=== PATIENT | female | born 1960 | race African-American/Black ===

== ENCOUNTER → 2016-12-03 | Outpatient (CLI) | payer MEDICAID ==
--- NOTE | 2016-12-03 17:27 | WOMENS IMAGING REPORT ---
EXAM DESCRIPTION: BILAT SCREENING MAMMO W/CAD COMPLETED DATE/TIME: 12/03/2016 9:13 am REASON FOR STUDY: BILAT SCREENING MAMMO (Z12.31) Z12.31 ENCNTR SCREEN MAMMOGRAM FOR MALIGNANT NEOPL ASM OF [place] COMPARISON: 2013, 2014 TECHNIQUE: Standard craniocaudal and mediolateral oblique views of each breast recorded using digita l acquisition. LIMITATIONS: None. FINDINGS: No masses, calcifications or architectural distortion. No areas of suspicion. Read with the assistance of CAD. .[facility] - R2 Cenova Version 1.3 .[facility] - R2 Cenova Version 1.3 .[facility] - R2 Cenova Version 2.4 .[facility] [place] - R2 Cenova Version 2.4 .[facility] - R2 Parasitology Teacher Version 9.2 BREAST DENSITY: a. The breasts are almost entirely fatty. BIRAD: 1 NEGATIVE RECOMMENDATION: ROUTINE SCREENING COMMENT: PATIENT NOTIFIED BY LETTER. The [employer] recommends an annual screening mammogram for women aged 40 years or over. Each patient will receive a reminder prior to the anniversary date of her mammogram. The [employer] (ACR) has developed recommendations for screening MRI of the breast s in certain patient populations, to be used in conjunction with mammography. Breast MRI surveillanc e may be appropriate for women with more than 20% lifetime risk of developing breast cancer as deter mined by genetic testing, significant family history of the disease, or history of mantle radiation f or Hodgkins Disease. ACR Practice Guidelines 2008. TECHNICAL DOCUMENTATION: FINDING NUMBER: (1) ASSESSMENT: (1) JOB ID: [id number] [employer]- All Rights Reserved
== END ==
LOC: WI 08:45
PROVIDERS: ATTEND Internal Medicine
DX: Z12.31 Encounter for screening mammogram for malignant neoplasm of breast (principal)
CPT/HCPCS: 77067; G0202

== ENCOUNTER 2016-12-26 19:59 | Emergency (ER) | payer MEDICAID ==
[2016-12-26] MEDS ORDERED: ASPIRIN 81 MG TABLET, CHEWABLE PO ONE (20:34)
--- NOTE | 2016-12-26 20:34 | ER Document Report ---
ED Medical Screen (RME) - General Stated Complaint: BLOOD PRESSURE PROBLEMS Mode of Arrival: Ambulatory Information source: Patient Notes: 56 y/o F presents to ED c/o BLE swelling, elevated blood pressure, and intermittent chest pain with sob over the last 4 days. Reports hx of HTN and CHF. I have greeted and performed a rapid initial assessment of this patient. A comprehensive ED assessment and evaluation of the patient, analysis of test results and completion of the medical decision making process will be conducted by additional ED providers. TRAVEL OUTSIDE OF THE [place] IN LAST 30 DAYS: No - Related Data Allergies/Adverse Reactions: No Known Drug Allergies Allergy (Verified 01/24/16 14:20) tomato [Tomato] Allergy (Verified 01/24/16 14:20) Past Medical History - Past Medical History Cardiac Medical History: Reports: Hx Congestive Heart Failure, Hx Hypercholesterolemia, Hx Hypertension Pulmonary Medical History: Denies: Hx Tuberculosis GI Medical History: Reports: Hx Gastroesophageal Reflux Disease Psychiatric Medical History: Reports: Hx Anxiety, Hx Depression Past Surgical History: Reports: Hx Cholecystectomy, Hx Orthopedic Surgery - Left anterior cruciate ligament repair - Immunizations Immunizations up to date: Yes Hx Diphtheria, Pertussis, Tetanus Vaccination: Yes - unk Physical Exam - General General appearance: Alert In distress: None - Respiratory Respiratory status: No respiratory distress Breath sounds: Normal - Cardiovascular Rhythm: Regular Pulses: Normal: Radial Normal capillary refill: Yes
[2016-12-26 21:29] LABS: ABSOLUTE LYMPHOCYTES (AUTO) 2.9 10^3/uL (0.5-4.7); ABSOLUTE MONOCYTES (AUTO) 0.5 10^3/uL (0.1-1.4); ABSOLUTE NEUT (AUTO) 3.1 10^3/uL (1.7-8.2); BASOPHILS % (AUTO) 0.5 % (0-2); HEMATOCRIT 35.6 % (36.0-47.0); HEMOGLOBIN 11.7 g/dL (12.0-15.5); HGB HCT DIFFERENCE -0.5; LYMPHOCYTES % (AUTO) 44.5 % (13-45); MEAN CORPUSCULAR HEMOGLOBIN 30.2 pg (27.0-33.4); MEAN CORPUSCULAR HGB CONC 32.9 g/dL (32.0-36.0); MEAN CORPUSCULAR VOLUME 92 fl (80-97); MONOCYTES % (AUTO) 7.2 % (3-13); RED BLOOD COUNT 3.87 10^6/uL (3.72-5.28); RED CELL DISTRIBUTION WIDTH 16.4 % (11.5-14.0); SEGMENTED NEUTROPHILS % (AUTO) 47.8 % (42-78); WHITE BLOOD COUNT 6.5 10^3/uL (4.0-10.5)
[2016-12-26 21:31] LABS: APPEARANCE,URINE CLEAR; BILIRUBIN,URINE NEGATIVE (NEGATIVE); GLUCOSE, URINE NEGATIVE (NEGATIVE); KETONES,URINE NEGATIVE (NEGATIVE); LEUKOCYTE ESTERASE,URINE NEGATIVE (NEGATIVE); NITRITE,URINE NEGATIVE (NEGATIVE); PROTEIN,URINE NEGATIVE (NEGATIVE); URINE SPECIFIC GRAVITY 1.003; UROBILINOGEN,URINE NEGATIVE mg/dL (<2.0)
[2016-12-26 21:46] LABS: ALANINE AMINOTRANSFERASE 46 U/L (9-52); ALBUMIN 4.5 g/dL (3.5-5.0); ALKALINE PHOSPHATASE 92 U/L (38-126); ANION GAP 16 (5-19); ASPARTATE AMINO TRANSFERASE 39 U/L (14-36); BILIRUBIN,TOTAL 0.3 mg/dL (0.2-1.3); BLOOD UREA NITROGEN 9 mg/dL (7-20); CARBON DIOXIDE 28 mmol/L (22-30); CHLORIDE 99 mmol/L (98-107); CREATINE KINASE 500 U/L (30-135); CREATININE RESULT 0.93 mg/dL (0.52-1.25); GLUCOSE 146 mg/dL (75-110); POTASSIUM 3.5 mmol/L (3.6-5.0); SODIUM 142.7 mmol/L (137-145); TOTAL PROTEIN 7.5 g/dL (6.3-8.2)
[2016-12-26 21:59] LABS: TROPONIN I < 0.012 ng/mL
--- NOTE | 2016-12-26 22:12 | EKG REPORT ---
SEVERITY:- BORDERLINE ECG - SINUS TACHYCARDIA BORDERLINE R WAVE PROGRESSION, ANTERIOR LEADS BORDERLINE T WAVE ABNORMALITIES : Confirmed by: Rodolfo Batista 26-Dec-2016 22:12:16
[2016-12-26 22:50] VITALS: BP 168/91
== END 2016-12-27 00:30 | disposition left against medical advice (07) ==
LOC: ER 19:59
DX: I10 Essential (primary) hypertension (principal); M79.89 Other specified soft tissue disorders; R07.9 Chest pain, unspecified; R06.02 Shortness of breath; Z91.018 Allergy to other foods; Z53.20 Procedure and treatment not carried out because of patient's decision for unspecified reasons
CPT/HCPCS: 36415; 71020; 80053; 81001; 82550; 82553; 83880; 84484; 85025; 93005; 93010; 99281

== ENCOUNTER 2017-01-14 11:05 | Emergency (ER) | payer MEDICAID ==
[2017-01-14] MEDS ORDERED: ASPIRIN 81 MG TABLET, CHEWABLE PO ONE (11:32)
--- NOTE | 2017-01-14 11:59 | EKG REPORT ---
SEVERITY:- OTHERWISE NORMAL ECG - SINUS TACHYCARDIA : Confirmed by: Krystal Farrell MD 14-Jan-2017 11:57:40
[2017-01-14 12:51] LABS: ABSOLUTE LYMPHOCYTES (AUTO) 1.8 10^3/uL (0.5-4.7); ABSOLUTE MONOCYTES (AUTO) 0.5 10^3/uL (0.1-1.4); ABSOLUTE NEUT (AUTO) 6.6 10^3/uL (1.7-8.2); BASOPHILS % (AUTO) 0.5 % (0-2); HEMATOCRIT 32.9 % (36.0-47.0); HEMOGLOBIN 10.9 g/dL (12.0-15.5); HGB HCT DIFFERENCE -0.2; LYMPHOCYTES % (AUTO) 20.3 % (13-45); MEAN CORPUSCULAR HGB CONC 33.2 g/dL (32.0-36.0); MEAN CORPUSCULAR VOLUME 91 fl (80-97); MONOCYTES % (AUTO) 5.2 % (3-13); RED BLOOD COUNT 3.64 10^6/uL (3.72-5.28); RED CELL DISTRIBUTION WIDTH 16.1 % (11.5-14.0); WHITE BLOOD COUNT 8.9 10^3/uL (4.0-10.5)
[2017-01-14 13:14] LABS: ALANINE AMINOTRANSFERASE 31 U/L (9-52); ALBUMIN 3.8 g/dL (3.5-5.0); ALKALINE PHOSPHATASE 88 U/L (38-126); ANION GAP 11 (5-19); ASPARTATE AMINO TRANSFERASE 36 U/L (14-36); BILIRUBIN,TOTAL 0.4 mg/dL (0.2-1.3); BLOOD UREA NITROGEN 9 mg/dL (7-20); CALCIUM 9.1 mg/dL (8.4-10.2); CARBON DIOXIDE 33 mmol/L (22-30); CHLORIDE 98 mmol/L (98-107); CREATINE KINASE 233 U/L (30-135); CREATININE RESULT 0.74 mg/dL (0.52-1.25); GLUCOSE 100 mg/dL (75-110); POTASSIUM 3.3 mmol/L (3.6-5.0); SODIUM 142.4 mmol/L (137-145); TOTAL PROTEIN 7.3 g/dL (6.3-8.2)
[2017-01-14 13:25] LABS: CREATINE KINASE MB 2.38 ng/mL (<4.55)
[2017-01-14 13:27] LABS: TROPONIN I < 0.012 ng/mL
--- NOTE | 2017-01-14 14:07 | ER Document Report ---
ED General - General Time seen by provider: 13:55 Mode of Arrival: Ambulatory Information source: Patient TRAVEL OUTSIDE OF THE [place] IN LAST 30 DAYS: No - HPI Onset: Other - see HPI note <DELPHINE ESPINOZA - Last Filed: 01/14/17 14:14> <ALMAMIKEL - Last Filed: 01/14/17 14:32> - General Chief Complaint: Chest Pain > 30 Stated Complaint: CHEST PAIN Notes: Patient is a 56-year-old female presented emergency department with complaints of chest pain and headache. Patient states that her chest pain episodes occur about 2 times every hour and a last for 1-2 minutes each time. Patient states that located in the middle of her chest and around her left breast. Patient states that during these episodes she becomes short of breath, nauseous, diaphoretic, and cough. Patient states she gets a headache after her chest pain while he was in these headaches last for approximately 30 minutes. Patient states that these chest pain episodes occur 6-7 times each day. Patient states these episodes have been going on all week long. Patient has had increased level of stress over the past year. Patient lost her sister in December, her mother approximately 8-9 months ago and just last week she lost her son. Patient also states that she gets some dizzy spells where she has to sit down and these dizzy spells have increased with the chest pain episodes. Patient did not receive flu shot this year but did receive a pneumonia vaccination; patient requests a flu shot today in the emergency department. Patient had a cardiac catheterization in the past 2 years that showed no significant finding. Patient's PCP is Dr. Beaslye. (DELPHINE ESPINOZA ) - Related Data Allergies/Adverse Reactions: No Known Drug Allergies Allergy (Verified 01/24/16 14:20) tomato [Tomato] Allergy (Verified 01/24/16 14:20) Past Medical History - General Information source: Patient - Social History Smoking Status: Unknown if Ever Smoked Family History: Other - Father in an MVC at a young age, mother is 72 and bedridden with arthritis, there is no history of early age onset coronary artery disease. - Past Medical History Cardiac Medical History: Reports: Hx Congestive Heart Failure, Hx Hypercholesterolemia, Hx Hypertension GI Medical History: Reports: Hx Gastroesophageal Reflux Disease Psychiatric Medical History: Reports: Hx Anxiety, Hx Depression Past Surgical History: Reports: Hx Cholecystectomy, Hx Orthopedic Surgery - Left anterior cruciate ligament repair - Immunizations Immunizations up to date: Yes Hx Diphtheria, Pertussis, Tetanus Vaccination: Yes - unk Hx Pneumococcal Vaccination: 04/13/14 <DELPHINE ESPINOZA - Last Filed: 01/14/17 14:14> Review of Systems - Review of Systems Constitutional: No symptoms reported EENT: No symptoms reported Cardiovascular: See HPI, Chest pain Respiratory: See HPI, Cough, Short of breath Gastrointestinal: See HPI, Nausea Genitourinary: No symptoms reported Female Genitourinary: No symptoms reported Musculoskeletal: No symptoms reported Skin: No symptoms reported Hematologic/Lymphatic: No symptoms reported Neurological/Psychological: See HPI, Headaches -: Yes All other systems reviewed and negative <DELPHINE ESPINOZA - Last Filed: 01/14/17 14:14> Physical Exam - Vital signs Interpretation: Normal - General General appearance: Appears well, Alert In distress: Mild - HEENT Head: Normocephalic, Atraumatic Eyes: Normal Pupils: PERRL Mucous membranes: Moist - Respiratory Respiratory status: No respiratory distress Chest status: Nontender Breath sounds: Normal Chest palpation: Normal - Cardiovascular Rhythm: Regular Heart sounds: Normal auscultation Murmur: No - Abdominal Inspection: Morbidly Obese Distension: No distension Bowel sounds: Normal Tenderness: Nontender Organomegaly: No organomegaly - Back Back: Normal, Nontender - Extremities General upper extremity: Normal inspection, Normal ROM, Normal strength General lower extremity: Normal inspection, Normal ROM, Normal strength - Neurological Neuro grossly intact: Yes Cognition: Normal Orientation: AAOx4 Emmanuel Coma Scale Eye Opening: Spontaneous [place] Coma Scale Verbal: Oriented Emmanuel Coma Scale Motor: Obeys Commands Emmanuel Coma Scale Total: 15 Speech: Normal - Psychological Associated symptoms: Normal affect, Normal mood - Skin Skin Temperature: Warm Skin Moisture: Dry <DELPHINE ESPINOZA - Last Filed: 01/14/17 14:14> Course - Laboratory Result Diagrams: 01/14/17 12:17 01/14/17 12:17 <DELPHINE ESPINOZA - Last Filed: 01/14/17 14:14> - Laboratory Result Diagrams: 01/14/17 12:17 01/14/17 12:17 - Diagnostic Test Radiology reviewed: Image reviewed, Reports reviewed - Chest x-ray does not show any acute process - EKG Interpretation by Ok EKG shows normal: Sinus rhythm, [place], Intervals, ST-T Waves. abnormal: QRS Complexes - Borderline R-wave progression in anterior leads Rate: Tachycardia - 107 When compared to previous EKG there are: No significant change <MIKEL MARQUEZ - Last Filed: 01/14/17 14:32> - Vital Signs Vital signs: Temp Pulse Resp BP Pulse Ox 99.3 F 107 H 33 H 159/97 H 95 01/14/17 11:19 01/14/17 11:19 01/14/17 13:01 01/14/17 13:01 01/14/17 13:01 (DELPHINE ESPINOZA) (MIKEL MARQUEZ) - Laboratory Laboratory results interpreted by ct: 01/14/17 01/14/17 12:17 12:17 RBC 3.64 L Hgb 10.9 L Hct 32.9 L RDW 16.1 H Potassium 3.3 L Carbon Dioxide 33 H Creatine Kinase 233 H (DELPHINE ESPINOZA) (MIKEL MARQUEZ) Discharge <DELPHINE ESPINOZA - Last Filed: 01/14/17 14:14> <MIKEL MARQUEZ - Last Filed: 01/14/17 14:32> - Discharge Clinical Impression: Acute reaction to situational stress Chest pain Qualifiers: Chest pain type: unspecified Qualified Code(s): R07.9 - Chest pain, unspecified Condition: Stable Disposition: HOME, SELF-CARE Additional Instructions: Chest Pain of Unclear Cause: The exact cause of your chest pain isn't clear. Fortunately, there is no evidence of a dangerous medical condition. Further testing may be required to find the source of the pain. Most often, we find that this pain is coming from the chest wall -- the muscles or rib joints in the chest. But chest pain can come from the lung and lung lining, the esophagus, the heart valves or heart lining, and even the stomach or gallbladder. Rest. Eat lightly until the pain is gone. We may prescribe medicine for pain and inflammation. You should call the physician immediately if the pain radiates to the shoulder, jaw or arms; if you start to run a fever or develop a cough; or if you develop shortness of breath, or other new or alarming symptoms. Anxiety/STRESS The physician feels that some of your health problems are being caused by anxiety and stress. Anxiety affects your health in many ways. Anxiety alone can cause palpitations, sweats, chest pains, abdominal pains, shortness of breath, and headaches. It contributes to ulcer disease, high blood pressure, irritable bowel syndrome, and has been shown to cause flare-ups of many other diseases. Anxiety is not a simple disorder to treat. If the anxiety is due to recent life stresses, you may simply need time to "work through" the changes. If the anxiety is due to an underlying unhappiness with yourself or due to psychiatric disturbance, professional help will be needed. Your physician can refer you for further help if needed. Anti-anxiety medication is occasionally given if the stress is acute or if you are having trouble sleeping. Chronic or frequent use of these medications is not a good idea because the body becomes reliant on it, preventing you from dealing with life's normal stresses. //////////////////////////////////////////////////////////////////////////////// ///////////////////////////////////////////////////////////////////////////// Your chest x-ray, EKG, and lab work are all unremarkable. Your symptoms seem to be related to the increased stress that you've been under recently. You should continue your regular medications. Try to get plenty of rest. Follow-up with your doctor tomorrow as scheduled. RETURN TO THE EMERGENCY ROOM IF ANY NEW OR WORSENING SYMPTOMS. Referrals: ED BEASLEY MD [Primary Care Provider] - Follow up tomorrow Scribe Attestation: 01/14/17 14:32 I personally performed the services described in the documentation, reviewed and edited the documentation which was dictated to the scribe in my presence, and it accurately records my words and actions. (MIKEL MARQUEZ) Scribe Documentation - Scribe Written by Scribe:: Delphine Espinoza 01/14/17 acting as scribe for :: Alma <DELPHINE ESPINOZA - Last Filed: 01/14/17 14:14>
[2017-01-14] MEDS ORDERED: INFLUENZA ADLT QUAD (36MOS+) 2016-17 VAC 0.5 ML SYR IM ONE (14:52)
[2017-01-14 15:29] VITALS: BP 133/90
== END 2017-01-14 15:30 | disposition home or self-care (01) ==
LOC: ER 11:05
DX: R07.9 Chest pain, unspecified (principal); F43.0 Acute stress reaction; R51 Headache; R06.02 Shortness of breath; R11.0 Nausea; R61 Generalized hyperhidrosis; R05 Cough; R00.0 Tachycardia, unspecified; R42 Dizziness and giddiness; I10 Essential (primary) hypertension; Z23 Encounter for immunization
CPT/HCPCS: 93005; 99285; 36415; 82553; 82550; 85025; 80053; 84484; 71010; 90686; 93010; G0008; 90471

== ENCOUNTER 2017-01-29 13:34 | Emergency (ER) | payer MEDICAID ==
--- NOTE | 2017-01-29 13:45 | ER Document Report ---
ED Medical Screen (RME) - General Stated Complaint: POSSIBLE BUG BITE Notes: 56 yo female c/o swelling and color change to left lower leg and foot x several months. pt is concerned she may have been bitten by insect several months ago. left foot is warm, nontender. few hyperpigmented areas to dorsal foot TRAVEL OUTSIDE OF THE [place] IN LAST 30 DAYS: No - Related Data Allergies/Adverse Reactions: No Known Drug Allergies Allergy (Verified 01/24/16 14:20) tomato [Tomato] Allergy (Verified 01/24/16 14:20) Past Medical History - Past Medical History Cardiac Medical History: Reports: Hx Congestive Heart Failure, Hx Hypercholesterolemia, Hx Hypertension Pulmonary Medical History: Denies: Hx Tuberculosis Renal/ Medical History: Denies: Hx Peritoneal Dialysis GI Medical History: Reports: Hx Gastroesophageal Reflux Disease Psychiatric Medical History: Reports: Hx Anxiety, Hx Depression Past Surgical History: Reports: Hx Cholecystectomy, Hx Orthopedic Surgery - Left anterior cruciate ligament repair - Immunizations Immunizations up to date: Yes Hx Diphtheria, Pertussis, Tetanus Vaccination: Yes - unk
--- NOTE | 2017-01-29 15:59 | ER Document Report ---
ED General - General Chief Complaint: Insect Bite Stated Complaint: POSSIBLE BUG BITE Mode of Arrival: Ambulatory Information source: Patient Notes: Patient is a 56 yo female with PMhx of HTN, HLD who presents with 2 month history of leg pain and discoloration. She states pain in legs are worse with ambulation and relieved rest. She believes she was bit by a bug or spider approximately 2 months ago to lateral upper thigh but denies any bleeding , drainage, erythema, warmth to site. She endorses swelling and dark coloration to her lower extremities, left worse than right. She also reports bilateral knee pain that is worse in the morning before getting out of bed. She takes tramadol for pain which does provide relief. She does take cholesterol medication, lisinopril and daily 81 mg ASA. She is a non-smoker. TRAVEL OUTSIDE OF THE [place] IN LAST 30 DAYS: No - Related Data Allergies/Adverse Reactions: No Known Drug Allergies Allergy (Verified 01/29/17 13:39) tomato [Tomato] Allergy (Verified 01/29/17 13:39) Past Medical History - Social History Smoking Status: Never Smoker Chew tobacco use (# tins/day): No Frequency of alcohol use: None Drug Abuse: None Family History: Other - Father in an MVC at a young age, mother is 72 and bedridden with arthritis, there is no history of early age onset coronary artery disease. Patient has suicidal ideation: No Patient has homicidal ideation: No - Past Medical History Cardiac Medical History: Reports: Hx Congestive Heart Failure, Hx Hypercholesterolemia, Hx Hypertension Pulmonary Medical History: Denies: Hx Tuberculosis Renal/ Medical History: Denies: Hx Peritoneal Dialysis GI Medical History: Reports: Hx Gastroesophageal Reflux Disease Psychiatric Medical History: Reports: Hx Anxiety, Hx Depression Past Surgical History: Reports: Hx Cholecystectomy, Hx Orthopedic Surgery - Left anterior cruciate ligament repair - Immunizations Immunizations up to date: Yes Hx Diphtheria, Pertussis, Tetanus Vaccination: Yes - unk Hx Pneumococcal Vaccination: 04/13/14 Review of Systems - Review of Systems Constitutional: No symptoms reported EENT: No symptoms reported Cardiovascular: See HPI Respiratory: No symptoms reported Gastrointestinal: No symptoms reported Genitourinary: No symptoms reported Female Genitourinary: No symptoms reported Musculoskeletal: No symptoms reported Skin: See HPI Hematologic/Lymphatic: No symptoms reported Neurological/Psychological: No symptoms reported Physical Exam - Vital signs Vitals: Temp Pulse Resp BP Pulse Ox 97.6 F 90 18 152/71 H 96 01/29/17 13:39 01/29/17 13:39 01/29/17 13:39 01/29/17 13:39 01/29/17 13:39 Interpretation: Hypertensive - Notes Notes: PHYSICAL EXAM: CONSTITUTIONAL: Alert and oriented, well-appearing and in no acute distress. HENT: Normocephalic, atraumatic. Moist mucous membranes. EYES: Pupils equal round and reactive to light, EOM intact. Sclera anicteric, conjunctiva are normal. No entrapment. HEART: Regular rate and rhythm without murmurs. LUNGS: CTAB and equal. No wheezes, rales or rhonchi. BACK: nontender, no paraspinous spasm, 5+/5 strengths, DTRs 2+, SLR -. EXTREMITIES: Bilateral knees -tender to palpation in infrapatellar region without swelling, erythema, effusion, edema. Normal range of motion, no pitting edema. No cyanosis. Cap Refill <3 seconds. 2+ equal distal pulses bilaterally. No calf tenderness. NEURO: Cranial nerves grossly intact. Normal sensory/motor exams. PSYCH: Normal mood, normal affect. SKIN: Warm and dry. Normal turgor. No rashes or lesions noted. No puncture wound to upper left thigh or palpable collection of fluid. Brawny dark discoloration to distal extremities in the pre-tibial region bilaterally, L worse than R. No erythema, area of cellulitis or abscess. Course - Re-evaluation Re-evalutation: 01/29/17 16:02 Patient seen and examined. No evidence of cellulitis, abscess or spider bite to left upper thigh. No calf tenderness or evidence of compartment syndrome. Exams of knees consistent with osteoarthritis, skin discoloration consistent with PVD and history consistent with concern for claudication. Discussed with patient appropriate outpatient follow-up, current management including compliance with HTN, HLD medications and ASA therapy. Discharged home in stable condition, follow-up with PMD/Cardio. Patient verbally agreed with management and plan. All questions answered. - Vital Signs Vital signs: Temp Pulse Resp BP Pulse Ox 97.6 F 90 18 152/71 H 96 01/29/17 13:39 01/29/17 13:39 01/29/17 13:39 01/29/17 13:39 01/29/17 13:39 Discharge - Discharge Clinical Impression: Claudication of both lower extremities, Hyperpigmentation Osteoarthritis Qualifiers: Osteoarthritis location: knee Osteoarthritis type: primary Laterality: bilateral Qualified Code(s): M17.0 - Bilateral primary osteoarthritis of knee Condition: Stable Disposition: HOME, SELF-CARE Additional Instructions: Peripheral Vascular Disease You have narrowing of the arteries in your arms and legs. This is called peripheral vascular disease. It's caused by "hardening of the arteries" and cholesterol deposits. This problem develops gradually due to high blood pressure , cigarette smoking, diabetes, or high cholesterol. Symptoms can include pain leg and foot cramps, leg pain while walking, and numbness and discoloration in the feet or toes. Vascular disease makes the feet and legs prone to infection, skin ulcers, and slow healing of injuries. A narrowed artery can suddenly block, resulting in complete loss of circulation to a foot or toe. An ultrasound or angiogram can show if the blockage can be treated with surgery. Non-surgical treatment includes regular exercise with brief periods of rest during the exercise. This improves the circulation. If you smoke, stop. Elevated cholesterol, high blood pressure, or high blood sugar should be treated. Medication can sometimes help blood get through the narrowed arteries. Take good care of your feet. Wear shoes that fit properly. Be very careful not to injure your feet. Even minor cuts need immediate care to prevent infection and skin ulcers. Call the doctor or return if you develop severe foot or leg pain, fever, signs of infection (redness, pain, swelling), or a foot or toe becomes weak, cold, pale, or dusky. Continue to take your daily aspirin, high blood pressure and high cholesterol medication. Return immediately for any new or worsening symptoms. Follow-up with primary care provider, call tomorrow to make followup appointment. Forms: Elevated Blood Pressure
[2017-01-29 16:39] VITALS: BP 167/93
== END 2017-01-29 16:43 | disposition home or self-care (01) ==
LOC: ER 13:34
DX: I73.9 Peripheral vascular disease, unspecified (principal); L81.9 Disorder of pigmentation, unspecified; M17.0 Bilateral primary osteoarthritis of knee; I50.9 Heart failure, unspecified; E78.00 Pure hypercholesterolemia, unspecified; I11.0 Hypertensive heart disease with heart failure; Z90.49 Acquired absence of other specified parts of digestive tract; Z79.82 Long term (current) use of aspirin
CPT/HCPCS: 99281

== ENCOUNTER 2017-04-09 12:30 | Emergency (ER) | payer MEDICAID ==
--- NOTE | 2017-04-09 20:25 | ER Document Report ---
ED Respiratory Problem - General Time Seen by Provider: 04/09/17 20:12 TRAVEL OUTSIDE OF THE [place] IN LAST 30 DAYS: No - Related Data Allergies/Adverse Reactions: No Known Drug Allergies Allergy (Verified 01/29/17 13:39) tomato [Tomato] Allergy (Verified 01/29/17 13:39) Past Medical History - Social History Family History: Other - Father in an MVC at a young age, mother is 72 and bedridden with arthritis, there is no history of early age onset coronary artery disease. - Past Medical History Cardiac Medical History: Reports: Hx Congestive Heart Failure, Hx Hypercholesterolemia, Hx Hypertension Pulmonary Medical History: Denies: Hx Tuberculosis Renal/ Medical History: Denies: Hx Peritoneal Dialysis GI Medical History: Reports: Hx Gastroesophageal Reflux Disease Psychiatric Medical History: Reports: Hx Anxiety, Hx Depression Past Surgical History: Reports: Hx Cholecystectomy, Hx Orthopedic Surgery - Left anterior cruciate ligament repair - Immunizations Immunizations up to date: Yes Hx Diphtheria, Pertussis, Tetanus Vaccination: Yes - unk Hx Pneumococcal Vaccination: 04/13/14
[2017-04-09] MEDS ORDERED: ASPIRIN 81 MG TABLET, CHEWABLE PO ONE (20:26)
[2017-04-09] MEDS ORDERED: ONDANSETRON 4 MG TAB.RAPDIS PO ONE (20:51)
[2017-04-09] MEDS ORDERED: CARVEDILOL 12.5 MG TABLET PO ONE (20:51)
[2017-04-09] MEDS ORDERED: LISINOPRIL 10 MG TABLET PO ONE (20:52)
--- NOTE | 2017-04-09 20:53 | ER Document Report ---
ED General - General Chief Complaint: Weakness Time Seen by Provider: 04/09/17 20:12 Notes: Patient is a 56-year-old female comes emergency department for chief complaint of feeling weak for about 3 days with intermittent episodes of nausea, a few episodes of vomiting, occasional cough with some yellowish greenish sputum production, feeling short of breath, and eating less. She was evaluated by her primary care provider today and was sent to the emergency department for evaluation. TRAVEL OUTSIDE OF THE [place] IN LAST 30 DAYS: No - Related Data Allergies/Adverse Reactions: No Known Drug Allergies Allergy (Verified 01/29/17 13:39) tomato [Tomato] Allergy (Verified 01/29/17 13:39) Past Medical History - General Information source: Patient - Social History Smoking Status: Former Smoker Drug Abuse: None Lives with: Family Family History: Reviewed & Not Pertinent, Other - Father in an MVC at a young age, mother is 72 and bedridden with arthritis, there is no history of early age onset coronary artery disease. - Past Medical History Cardiac Medical History: Reports: Hx Congestive Heart Failure, Hx Hypercholesterolemia, Hx Hypertension Pulmonary Medical History: Denies: Hx Tuberculosis Renal/ Medical History: Denies: Hx Peritoneal Dialysis GI Medical History: Reports: Hx Gastroesophageal Reflux Disease Psychiatric Medical History: Reports: Hx Anxiety, Hx Depression Past Surgical History: Reports: Hx Cholecystectomy, Hx Orthopedic Surgery - Left anterior cruciate ligament repair - Immunizations Immunizations up to date: Yes Hx Diphtheria, Pertussis, Tetanus Vaccination: Yes - unk Hx Pneumococcal Vaccination: 04/13/14 Review of Systems - Review of Systems Constitutional: See HPI EENT: No symptoms reported Cardiovascular: See HPI Respiratory: See HPI Gastrointestinal: See HPI Genitourinary: See HPI Female Genitourinary: No symptoms reported Musculoskeletal: No symptoms reported Skin: No symptoms reported Hematologic/Lymphatic: No symptoms reported Neurological/Psychological: See HPI Physical Exam - Vital signs Vitals: Temp Pulse Resp BP Pulse Ox 97.9 F 92 18 186/112 H 96 04/09/17 23:00 04/09/17 23:00 04/09/17 23:00 04/09/17 23:00 04/09/17 23:00 Interpretation: Normal - General General appearance: Appears well, Alert In distress: None - Is alert and well-appearing - HEENT Head: Normocephalic, Atraumatic Eyes: Normal Conjunctiva: Normal Extraocular movements intact: Yes Eyelashes: Normal Pupils: PERRL Mucous membranes: Normal Pharynx: Normal Neck: Normal - Respiratory Respiratory status: No respiratory distress. No: Respiratory distress, Labored , Tachypnea Chest status: Nontender Breath sounds: Normal. No: Decreased air movement, Wheezing Chest palpation: Normal - Cardiovascular Rhythm: Regular. No: Tachycardia Heart sounds: Normal auscultation, S1 appreciated, S2 appreciated Murmur: No - Abdominal Inspection: Normal Distension: No distension Bowel sounds: Normal Tenderness: Nontender Organomegaly: No organomegaly - Back Back: Normal, Nontender - Extremities General upper extremity: Normal inspection, Nontender, Normal color, Normal ROM , Normal temperature General lower extremity: Normal inspection, Nontender, Normal color, Normal ROM , Normal temperature, Normal weight bearing. No: Darius's sign - Neurological Neuro grossly intact: Yes Cognition: Normal Orientation: AAOx4 [place] Coma Scale Eye Opening: Spontaneous Emmanuel Coma Scale Verbal: Oriented [place] Coma Scale Motor: Obeys Commands [place] Coma Scale Total: 15 Speech: Normal Motor strength normal: LUE, RUE, LLE, RLE Sensory: Normal - Psychological Associated symptoms: Normal affect, Normal mood - Skin Skin Temperature: Warm Skin Moisture: Dry Skin Color: Normal Course - Re-evaluation Re-evalutation: Patient is nervous appearing, states she feels short of breath on my evaluation , slightly jittery in appearance, however her lungs are clear, she has no tachypnea, no hypoxia, chest x-ray unremarkable, BNP unremarkable, cardiac enzymes unremarkable. No leukocytosis or fever. Patient states she has had a cough but has normal respiratory exam abdomen is soft, chemistry unremarkable, vital signs unremarkable, no acute abnormalities noted. Patient states that she is nauseated and that is the reason she did not take her medicine, although she did take certain medications and not others. Provided with her blood pressure medication, given nausea medication. On reevaluation patient relaxed and well-appearing. Blood pressure improving shortly after patient was given her medications. Urinalysis shows some leukocytes and bacteria, stating she is having urinary symptoms. Also when she is having coughing and sputum production. Tachycardia , hypoxia, tachypnea, or suggestion of acute etiology such as pulmonary embolism or ACS. Patient will be treated with doxycycline for potential pneumonia and coverage of urinary symptoms, provided with Zofran for nausea along with prescription, follow-up closely with her primary provider, discussed return precautions in detail. Patient and significant other states satisfaction with this, patient remains smiling and well-appearing on reexamination discharge 04/10/17 Requesting Diflucan after taking the antibiotics because of history of yeast infections. - Vital Signs Vital signs: Temp Pulse Resp BP Pulse Ox 98.1 F 84 18 170/107 H 96 04/10/17 00:50 04/10/17 00:50 04/10/17 00:50 04/10/17 00:50 04/10/17 00:50 - Laboratory Result Diagrams: 04/09/17 14:40 04/09/17 14:40 Laboratory results interpreted by me: 04/09/17 23:16 Urine Protein 30 H Discharge - Discharge Clinical Impression: Generalized weakness, Productive cough Condition: Stable Disposition: HOME, SELF-CARE Additional Instructions: The chest x-ray and workup did not show any concerning abnormalities. Take doxycycline antibiotic as directed for productive cough and borderline urinalysis. Take the Zofran or Phenergan for nausea. Please do not skip your daily medications and take them as prescribed. Return to emergency department for any concerning worsening symptoms including abdominal pain, chest pain, difficulty breathing, or any other concerning worsening symptoms. Prescriptions: Doxycycline Hyclate 100 mg PO BID #14 capsule Fluconazole [Diflucan] 150 mg PO ONCE PRN #1 tablet PRN Reason: Promethazine HCl [Phenergan 25 mg Tablet] 1 - 2 tab PO Q6H PRN #15 tablet PRN Reason: Forms: Elevated Blood Pressure Referrals: ED BEASLEY MD [Primary Care Provider] - Follow up as needed
[2017-04-10 00:01] LABS: APPEARANCE,URINE SLIGHTLY-CLOUDY; BILIRUBIN,URINE NEGATIVE (NEGATIVE); GLUCOSE, URINE NEGATIVE (NEGATIVE); KETONES,URINE NEGATIVE (NEGATIVE); LEUKOCYTE ESTERASE,URINE NEGATIVE (NEGATIVE); NITRITE,URINE NEGATIVE (NEGATIVE); PROTEIN,URINE 30 mg/dL (NEGATIVE); URINE SPECIFIC GRAVITY 1.018; UROBILINOGEN,URINE NEGATIVE mg/dL (<2.0)
[2017-04-10] MEDS ORDERED: ONDANSETRON 4 MG TAB.RAPDIS PO ONE (00:22)
[2017-04-10] MEDS ORDERED: DOXYCYCLINE HYCLATE 100 MG TABLET PO ONE (00:22)
[2017-04-10 00:51] VITALS: BP 170/107
[2017-04-10 09:13] LABS: ABSOLUTE BASOPHILS # (AUTO) 0.1 10^3/uL (0.0-0.2); ABSOLUTE LYMPHOCYTES (AUTO) 2.9 10^3/uL (0.5-4.7); ABSOLUTE MONOCYTES (AUTO) 0.6 10^3/uL (0.1-1.4); ABSOLUTE NEUT (AUTO) 3.5 10^3/uL (1.7-8.2); BASOPHILS % (AUTO) 0.8 % (0-2); EOSINOPHILS % (AUTO) 0.1 % (0-6); HEMATOCRIT 40.8 % (36.0-47.0); HEMOGLOBIN 13.1 g/dL (12.0-15.5); HGB HCT DIFFERENCE -1.5; LYMPHOCYTES % (AUTO) 40.6 % (13-45); MEAN CORPUSCULAR HEMOGLOBIN 30.1 pg (27.0-33.4); MEAN CORPUSCULAR HGB CONC 32.2 g/dL (32.0-36.0); MEAN CORPUSCULAR VOLUME 94 fl (80-97); MONOCYTES % (AUTO) 8.8 % (3-13); RED BLOOD COUNT 4.36 10^6/uL (3.72-5.28); RED CELL DISTRIBUTION WIDTH 16.5 % (11.5-14.0); SEGMENTED NEUTROPHILS % (AUTO) 49.7 % (42-78); WHITE BLOOD COUNT 7.1 10^3/uL (4.0-10.5)
--- NOTE | 2017-04-10 10:31 | EKG REPORT ---
SEVERITY:- ABNORMAL ECG - SINUS RHYTHM FIRST DEGREE AV BLOCK CONSIDER ANTERIOR INFARCT : Confirmed by: Krystal Farrell MD 10-Apr-2017 10:30:48
[2017-04-10 12:02] LABS: CREATINE KINASE MB 1.18 ng/mL (<4.55); TROPONIN I < 0.012 ng/mL
[2017-04-10 12:03] LABS: ALBUMIN 4.8 g/dL (3.5-5.0); ANION GAP 14 (5-19); BLOOD UREA NITROGEN 14 mg/dL (7-20); CALCIUM 10.3 mg/dL (8.4-10.2); CARBON DIOXIDE 28 mmol/L (22-30); CHLORIDE 101 mmol/L (98-107); CREATININE RESULT 0.74 mg/dL (0.52-1.25); GLUCOSE 105 mg/dL (75-110); POTASSIUM 3.9 mmol/L (3.6-5.0); SODIUM 142.7 mmol/L (137-145)
[2017-04-10 12:04] LABS: ALANINE AMINOTRANSFERASE 45 U/L (9-52); ALKALINE PHOSPHATASE 89 U/L (38-126); ASPARTATE AMINO TRANSFERASE 43 U/L (14-36); BILIRUBIN,DIRECT 0.5 mg/dL (0.0-0.4); BILIRUBIN,TOTAL 0.7 mg/dL (0.2-1.3); TOTAL PROTEIN 8.6 g/dL (6.3-8.2)
[2017-04-10 12:13] LABS: CREATINE KINASE 238 U/L (30-135)
== END 2017-04-10 00:52 | disposition home or self-care (01) ==
LOC: ER 12:30
DX: R53.1 Weakness (principal); R05 Cough; R11.0 Nausea; I50.9 Heart failure, unspecified; E78.00 Pure hypercholesterolemia, unspecified; Z87.891 Personal history of nicotine dependence; Z90.49 Acquired absence of other specified parts of digestive tract
CPT/HCPCS: 93005; 99285; 36415; 82553; 82550; 85025; 80053; 81001; 84484; 83880; 71020; 93010; J3490 ×2; S0119 ×2; 85610

== ENCOUNTER 2017-06-10 17:13 | Emergency (ER) | payer SELFPAY ==
[2017-06-10] MEDS ORDERED: ASPIRIN 325 MG TABLET PO ONE (18:01)
--- NOTE | 2017-06-10 18:03 | ER Document Report ---
ED Medical Screen (RME) - General Chief Complaint: Chest Pain Stated Complaint: FALL/KNEE,SHOULDER AND BACK PAIN Time Seen by Provider: 06/10/17 17:58 Information source: Patient Notes: 56-year-old female who walks with a walker secondary to a work-related injury when she accidentally fell today onto her left knee. She states getting up she started to feel some substernal nonradiating chest pain. She denies any shortness of breath, nausea, vomiting, calf pain or leg swelling. Patient also states a mild headache. She denies hitting her head. She does not take blood thinning medications. TRAVEL OUTSIDE OF THE [place] IN LAST 30 DAYS: No - Related Data Allergies/Adverse Reactions: No Known Drug Allergies Allergy (Verified 06/10/17 17:16) tomato [Tomato] Allergy (Verified 06/10/17 17:16) Past Medical History - Social History Frequency of alcohol use: None Drug Abuse: None - Past Medical History Cardiac Medical History: Reports: Hx Congestive Heart Failure, Hx Hypercholesterolemia, Hx Hypertension Pulmonary Medical History: Denies: Hx Tuberculosis Renal/ Medical History: Denies: Hx Peritoneal Dialysis GI Medical History: Reports: Hx Gastroesophageal Reflux Disease Psychiatric Medical History: Reports: Hx Anxiety, Hx Depression Past Surgical History: Reports: Hx Cholecystectomy, Hx Orthopedic Surgery - Left anterior cruciate ligament repair - Immunizations Immunizations up to date: Yes Hx Diphtheria, Pertussis, Tetanus Vaccination: Yes - unk Physical Exam - Vital signs Vitals: Temp Pulse Resp BP Pulse Ox 98.2 F 106 H 16 153/87 H 98 06/10/17 17:17 06/10/17 17:17 06/10/17 17:17 06/10/17 17:17 06/10/17 17:17 Course - Vital Signs Vital signs: Temp Pulse Resp BP Pulse Ox 98.2 F 106 H 16 153/87 H 98 06/10/17 17:17 06/10/17 17:17 06/10/17 17:17 06/10/17 17:17 06/10/17 17:17
--- NOTE | 2017-06-10 18:27 | RADIOLOGY REPORT (SQ) ---
EXAM DESCRIPTION: CHEST PA/LAT COMPLETED DATE/TIME: 06/10/2017 6:19 pm REASON FOR STUDY: Pit; cp COMPARISON: 04/09/2017 EXAM PARAMETERS: NUMBER OF VIEWS: two views TECHNIQUE: Digital Frontal and Lateral radiographic views of the chest acquired. RADIATION DOSE: NA LIMITATIONS: none FINDINGS: LUNGS AND PLEURA: No opacities, masses or pneumothorax. No pleural effusion. MEDIASTINUM AND HILAR STRUCTURES: No masses or contour abnormalities. HEART AND VASCULAR STRUCTURES: Heart normal size. No evidence for failure. BONES: No acute findings. HARDWARE: None in the chest. OTHER: No other significant finding. IMPRESSION: NO SIGNIFICANT RADIOGRAPHIC FINDING IN THE CHEST. TECHNICAL DOCUMENTATION: JOB ID: [id number] [employer]- All Rights Reserved
--- NOTE | 2017-06-10 18:31 | RADIOLOGY REPORT (SQ) ---
EXAM DESCRIPTION: KNEE LEFT 4 VIEW COMPLETED DATE/TIME: 06/10/2017 6:19 pm REASON FOR STUDY: Fall COMPARISON: None. NUMBER OF VIEWS: Four views. TECHNIQUE: AP, lateral, and both oblique radiographic images acquired of the left knee. LIMITATIONS: None. FINDINGS: MINERALIZATION: Normal. BONES: No acute fracture or dislocation. No worrisome bone lesions. There appears to have been an A CL repair. JOINT: There is narrowing of the medial joint compartment with marginal osteophytes. There are promi nent posterior patellar and trochlear osteophytes. A calcified lesion is present posterior to the kn ee suggesting a calcified synovial chondroma. SOFT TISSUES: No soft tissue swelling. No radio-opaque foreign body. OTHER: No other significant finding. IMPRESSION: Extensive degenerative joint changes as described. No acute abnormality is seen. TECHNICAL DOCUMENTATION: JOB ID: [id number] [employer]- All Rights Reserved
[2017-06-10 19:13] LABS: ABSOLUTE LYMPHOCYTES (AUTO) 3.7 10^3/uL (0.5-4.7); ABSOLUTE MONOCYTES (AUTO) 0.6 10^3/uL (0.1-1.4); ABSOLUTE NEUT (AUTO) 3.2 10^3/uL (1.7-8.2); BASOPHILS % (AUTO) 0.5 % (0-2); EOSINOPHILS % (AUTO) 0.3 % (0-6); HEMATOCRIT 37.5 % (36.0-47.0); HEMOGLOBIN 12.3 g/dL (12.0-15.5); HGB HCT DIFFERENCE -0.6; MEAN CORPUSCULAR HGB CONC 32.7 g/dL (32.0-36.0); MEAN CORPUSCULAR VOLUME 92 fl (80-97); MONOCYTES % (AUTO) 7.6 % (3-13); RED BLOOD COUNT 4.09 10^6/uL (3.72-5.28); RED CELL DISTRIBUTION WIDTH 16.2 % (11.5-14.0); SEGMENTED NEUTROPHILS % (AUTO) 42.6 % (42-78); WHITE BLOOD COUNT 7.5 10^3/uL (4.0-10.5)
--- NOTE | 2017-06-10 19:34 | ER Document Report ---
ED General - General Chief Complaint: Chest Pain Stated Complaint: FALL/KNEE,SHOULDER AND BACK PAIN Time Seen by Provider: 06/10/17 17:58 Mode of Arrival: Ambulatory Information source: Patient Notes: 36-year-old female presents to ED knee pain left knee pain right shoulder and back pain and states she was having chest pain earlier but not when I went in to see her. She states she lost her balance when stepping on her right knee fell landed on her left knee bounced over to her right shoulder and back injuring those. She states she has multiple Worker's Comp. injuries on her knees and shoulders that have become painful due to his fall. States she also had some palpitations and dizziness but no chest pain at this time. TRAVEL OUTSIDE OF THE [place] IN LAST 30 DAYS: No - HPI Onset: This afternoon Onset/Duration: Sudden Quality of pain: Achy, Sharp Severity: Moderate Pain Level: 4 Associated symptoms: Body/muscle aches, Other - Back pain bilateral knee pain bilateral shoulder pain and a mild headache. She denies hitting her head. She denies any nausea vomiting shortness of breath leg or calf pain. She does not take any blood thinners. 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 Patient has suicidal ideation: No Patient has homicidal ideation: No - Past Medical History Cardiac Medical History: Reports: Hx Congestive Heart Failure, Hx Hypercholesterolemia, Hx Hypertension Pulmonary Medical History: Reports: Hx COPD EENT Medical History: Reports: None Neurological Medical History: Reports: None Endocrine Medical History: Reports: None Renal/ Medical History: Reports: None Malignancy Medical History: Reports: None GI Medical History: Reports: Hx Gastroesophageal Reflux Disease Musculoskeltal Medical History: Reports Hx Arthritis, Reports Hx Musculoskeletal Deformity, Reports Hx Musculoskeletal Trauma Skin Medical History: Reports None Psychiatric Medical History: Reports: Hx Anxiety, Hx Depression, Other - panic Traumatic Medical History: Reports: Hx Fractures Infectious Medical History: Reports: None Past Surgical History: Reports: Hx Cholecystectomy, Hx Orthopedic Surgery - Left anterior cruciate ligament repair - Immunizations Immunizations up to date: Yes Hx Diphtheria, Pertussis, Tetanus Vaccination: Yes - unk Hx Pneumococcal Vaccination: 04/13/14 Review of Systems - Review of Systems Constitutional: No symptoms reported EENT: No symptoms reported Cardiovascular: No symptoms reported Respiratory: No symptoms reported Gastrointestinal: No symptoms reported Genitourinary: No symptoms reported Female Genitourinary: No symptoms reported Musculoskeletal: Back pain, Joint pain - bilateral knee and shoulder pain, Muscle pain, Muscle stiffness Skin: No symptoms reported Hematologic/Lymphatic: No symptoms reported Neurological/Psychological: No symptoms reported -: Yes All other systems reviewed and negative Physical Exam - Vital signs Vitals: Temp Pulse Resp BP Pulse Ox 98.2 F 106 H 16 153/87 H 98 06/10/17 17:17 06/10/17 17:17 06/10/17 17:17 06/10/17 17:17 06/10/17 17:17 Interpretation: Normal - General General appearance: Appears well, Alert - HEENT Head: Normocephalic, Atraumatic Eyes: Normal Pupils: PERRL - Respiratory Respiratory status: No respiratory distress Chest status: Nontender Breath sounds: Normal Chest palpation: Normal - Cardiovascular Rhythm: Regular Heart sounds: Normal auscultation Murmur: No - Abdominal Inspection: Normal Distension: No distension Bowel sounds: Normal Tenderness: Nontender Organomegaly: No organomegaly - Back Back: Normal, Nontender - Extremities General upper extremity: Normal inspection, Normal color, Normal ROM, Normal temperature General lower extremity: Normal inspection, Normal color, Normal ROM, Normal temperature. No: Darius's sign Shoulder: Tender. No: Abrasion, Deformity, Dislocation, Ecchymosis, Instability , Laceration, Limited ROM Knee: Tender, Pain with ROM, Patellar tendon intact, Tender joint line. No: Abrasion, Deformity, Dislocation, Drawer's test instability, Ecchymosis, Instability, Joint effusion, Laceration, Laxity with valgus stress, Laxity with varus stress, Popliteal fossa tender, Unable to bear weight - Neurological Neuro grossly intact: Yes Cognition: Normal Orientation: AAOx4 [place] Coma Scale Eye Opening: Spontaneous [place] Coma Scale Verbal: Oriented [place] Coma Scale Motor: Obeys Commands [place] Coma Scale Total: 15 Speech: Normal Motor strength normal: LUE, RUE, LLE, RLE Sensory: Normal - Psychological Associated symptoms: Normal affect, Normal mood - Skin Skin Temperature: Warm Skin Moisture: Dry Skin Color: Normal Course - Re-evaluation Re-evalutation: 06/10/17 22:33 Discussed x-rays with patient and written report given to patient to follow-up with her primary doctor a CD of the x-rays was also sent the doctor does not have access to records. She was discharged home to follow-up with the primary doctor by telephone tomorrow to schedule a follow-up appointment. Will continue on her home medications for her pain in her shoulders and knees. Patient is denied chest pain throughout her stay here. She states that she is on Ultram and sometimes that does make her dizzy. Encouraged her to take that only when needed to decrease her falling. - Vital Signs Vital signs: Temp Pulse Resp BP Pulse Ox 98.2 F 106 H 28 H 161/105 H 100 06/10/17 17:17 06/10/17 17:17 06/10/17 22:00 06/10/17 20:01 06/10/17 22:00 - Laboratory Result Diagrams: 06/10/17 18:55 06/10/17 18:55 Laboratory results interpreted by me: 06/10/17 06/10/17 18:55 18:55 RDW 16.2 H Lymphocytes % 49.0 H Potassium 3.5 L Glucose 114 H - Diagnostic Test Radiology reviewed: Image reviewed, Reports reviewed Discharge - Discharge Clinical Impression: Bilateral shoulder pain Qualifiers: Chronicity: chronic Qualified Code(s): M25.512 - Pain in left shoulder Bilateral knee pain Qualifiers: Chronicity: chronic Qualified Code(s): M25.561 - Pain in right knee Contusion of knee Qualifiers: Encounter type: initial encounter Laterality: left Qualified Code(s): S80.02XA - Contusion of left knee, initial encounter Low back pain Qualifiers: Chronicity: chronic Back pain laterality: bilateral Sciatica presence: without sciatica Qualified Code(s): M54.5 - Low back pain Condition: Stable Disposition: HOME, SELF-CARE Additional Instructions: You fell tonight and you had pain in both knees both shoulders and low back. You stated that the acute did not have any chest pain at any time while I was caring for you. CONTUSION: Your injury has resulted in a contusion -- a crushing of the deep tissues. No injury to important structures was detected during the physician's exam. Contusions vary in the amount of pain they cause, and in the length of time required for healing. Typically, the area will become bruised, and will remain painful to touch for two or three weeks. However, most patients are back to working and playing within a few days. After the initial period of rest and cold-packs, your symptoms (together with the doctor's recommendations) will determine how rapidly you can get back to full activity. Usually this means "do what feels okay, but don't do things that hurt." If re-examination was recommended, it's important to follow up as instructed. Call the doctor or return any time if pain increases, if swelling becomes severe, if you develop numbness or weakness in an injured extremity, or if any other alarming symptoms occur. LOW BACK PAIN: Three out of every four people will have an episode of disabling back pain during their lifetime. Most commonly the pain is due to straining of the muscles and ligaments in the low back. Usual treatment includes: (1) Rest on a firm surface. Avoid lying on your stomach. (2) Ice pack the painful area. After a few days, gentle heat may be used intermittently to relax the area, or ice packs can be continued. (3) Medication may be needed -- muscle relaxers and antiinflammatory medicines are commonly used. (4) As the back improves, exercises are prescribed to strengthen the back and abdominal muscles. Your doctor will advise you on the proper care for your back at each stage in your recovery. You may be better in a few days -- or healing may take several weeks. If new symptoms of a "herniated disc" (radiation of pain, numbness, or tingling down the back of the leg or weakness in the leg) occur, you should be re-examined. Further testing may be necessary. USE OF TYLENOL (ACETAMINOPHEN): Acetaminophen may be taken for pain relief or fever control. It's much safer than aspirin, offering a wider range of "safe" dosages. It is safe during . Some brand names are Tylenol, Panadol, Datril, Anacin 3, Tempra, and Liquiprin. Acetaminophen can be repeated every four hours. The following are maximum recommended dosages: WEIGHT Dose Drops Elixir Chewable( 80mg) (LBS.) drprs=droppers tsp=teaspoon 6 40 mg 0.4 ml (1/2) 6-11 80 mg 0.8 ml (full) tsp 1 tab 12-16 120 mg 1 1/2 drprs 3/4 tsp 1 1/2 tabs 17-23 160 mg 2 drprs 1 tsp 2 tabs 24-30 240 mg 3 drprs 1 1/2 tsp 3 tabs 30-35 320 mg 2 tsp 4 tabs 36-41 360 mg 2 1/4 tsp 4 1/2 tabs 42-47 400 mg 2 1/2 tsp 5 tabs 48-53 480 mg 3 tsp 6 tabs 54-59 520 mg 3 1/4 tsp 6 1/2 tabs 60-64 560 mg 3 1/2 tsp 7 tabs 65-70 600 mg 3 3/4 tsp 7 1/2 tabs 71-76 640 mg 4 tsp 8 tabs 77-82 720 mg 4 1/2 tsp 9 tabs 83-88 800 mg 5 tsp 10 tabs >89 pounds or adults 650 mg to 900 mg Acetaminophen can be repeated every four hours. Maximum dose not to exceed 4000 mg a day. These maximum recommended dosages are slightly higher than the dosages written on the product container, but these dosages are very safe and below the toxic dosage for acetaminophen. ICE PACKS: Apply ice packs frequently against the painful area. Many different schedules are recommended, such as "20 minutes on, 20 minutes off" or "one hour ice, two hours rest." If you need to work, you may need to go longer between ice treatments. You should plan to have the area ice packed AT LEAST one fourth of the time. The ice should be applied over the wrap, tape, or splint, or over a layer of cloth -- not directly against the skin. Some ice bags have a built-in cloth and can be put directly on the skin. WARM PACKS: After approximately two days, apply gentle heat (such as a heating pad or hot water bottle) for about 20 to 30 minutes about every two hours -- at least four times daily. Warmth and elevation will help you make a more rapid recovery , and will ease the pain considerably. Do not use HOT heat, and never apply heat for longer than 30 minutes. The continuous heat can invisibly damage skin and muscles -- even when no burn is seen on the surface. Damaged muscles can make you MORE sore. Your current medications. You are currently taking tramadol for your pain please be aware that that can increase your risk for fall and take it only when necessary. Your primary doctor in the morning to schedule a follow-up appointment and take a copy of your labs and x-rays results with you to this appointment. You have been given a CD of your x-rays to take with you to your primary doctors appointment. FOLLOW-UP CARE: If you have been referred to a physician for follow-up care, call the physician s office for an appointment as you were instructed or within the next two days. If you experience worsening or a significant change in your symptoms, notify the physician immediately or return to the Emergency Department at any time for re-evaluation. Forms: Elevated Blood Pressure Referrals: ED BEASLEY MD [Primary Care Provider] - Follow up tomorrow
[2017-06-10 19:37] LABS: ANION GAP 14 (5-19); BLOOD UREA NITROGEN 10 mg/dL (7-20); CALCIUM 9.8 mg/dL (8.4-10.2); CARBON DIOXIDE 26 mmol/L (22-30); CHLORIDE 102 mmol/L (98-107); CREATININE RESULT 0.84 mg/dL (0.52-1.25); GLUCOSE 114 mg/dL (75-110); POTASSIUM 3.5 mmol/L (3.6-5.0); SODIUM 142.4 mmol/L (137-145)
--- NOTE | 2017-06-10 19:50 | EKG REPORT ---
SEVERITY:- ABNORMAL ECG - SINUS TACHYCARDIA CONSIDER ANTERIOR INFARCT NONSPECIFIC T ABNORMALITIES, LATERAL LEADS : Confirmed by: Rodolfo Batista 10-Jun-2017 19:50:15
--- NOTE | 2017-06-10 20:33 | RADIOLOGY REPORT (SQ) ---
EXAM DESCRIPTION: KNEE RIGHT 4 VIEWS COMPLETED DATE/TIME: 06/10/2017 8:20 pm REASON FOR STUDY: fall pain COMPARISON: None. NUMBER OF VIEWS: Four views. TECHNIQUE: AP, lateral, and both oblique radiographic images acquired of the right knee. LIMITATIONS: None. FINDINGS: MINERALIZATION: Normal. BONES: No acute fracture or dislocation. No worrisome bone lesions. JOINT: There is some mild decrease in the medial compartment with some minimal associated osteophytic lipping. SOFT TISSUES: No soft tissue swelling. No radio-opaque foreign body. OTHER: No other significant finding. IMPRESSION: Degenerative changes without evidence for fracture. TECHNICAL DOCUMENTATION: JOB ID: [id number] [employer]- All Rights Reserved
--- NOTE | 2017-06-10 20:36 | RADIOLOGY REPORT (SQ) ---
EXAM DESCRIPTION: SHOULDER BILAT 2 OR MORE VIEWS COMPLETED DATE/TIME: 06/10/2017 8:20 pm REASON FOR STUDY: fall pain COMPARISON: None. NUMBER OF VIEWS: Three views of each shoulder TECHNIQUE: Internal rotation, external rotation, and Y view images acquired of the right and left sh oulder. LIMITATIONS: None. FINDINGS: MINERALIZATION: Normal. BONES: No acute fracture or dislocation. No worrisome bone lesions. JOINTS: No dislocation. Degenerative changes are identified. VISUALIZED LUNGS AND RIBS: No pneumothorax. No rib fracture. SOFT TISSUES: No radiopaque foreign body. OTHER: Degenerative changes are identified in both shoulder articulations at the level of the AC join ts. IMPRESSION: Degenerative changes without evidence for fracture TECHNICAL DOCUMENTATION: JOB ID: [id number] [employer]- All Rights Reserved
--- NOTE | 2017-06-10 20:37 | RADIOLOGY REPORT (SQ) ---
EXAM DESCRIPTION: L SPINE WHOLE COMPLETED DATE/TIME: 06/10/2017 8:20 pm REASON FOR STUDY: fall pain COMPARISON: November 2014 NUMBER OF VIEWS: Five views including obliques. TECHNIQUE: AP, lateral, oblique, and sacral radiographic images acquired of the lumbar spine. LIMITATIONS: None. FINDINGS: MINERALIZATION: Normal. SEGMENTATION: Normal. No transitional anatomy. ALIGNMENT: Normal. VERTEBRAE: Maintained height. No fracture or worrisome bone lesion. DISCS: There is almost complete loss of the L4-L5 disc space heights with associated osteophytic rudi ing POSTERIOR ELEMENTS: Pedicles and facets are intact. No pars defect or posterior arch defects. HARDWARE: None in the spine. PARASPINAL SOFT TISSUES: Normal. PELVIS: Intact as visualized. No fractures or worrisome bone lesions. SI joints intact. OTHER: No other significant finding. IMPRESSION: Degenerative changes without evidence for fracture. TECHNICAL DOCUMENTATION: JOB ID: [id number] [employer]- All Rights Reserved
[2017-06-10 22:36] VITALS: BP 161/105
== END 2017-06-10 23:15 | disposition home or self-care (01) ==
LOC: ER 17:13
DX: S80.02XA Contusion of left knee, initial encounter (principal); W19.XXXA Unspecified fall, initial encounter; R00.2 Palpitations; R51 Headache; R07.9 Chest pain, unspecified; R42 Dizziness and giddiness; I10 Essential (primary) hypertension; J44.9 Chronic obstructive pulmonary disease, unspecified; M25.562 Pain in left knee; M25.511 Pain in right shoulder; M25.512 Pain in left shoulder; M25.561 Pain in right knee; M54.5 Low back pain; G89.29 Other chronic pain; Z91.018 Allergy to other foods; Z79.891 Long term (current) use of opiate analgesic
CPT/HCPCS: 36415; 71020; 72110; 80048; 84484; 85025; 93005; 93010; 99284

== ENCOUNTER 2017-07-31 18:54 | Observation (INO) | payer MEDICAID ==
--- NOTE | 2017-07-31 20:31 | ER Document Report ---
ED General - General Mode of Arrival: Ambulatory Information source: Patient TRAVEL OUTSIDE OF THE [place] IN LAST 30 DAYS: No - HPI Similar symptoms previously: Yes Recently seen / treated by doctor: No <DELPHINE ESPINOZA - Last Filed: 08/01/17 03:04> <ELIZABETHJANICEELO - Last Filed: 08/01/17 03:13> - General Chief Complaint: CHF Exacerbation Stated Complaint: SHORTNESS OF BREATH Time Seen by Provider: 07/31/17 19:15 - HPI Notes: Patient is a 57-year-old female presented emergency department with shortness of breath and lower extremity edema. Patient states that she noticed her feet swelling yesterday but they are worse today. Patient states she has shortness of breath with walking and activity and is relieved by resting. Patient also knows that she is having some difficulty swallowing today as well as an occasional cough. Patient denies any chest pain. Patient states that she has a history of CHF, CAD, hypertrophic cardiomyopathy, and has had pericardial effusion in the past. Patient had pericardial effusion that had to be drained x 3 years ago. Patient does not have a sheriff and denies any history of myocardial infarction or cerebrovascular accident. Patient does take 40 mg Lasix x 2 per day. Patient's PCP is Dr. Marquez. (DELPHINE ESPINOZA) - Related Data Allergies/Adverse Reactions: No Known Drug Allergies Allergy (Verified 06/10/17 17:16) tomato [Tomato] Allergy (Verified 06/10/17 17:16) Past Medical History - General Information source: Patient - Social History Smoking Status: Never Smoker Cigarette use (# per day): No Chew tobacco use (# tins/day): No Smoking Education Provided: No Frequency of alcohol use: None Drug Abuse: None Family History: Arthritis, Hypertension, Malignancy, Thyroid Disfunction, Other - Father in an MVC at a young age, mother is 72 and bedridden with arthritis, there is no history of early age onset coronary artery disease. Patient has suicidal ideation: No Patient has homicidal ideation: No - Past Medical History Cardiac Medical History: Reports: Hx Congestive Heart Failure, Hx Coronary Artery Disease, Hx Hypercholesterolemia, Hx Hypertension, Other - Pericardial effusion, hypertrophic cardiomyopathy Pulmonary Medical History: Reports: Hx COPD GI Medical History: Reports: Hx Gastroesophageal Reflux Disease Musculoskeltal Medical History: Reports Hx Arthritis, Reports Hx Musculoskeletal Deformity, Reports Hx Musculoskeletal Trauma Psychiatric Medical History: Reports: Hx Anxiety, Hx Depression Traumatic Medical History: Reports: Hx Fractures Past Surgical History: Reports: Hx Cholecystectomy, Hx Orthopedic Surgery - Left anterior cruciate ligament repair - Immunizations Immunizations up to date: Yes Hx Diphtheria, Pertussis, Tetanus Vaccination: Yes - unk Hx Pneumococcal Vaccination: 04/13/14 <DELPHINE ESPINOZA - Last Filed: 08/01/17 03:04> Review of Systems - Review of Systems Constitutional: No symptoms reported EENT: No symptoms reported Cardiovascular: No symptoms reported. denies: Chest pain - 21 Respiratory: See HPI, Cough, Short of breath, Wheezing Gastrointestinal: No symptoms reported Genitourinary: No symptoms reported Female Genitourinary: No symptoms reported Musculoskeletal: See HPI, Leg swelling, Ankle swelling Skin: No symptoms reported Hematologic/Lymphatic: No symptoms reported Neurological/Psychological: No symptoms reported -: Yes All other systems reviewed and negative <DELPHINE ESPINOZA - Last Filed: 08/01/17 03:04> Physical Exam - Vital signs Interpretation: Hypertensive <OLGADELPHINE - Last Filed: 08/01/17 03:04> <ELO ABREU - Last Filed: 08/01/17 03:13> - Vital signs Vitals: Temp Pulse Resp BP Pulse Ox 98.2 F 93 24 H 189/104 H 95 07/31/17 19:25 07/31/17 19:25 07/31/17 19:25 07/31/17 19:25 07/31/17 19:25 - Notes Notes: GENERAL: Alert, interacts well. Mild distress. HEAD: Normocephalic, atraumatic. EYES: Pupils equal, round, and reactive to light. Extraocular movements intact. ENT: Oral mucosa moist, tongue midline. NECK: Full range of motion. Supple. Trachea midline. LUNGS: Decreased air movement. No wheezes, rales, or rhonchi. Appears moderately short of breath. HEART: Regular rate and rhythm. No murmurs, gallops, or rubs. ABDOMEN: Morbidly obese. Soft, non-tender. Non-distended. Bowel sounds present in all 4 quadrants. EXTREMITIES: Moves all 4 extremities spontaneously. 2+ non-pitting edema to the level of the knees, trace edema at the feet and ankles, radial and dorsalis pedis pulses 2/4 bilaterally. No cyanosis. NEUROLOGICAL: Alert and oriented x3. Normal speech. PSYCH: Normal affect, normal mood. SKIN: Warm, dry, normal turgor. No rashes or lesions noted. (DELPHINE ESPINOZA) Course - Laboratory Result Diagrams: 07/31/17 20:09 07/31/17 20:09 - Consults Dr. Batista Time consulted: 20:46 Dr. Orr Time consulted: 02:10 <OLGADELPHINE - Last Filed: 08/01/17 03:04> - Laboratory Result Diagrams: 07/31/17 20:09 07/31/17 20:09 <ELIZABETHJANICEELO - Last Filed: 08/01/17 03:13> - Re-evaluation Re-evalutation: 08/01/17 03:11 CBC shows anemia with hemoglobin 10.8 but no leukocytosis, CMP grossly unremarkable, does show elevated glucose, cardiac enzymes show elevated CK at 824, elevated CK-MB at 5.38, cardiac enzymes negative, proBNP ordered and found to be unremarkable at 50, chest x-ray does not show any signs of congestive heart failure either nor is her examination consistent with congestive heart failure. Given this I am concerned for the possibility of a pericardial effusion that may be causing her difficulty breathing and decreased exercise tolerance, this was discussed with Dr. Batista the sheriff on-call who agreed to read the echocardiogram. Echocardiogram showed trace pericardial effusion as well as grade 2-3 diastolic dysfunction. This still does not explain the patient's shortness of breath so a CT angiogram was undertaken. Unfortunately her first IV infiltrated so I did have to start a second IV using ultrasound guidance, the ultrasound-guided IV blew on her left arm so that I started a second ultrasound-guided IV in her right arm, this performed well for the CAT scan however the CAT scan had suboptimal timing for assessment of pulmonary embolism and was a nondiagnostic study. Aorta was normal but we are unable to appropriately visualize the pulmonary vessels. Given my continued concern for possible pulmonary embolism as she has a Wells criteria of 7.5 and per criteria of 2 patient cannot be ruled out using a d-dimer. Patient was given a dose of Lovenox and discussed with the hospitalist Dr. Orr who agreed to admit the patient to his service in observation status on the [facility]. I did offer to give the patient a dose of metoprolol her home dose of 100 mg as she has missed her evening dose however he would like to hold off on this medication until he has a urine drug screen back. (ELO ABREU) - Vital Signs Vital signs: Temp Pulse Resp BP Pulse Ox 98.2 F 93 24 H 192/107 H 95 07/31/17 19:25 07/31/17 19:25 08/01/17 02:45 08/01/17 02:31 08/01/17 02:45 - Laboratory Laboratory results interpreted by me: 07/31/17 07/31/17 07/31/17 20:09 20:09 20:09 RBC 3.46 L Hgb 10.8 L Hct 33.1 L RDW 16.6 H Lymphocytes % 49.8 H Glucose 155 H Magnesium AST 53 H Creatine Kinase 824 H CK-MB (CK-2) 5.38 H Urine Ascorbic Acid 07/31/17 07/31/17 20:09 22:45 RBC Hgb Hct RDW Lymphocytes % Glucose Magnesium 1.4 L AST Creatine Kinase CK-MB (CK-2) Urine Ascorbic Acid 40 H - EKG Interpretation by Me Additional EKG results interpreted by me: 08/01/17 03:12 EKG shows sinus rhythm at rate 92, normal axis, normal intervals, no ST segment elevations or depressions, there is poor R-wave progression per my interpretation. (ELO ABREU) - Consults Dr. Batista Reason for consultation: 07/31/17 20:[address] Batista to discuss patient. 07/31/17 23:[address] Batista to notify him about the Echocardiogram being completed. 08/01/17 00:[address] Batista about patient's echocardiogram. He states that there is minimal pericardial effusion and grade II-grade III diastolic dysfunction. ( DELPHINE ESPINOZA) Dr. Orr Reason for consultation: 08/01/17 02:[address] Orr, recorded message states "this user declined the call." 08/01/17 02:[address] Orr to discuss patient for possible admission; he will admit to [facility] observation. He recommends a urine drug screen prior to giving the patient hypertension medications. (DELPHINE ESPINOZA) Discharge <DELPHINE ESPINOZA - Last Filed: 08/01/17 03:04> - [facility] Admitted: [facility] <ELO ABREU - Last Filed: 08/01/17 03:13> - Discharge Clinical Impression: possible pulmonary embolism Chest pain Qualifiers: Chest pain type: precordial pain Qualified Code(s): R07.2 - Precordial pain Dyspnea Qualifiers: Dyspnea type: dyspnea on exertion Qualified Code(s): R06.09 - Other forms of dyspnea Hypertension Qualifiers: Hypertension type: essential hypertension Qualified Code(s): I10 - Essential ( primary) hypertension Condition: Stable Disposition: ADMITTED OBSERVATION Scribe Attestation: 08/01/17 03:12 I personally performed the services described in the documentation, reviewed and edited the documentation which was dictated to the scribe in my presence, and it accurately records my words and actions. (ELO ABREU) Scribe Documentation - Scribe Written by Scribe:: Kuldeep Moore 07/31/17 22:42 acting as scribe for :: Cj <DELPHINE ESPINOZA - Last Filed: 08/01/17 03:04>
[2017-07-31 20:32] LABS: ABSOLUTE LYMPHOCYTES (AUTO) 3.2 10^3/uL (0.5-4.7); ABSOLUTE MONOCYTES (AUTO) 0.4 10^3/uL (0.1-1.4); ABSOLUTE NEUT (AUTO) 2.7 10^3/uL (1.7-8.2); BASOPHILS % (AUTO) 0.6 % (0-2); EOSINOPHILS % (AUTO) 0.2 % (0-6); HEMATOCRIT 33.1 % (36.0-47.0); HEMOGLOBIN 10.8 g/dL (12.0-15.5); HGB HCT DIFFERENCE -0.7; LYMPHOCYTES % (AUTO) 49.8 % (13-45); MEAN CORPUSCULAR HEMOGLOBIN 31.3 pg (27.0-33.4); MEAN CORPUSCULAR HGB CONC 32.7 g/dL (32.0-36.0); MEAN CORPUSCULAR VOLUME 96 fl (80-97); MONOCYTES % (AUTO) 6.6 % (3-13); RED BLOOD COUNT 3.46 10^6/uL (3.72-5.28); RED CELL DISTRIBUTION WIDTH 16.6 % (11.5-14.0); SEGMENTED NEUTROPHILS % (AUTO) 42.8 % (42-78); WHITE BLOOD COUNT 6.4 10^3/uL (4.0-10.5)
[2017-07-31 20:44] LABS: ALANINE AMINOTRANSFERASE 46 U/L (9-52); ALBUMIN 4.2 g/dL (3.5-5.0); ALKALINE PHOSPHATASE 82 U/L (38-126); ANION GAP 16 (5-19); ASPARTATE AMINO TRANSFERASE 53 U/L (14-36); BILIRUBIN,DIRECT 0.4 mg/dL (0.0-0.4); BILIRUBIN,TOTAL 0.4 mg/dL (0.2-1.3); BLOOD UREA NITROGEN 13 mg/dL (7-20); CALCIUM 9.7 mg/dL (8.4-10.2); CARBON DIOXIDE 27 mmol/L (22-30); CHLORIDE 100 mmol/L (98-107); CREATINE KINASE 824 U/L (30-135); CREATININE RESULT 0.86 mg/dL (0.52-1.25); GLUCOSE 155 mg/dL (75-110); POTASSIUM 3.7 mmol/L (3.6-5.0); SODIUM 142.5 mmol/L (137-145); TOTAL PROTEIN 7.2 g/dL (6.3-8.2)
[2017-07-31 20:55] LABS: CREATINE KINASE MB 5.38 ng/mL (<4.55)
[2017-07-31 20:58] LABS: TROPONIN I < 0.012 ng/mL
--- NOTE | 2017-07-31 20:59 | RADIOLOGY REPORT (SQ) ---
EXAM DESCRIPTION: CHEST PA/LAT COMPLETED DATE/TIME: 07/31/2017 8:45 pm REASON FOR STUDY: CHF COMPARISON: 06/10/2017. EXAM PARAMETERS: NUMBER OF VIEWS: two views TECHNIQUE: Digital Frontal and Lateral radiographic views of the chest acquired. RADIATION DOSE: NA LIMITATIONS: none FINDINGS: LUNGS AND PLEURA: No opacities, masses or pneumothorax. No pleural effusion. MEDIASTINUM AND HILAR STRUCTURES: No masses or contour abnormalities. HEART AND VASCULAR STRUCTURES: Heart normal size. No evidence for failure. BONES: No acute findings. HARDWARE: None in the chest. OTHER: No other significant finding. IMPRESSION: NO SIGNIFICANT RADIOGRAPHIC FINDING IN THE CHEST. TECHNICAL DOCUMENTATION: JOB ID: [id number] [employer]- All Rights Reserved
[2017-07-31] MEDS ORDERED: ALBUTEROL SULFATE 0.083% NEB 2.5 MG/3 ML AMPUL NEB ONE (21:35)
[2017-07-31 23:01] LABS: APPEARANCE,URINE SLIGHTLY-CLOUDY; BILIRUBIN,URINE NEGATIVE (NEGATIVE); GLUCOSE, URINE NEGATIVE (NEGATIVE); KETONES,URINE NEGATIVE (NEGATIVE); LEUKOCYTE ESTERASE,URINE NEGATIVE (NEGATIVE); NITRITE,URINE NEGATIVE (NEGATIVE); PROTEIN,URINE NEGATIVE (NEGATIVE); URINE SPECIFIC GRAVITY 1.008; UROBILINOGEN,URINE NEGATIVE mg/dL (<2.0)
--- NOTE | 2017-08-01 01:41 | RADIOLOGY REPORT (SQ) ---
EXAM DESCRIPTION: CTA CHEST COMPLETED DATE/TIME: 08/01/2017 1:17 am REASON FOR STUDY: Shortness of breath, chest pain. COMPARISON: Chest x-ray 07/31/2017, CT angiogram chest 04/08/2014, 10/14/2011. TECHNIQUE: CT scan of the chest performed using helical scanning technique with dynamic intravenous contrast injection. Images reviewed with lung, soft tissue and bone windows. Reconstructed coronal and sagittal MPR images reviewed. Additional 3 dimensional post-processing performed to develop Maximal Intensity Projection images (AK P). All images stored on PACS. All CT scanners at this facility use dose modulation, iterative reconstruction, and/or weight based d osing when appropriate to reduce radiation dose to as low as reasonably achievable (ALARA). [facility]: Dose Right [facility]: CareDose [facility]: Dose Right [facility]: Teradose 4D [facility]: [employer] CONTRAST TYPE AND DOSE: contrast/concentration: Isovue 370.00 mg/ml; Total Contrast Delivered: 100.0 ml; Total Saline Delivered: 76.2 ml RENAL FUNCTION: Creatinine 0.86 RADIATION DOSE: Up-to-date CT equipment and radiation dose reduction techniques were employed. CTDIv ol: 59.2 mGy. DLP: 1873 mGy-cm. . LIMITATIONS: There is suboptimal contrast opacification of the pulmonary arterial tree. FINDINGS: LUNGS AND PLEURA: No consolidation, pleural effusion or pneumothorax. AORTA AND GREAT VESSELS: There is aneurysmal dilation of the ascending thoracic aorta to 4.0 x 4.[address] evidence for acute dissection. HEART: No pericardial effusion. PULMONARY ARTERIES: There is suboptimal contrast opacification of the pulmonary arterial tree. The s tudy is not diagnostic for evaluation of emboli. HILAR AND MEDIASTINAL STRUCTURES: No identified masses or abnormal nodes. HARDWARE: None in the chest. UPPER ABDOMEN: The visualized liver is enlarged and has diffuse decreased attenuation, most consisten t with fatty infiltration. The patient is status post cholecystectomy. BONES: Multilevel degenerative changes in the spine. 3D MIPS: Confirm above findings. IMPRESSION: Suboptimal contrast opacification of the pulmonary arterial tree. The study is not diag nostic for evaluation of pulmonary emboli. 4.0 cm ascending thoracic aortic aneurysm. Hepatomegaly and fatty infiltration of the liver. COMMENT: Quality ID # [id number]: Final reports with documentation of one or more dose reduction techniques (e.g., Automated exposure control, adjustment of the mA and/or kV according to patient size, use of iterative reconstruction technique) TECHNICAL DOCUMENTATION: JOB ID: [id number] [employer]- All Rights Reserved
[2017-08-01] MEDS ORDERED: ENOXAPARIN SODIUM INJ 150 MG/1 ML DISP.SYRIN SUBCUT SCH (02:15)
[2017-08-01] MEDS ORDERED: ENOXAPARIN SODIUM INJ 150 MG/1 ML DISP.SYRIN SUBCUT ONE (02:30)
[2017-08-01 02:41] LABS: ADD ON TESTING BLD IN LAB ACKNOWLEDGE
[2017-08-01 02:56] LABS: MAGNESIUM 1.4 mg/dL (1.6-2.3)
[2017-08-01 03:06] LABS: URINE BARBITURATES SCREEN NEGATIVE; URINE METHADONE SCREEN NEGATIVE; URINE OPIATES LOW NEGATIVE; URINE PHENCYCLIDINE SCREEN NEGATIVE
[2017-08-01] MEDS ORDERED: MAG HYDROX/AL HYDROX/SIMETH SUSP 30 ML UDCUP PO PRN (03:44)
[2017-08-01] MEDS ORDERED: MAGNESIUM HYDROXIDE SUSP 30 ML UDCUP PO PRN (03:44)
[2017-08-01] MEDS ORDERED: PROMETHAZINE HCL 25 MG TABLET PO PRN (03:52)
--- NOTE | 2017-08-01 04:13 | PDOC H&P ---
History of Present Illness Admission Date/PCP: 08/01/17 02:30 ED BEASLEY MD Patient complains of: DYSPNEA ON EXERTION, LEG/ANKLE/FOOT SWELLING History of Present Illness: FREDERICK BACH is a 57 year old morbidly obese -[place] female, with underlying mild anxiety and depression, without suicidal or homicidal ideation, arthritis, mild reflux, several month history of dysphagia, with primary care provider aware, hypertension, COPD, obstructive sleep apnea, and known diastolic congestive heart failure who presents to the emergency room for evaluation of approximately 24 hours so history of dyspnea on exertion with mild swelling of her lower extremities. Patient has been discussed with emergency room physician who evaluated the patient. Shortness of breath is relieved by rest. She has had mild nausea but no vomiting. No fever or chills, diarrhea or dysuria. No chest pain. Mild abdominal discomfort. She describes a 2 month history of a slightly productive cough. Sputum has been a bit more yellow over the last week or so. Denies previous myocardial infarction, pulmonary embolus, DVT, atrial fibrillation or atrial flutter. No recent long trip with prolonged inactivity, or unusual lower extremity tenderness. Review of patient vital signs reveals a very brief approximately 1 minute episode of hypoxia to 88%. Otherwise, oxygen saturations have been quite acceptable on room air, even with ambulation, according to nursing staff. Review of her pulse rate reveals rates have been mostly in the 90 range, other than brief maximum tachycardia of 113 at 9:30 PM on the seventh. Pulses have been 104-108 over the last hour. Patient is been compliant with her medications. No recent change in her medications. History of percutaneous drainage of pericardial effusion [place] 3 years ago. Stat echocardiogram performed this evening and interpreted by Dr. Batista, on-call shell sieve operator revealing diastolic congestive heart failure, and only trace pericardial effusion. Hospitalized on our service March 24, 2016 through the second with final diagnoses including chest pain ruled out for acute coronary syndrome. History and physical and discharge summary have been reviewed. Dictation via voice recognition software. Laboratory results are listed in [employer] and are reviewed. X-ray summary results are listed below, with full report(s) reviewed. CT angiogram of chest nondiagnostic for pulmonary emboli, due to problems with contrast opacification.. EKG reviewed and compared to prior tracing from June 10 of this year. Social history/personal habits: . Has children. Unemployed. Lives alone. No use of alcohol tobacco or illicit drugs. Allergies/adverse reactions are listed in [employer] and are reviewed. Home medications initially autopopulated into [employer] may not accurately reflect patient's true medications, dosages, and/or frequencies. lead maintenance technician to reconcile medications. Unfortunately, patient not certain of all medications/dosages/frequencies. REVIEW OF SYSTEMS: Constitutional: No fever or chills. Eyes: Wears glasses. ENT: See history and present illness. Denies hearing loss. Pulmonary: See history and present illness. Cardiovascular: No current complaints, including chest pain. Gastrointestinal: See history and present illness. Skin: No current complaints, including rashes. Hematologic: Denies easy bruising. Neurologic: No current complaints, including numbness or tingling. Musculoskeletal: Joint pain from arthritis. Psychiatric: Mild anxiety and depression. Denies suicidal or homicidal ideation. Endocrine: No current complaints, including polyuria. Genitourinary: No current complaints, including dysuria. PHYSICAL EXAMINATION: 5 feet 5 inches tall. 140.7 kg. BMI 51.6 kg/m. Blood pressure 173/109. 95% saturation on room air. Pulse 105 and regular. Respirations are 22 and unlabored. Temperature 98.2. Morbidly obese otherwise well-developed -[place] female who appears a number of years younger than her stated age. Pleasant awake alert and cooperative. No obvious distress other than perhaps mildly anxious. Brother Robert is present at her side; patient approves. Female emergency room nursing unit clerk Isaura is present. Skin is warm and dry. No grossly obvious evidence of rash in areas of skin examined. No subcutaneous nodules palpated. ENT: Hearing grossly normal to normal conversation. Tongue midline on protrusion pink and slightly tacky. Eyes: No scleral icterus. Pupils equal and reactive to light at 4 mm. [place] conjunctivae. Neck is supple and nontender to gentle active range of motion and palpation. Midline trachea. No palpable thyroid nodule mass enlargement or tenderness. Lymphatic: No palpable cervical or clavicular nodes. Neck and lymphatic exams limited by patient body habitus. Psychiatric: Reasonable insight into acute and chronic medical issues. Oriented to time location and why here. Lungs: Auscultation reveals clear and equal breath sounds bilaterally. No use of accessory respiratory muscles. Cardiovascular: Heart regular rate and rhythm, without gallop murmur or rub. No carotid or abdominal aortic bruits. Very faint barely detectable basically nonpitting ankle and pedal edema. Palpable dorsalis pedis pulses. Abdomen:soft quite obese nontender with positive bowel sounds. Unable to adequately evaluate abdomen for masses or organomegaly due to body habitus. Extremities: Feet are warm and dry. No calf tenderness to compression. No grossly obvious visual evidence of calf swelling. Gentle manipulation of lower extremities fails to reveal any obvious evidence of injury or instability to knees hips or ankles. Neurologic: Moves upper extremities grossly normally. Patellar reflexes absent. Absent Babinski. Light touch is intact at feet. Dorsiflexion and plantarflexion of feet 5 / 5 and symmetric. Past Medical History Cardiac Medical History: Reports: Congestive Heart Failure - Diastolic, Hypertension, Other - Pericardial effusion, hypertrophic cardiomyopathy Denies: Atrial Fibrillation, Coronary Artery Disease, DVT, Myocardial Infarction, Hyperlipidema, Pulmonary Embolism Pulmonary Medical History: Reports: Chronic Obstructive Pulmonary Disease (COPD) , Sleep Apnea - Uncertain CPAP pressure setting. No home oxygen. Denies: Asthma, Tuberculosis EENT Medical History: Reports: Eyes, Throat - Several month history of mild intermittent dysphasia; PCP aware Denies: Ears Neurological Medical History: Denies: Hemorrhagic CVA, Ischemic CVA, Seizures Endocrine Medical History: Denies: Diabetes Mellitus Type 1, Diabetes Mellitus Type 2, Hyperthyroidism, Hypothyroidism Renal/ Medical History: Reports: None GI Medical History: Reports: Gastroesophageal Reflux Disease Denies: Cirrhosis, Hepatitis, Peptic Ulcer Disease Musculoskeltal Medical History: Reports: Arthritis Skin Medical History: Reports: None Psychiatric Medical History: Reports: Depression, General Anxiety Disorder Denies: Alcohol Dependency, Substance Abuse, Tobacco Dependency Infectious Medical History: Denies: Hepatitis B, Hepatitis C Past Surgical History Past Surgical History: Reports: Cholecystectomy, Orthopedic Surgery - Left anterior cruciate ligament repair, Other - Pericardiocentesis 3 years ago in [place] to drain an effusion. Social History Information Source: Patient, Emergency Med Personnel, [facility] Records Lives with: Alone Smoking Status: Unknown if Ever Smoked Frequency of Alcohol Use: None Hx Recreational Drug Use: No Drugs: None Hx Prescription Drug Abuse: No - Advance Directive Resuscitation Status: Full Code Surrogate healthcare decision maker:: Brother Robert De Luna or daughter Briseyda Bach Family History Family History: Arthritis, Hypertension, Malignancy, Thyroid Disfunction Parental Family History Reviewed: Yes - Father killed in motor vehicle accident ; mother of heart failure. Children Family History Reviewed: Yes - Healthy Sibling(s) Family History Reviewed.: Yes - Healthy Medication/Allergy Home Medications: Alprazolam [Xanax] 1 mg PO QID 08/01/17 Amitriptyline HCl [Elavil 100 mg Tablet] 150 mg PO QHS 08/01/17 Buspirone HCl [Buspar 5 mg Tablet] 5 mg PO TID 08/01/17 Cyclobenzaprine HCl [Flexeril 5 mg Tablet] 5 mg PO Q8 08/01/17 Imipramine HCl [Tofranil] 50 mg PO TID 08/01/17 Meloxicam [Mobic 7.5 mg Tablet] 7.5 mg PO BID 08/01/17 Tramadol HCl [Ultram 50 mg Tablet] 50 mg PO TID 08/01/17 Amlodipine Besylate [Norvasc 5 mg Tablet] 5 mg PO DAILY #30 tablet 08/03/17 Furosemide [Lasix 40 mg Tablet] 40 mg PO BID #60 tablet 08/03/17 Lisinopril [Prinivil 10 mg Tablet] 20 mg PO DAILY #30 tablet 08/03/17 Metoprolol Succinate [Toprol Xl 50 mg Tab.sr] 50 mg PO Q12 #60 tab.sr.24h Allergies/Adverse Reactions: No Known Drug Allergies Allergy (Verified 06/10/17 17:16) tomato [Tomato] Allergy (Verified 06/10/17 17:16) Physical Exam Vital Signs: Temp Pulse Resp BP Pulse Ox 98.2 F 93 19 150/87 H 95 07/31/17 19:25 07/31/17 19:25 08/01/17 03:45 08/01/17 03:30 08/01/17 03:45 Results Impressions: Chest X-Ray 07/31/17 00:00 IMPRESSION: NO SIGNIFICANT RADIOGRAPHIC FINDING IN THE CHEST. Chest/Abdomen CTA 08/01/17 00:00 IMPRESSION: Suboptimal contrast opacification of the pulmonary arterial tree. The study is not diagnostic for evaluation of pulmonary emboli. 4.0 cm ascending thoracic aortic aneurysm. Hepatomegaly and fatty infiltration of the liver. Assessment & Plan - Diagnosis (1) Anemia Qualifiers: Anemia type: unspecified type Qualified Code(s): D64.9 - Anemia, unspecified Is this a current diagnosis for this admission?: Yes Plan: Follow-up CBC with differential. No need for transfusion at present time. (2) Anticoagulated Is this a current diagnosis for this admission?: Yes Plan: Systemic Lovenox administered by emergency room physician. Will hold further doses pending d-dimer results. (3) MORA (dyspnea on exertion) Is this a current diagnosis for this admission?: Yes Plan: Suspect due to combination of mild heart failure and COPD exacerbation. Other than momentary 88% saturation, saturations have been quite acceptable on room air, even with ambulation, per nursing staff. D-dimer. I have strongly encouraged patient not to get out of bed without notifying staff , to avoid a fall with injury. Knee high SCDs for DVT prophylaxis; with patient having received systemic Lovenox, will hold prophylactic dose at this time. Impression and plans were discussed with patient and brother, both of whom concur. Time spent in evaluation and management of patient: 73 minutes. (4) Elevated LFTs Is this a current diagnosis for this admission?: Yes Plan: Suspect due to her underlying diastolic heart failure, combined with fatty liver noted on CT scan, but will repeat chemistry. (5) Hypertensive urgency Is this a current diagnosis for this admission?: Yes Plan: Gradual blood pressure reduction. Parameters in chart. (6) Hypomagnesemia Is this a current diagnosis for this admission?: Yes Plan: Magnesium supplement. (7) Peripheral edema Is this a current diagnosis for this admission?: Yes (8) Thoracic ascending aortic aneurysm Is this a current diagnosis for this admission?: Yes Plan: Follow-up by primary care physician. (9) Diastolic CHF Qualifiers: Congestive heart failure chronicity: chronic Qualified Code(s): I50.32 - Chronic diastolic (congestive) heart failure Is this a current diagnosis for this admission?: Yes Plan: Resume home medications as appropriate once these have been determined and reviewed. (10) history pericardial effusion Is this a current diagnosis for this admission?: Yes (11) TAMIKA (obstructive sleep apnea) Is this a current diagnosis for this admission?: Yes Plan: CPAP nightly - Time Time Spent: Greater than 70 Minutes Anticipated discharge: Home Within: within 24 hours
[2017-08-01] MEDS: ENALAPRILAT DIHYDRATE INJ/PF 1.25 MG/1 ML SDV IV PRN ×2 (04:34→20:24)
[2017-08-01] MEDS: MAGNESIUM SULFATE/D5W 1 GM/100 ML RTUPB IV SCH ×3 (04:35→06:49)
[2017-08-01] MEDS: ACETAMINOPHEN 325 MG TABLET PO PRN (04:35)
[2017-08-01 04:43] LABS: PROTHROMBIN TIME 13.2 SEC (11.4-15.4)
[2017-08-01 04:44] LABS: PARTIAL THROMBOPLASTIN TIME 34.7 SEC (23.5-35.8)
[2017-08-01 04:46] LABS: D-DIMER 0.63 ug/mL (0.00-0.50)
[2017-08-01 04:52] LABS: CHOLESTEROL 175.15 mg/dL (0-200); Direct HDL 48 mg/dL (>40); TRIGLYCERIDES 272 mg/dL (<150)
[2017-08-01 05:03] LABS: DIRECT LDL 83 mg/dL (<100)
[2017-08-01 05:05] LABS: VLDL CHOLESTEROL 54.4 mg/dL (10-31)
--- NOTE | 2017-08-01 07:55 | EKG REPORT ---
SEVERITY:- BORDERLINE ECG - SINUS RHYTHM BORDERLINE R WAVE PROGRESSION, ANTERIOR LEADS : Confirmed by: Dominic Collins MD 01-Aug-2017 07:54:11
--- NOTE | 2017-08-01 09:22 | RADIOLOGY REPORT (SQ) ---
EXAM DESCRIPTION: NM LUNG VENT/PERF SCAN COMPLETED DATE/TIME: 08/01/2017 8:06 am REASON FOR STUDY: elev d dimer COMPARISON: Chest x-ray dated 07/31/2017. CT dated 08/01/2017. RADIONUCLIDE AND DOSE: 5.22 millicuries TC-99m MAA Intravenous 31.3 millicuries TC-99m DTPA Inhaled aerosol TECHNIQUE: AP and lateral views of the lungs acquired post ventilation of DTPA aerosol. Six views o f the lungs acquired following injection of MAA. LIMITATIONS: Limited positioning due to the patient's body habitus. FINDINGS: VENTILATION: Symmetric and homogeneous distribution of DTPA aerosol during ventilatory pha se. No significant areas of photopenia. PERFUSION: Perfusion images with normal homogenous activity and no wedge-shaped or segmental defects. No ventilation-perfusion mismatches. OTHER: No other significant finding. IMPRESSION: NORMAL VENTILATION-PERFUSION LUNG SCAN. NEGATIVE FOR PULMONARY EMBOLI. TECHNICAL DOCUMENTATION: JOB ID: [id number] [employer]- All Rights Reserved
[2017-08-01] MEDS: DOCUSATE SODIUM 100 MG CAPSULE PO SCH (09:47)
[2017-08-01 11:29] LABS: ALANINE AMINOTRANSFERASE 41 U/L (9-52); ALBUMIN 3.8 g/dL (3.5-5.0); ALKALINE PHOSPHATASE 78 U/L (38-126); ASPARTATE AMINO TRANSFERASE 41 U/L (14-36); BILIRUBIN,DIRECT 0.3 mg/dL (0.0-0.4); BILIRUBIN,TOTAL 0.3 mg/dL (0.2-1.3); TOTAL PROTEIN 6.4 g/dL (6.3-8.2)
--- NOTE | 2017-08-01 13:14 | EKG REPORT ---
SEVERITY:- BORDERLINE ECG - SINUS RHYTHM BORDERLINE R WAVE PROGRESSION, ANTERIOR LEADS BORDERLINE PROLONGED QT INTERVAL : Confirmed by: Dominic Collins MD 01-Aug-2017 13:13:14
[2017-08-01] MEDS ORDERED: HYDRALAZINE HCL INJ/PF 20 MG/1 ML SDV IV PRN (17:58)
--- NOTE | 2017-08-01 18:05 | PDOC PROGRESS REPORT ---
Subjective Progress Note for:: 08/01/17 Subjective:: Patient was seen at the bedside today this is a follow-up visit for hypertensive urgency. The patient is worried about her V/Q scan results. She has been informed that they were negative. When asked if she feels like herself the patient says no. When asked questions she seems to take a considerable amount of time to think and often looks as though she is staring into space or in a fog. She states that she is just worried about the VQ scan. We did have a detailed conversation about the likelihood of underlying congestive heart failure and management of her hypertension. She states that her blood pressure medicines were recently discontinued and that others was started but that she is not certain as to which ones they were. Patient states that she feels short of breath with walking and sometimes even at rest. She does not know when her last echocardiogram was. Physical Exam Vital Signs: Temp Pulse Resp BP Pulse Ox 98.6 F 102 H 18 176/97 H 98 08/01/17 04:23 08/01/17 14:00 08/01/17 04:23 08/01/17 05:50 08/01/17 04:23 Intake & Output 07/31/17 08/01/17 08/02/17 06:59 06:59 06:59 Intake Total 680 Balance 680 Weight 139.9 kg GENERAL: This is a well-developed well-nourished morbidly obese - [place] female resting on the side of her bed currently in no acute distress. HEART: Regular rate and rhythm. No murmurs, rubs or gallops. LUNGS: Clear to auscultation bilaterally with equal rise and fall of the chest. ABDOMEN: Soft, nontender, nondistended with normoactive bowel sounds EXTREMETIES: No clubbing, cyanosis. 1+ lower extremity edema. 1+ peripheral pulses bilaterally. NEURO: Awake, alert and oriented 3. Cranial nerves II through XII are grossly intact. PSYCH: Patient has an odd affect and seems to be in a fog. Results Laboratory Results: 08/01/17 08/01/17 04:31 10:04 Total Bilirubin 0.3 AST 41 H ALT 41 Alkaline Phosphatase 78 Total Protein 6.4 Albumin 3.8 Triglycerides 272 H Cholesterol 175.15 LDL Cholesterol Direct 83 VLDL Cholesterol 54.4 H HDL Cholesterol 48 08/01/17 08/01/17 04:31 10:04 Troponin I < 0.012 < 0.012 Impressions: Chest X-Ray 07/31/17 00:00 IMPRESSION: NO SIGNIFICANT RADIOGRAPHIC FINDING IN THE CHEST. Chest/Abdomen CTA 08/01/17 00:00 IMPRESSION: Suboptimal contrast opacification of the pulmonary arterial tree. The study is not diagnostic for evaluation of pulmonary emboli. 4.0 cm ascending thoracic aortic aneurysm. Hepatomegaly and fatty infiltration of the liver. Lung Scan-VQ NM 08/01/17 04:50 IMPRESSION: NORMAL VENTILATION-PERFUSION LUNG SCAN. NEGATIVE FOR PULMONARY EMBOLI. Assessment & Plan - Diagnosis (1) Hypertensive urgency Is this a current diagnosis for this admission?: Yes Plan: The patient is not currently on any blood pressure medications. She has as needed enalaprilat ordered. She was on metoprolol as a home medication but apparently this is been discontinued - at least according to the patient. I am going to start an AINSLEY inhibitor as well as metoprolol again. Will defer the addition of a calcium channel riley secondary to lower extremity swelling at the moment. However this can be considered in the future. (2) Diastolic CHF Qualifiers: Congestive heart failure chronicity: chronic Qualified Code(s): I50.32 - Chronic diastolic (congestive) heart failure Is this a current diagnosis for this admission?: Yes Plan: Patient states that she is on Lasix at home. She does not know when her last echocardiogram was done. In fact she had an echocardiogram done yesterday. The report is pending. Her BNP was within the normal range on admission. At this point she does not appear to be in acute diastolic failure. She will continue Lasix 80 mg daily. (3) Morbid obesity with BMI of 50.0-59.9, adult Plan: Weight loss through dietary changes and exercise is recommended. (4) TAMIKA (obstructive sleep apnea) Is this a current diagnosis for this admission?: Yes (5) Anemia Qualifiers: Anemia type: unspecified type Qualified Code(s): D64.9 - Anemia, unspecified Is this a current diagnosis for this admission?: Yes Plan: Patient's anemia is stable but I do note that it is down from May. Will check anemia panel. (6) MORA (dyspnea on exertion) Is this a current diagnosis for this admission?: Yes Plan: Patient states that she is dyspneic when walking. And sometimes even at rest. Here at the bedside her oxygen saturations have been normal. In review of her stay she has had no episodes of hypoxemia. We will continue to monitor. (7) Hypomagnesemia Is this a current diagnosis for this admission?: Yes Plan: Supplemented. Will repeat level in the morning. (8) Pulmonary embolus Plan: This diagnosis has been ruled out with a negative VQ scan and indeterminate CT scan. I am going to discontinue the patient's therapeutic doses of Lovenox. (9) Fatty liver disease, nonalcoholic Plan: This is likely secondary to the patient's underlying obesity. Follow-up with outpatient physician. LFTs are marginally elevated at best. (10) Thoracic ascending aortic aneurysm Is this a current diagnosis for this admission?: Yes Plan: Follow up with outpatient physician. Currently her aneurysm measures 4 cm. - Time Time Spent with patient: 25-34 minutes - Inpatient Certification Medical Necessity: Need Close Monitoring Due to Risk of Patient Decompensation - Plan Summary Plan Summary: I anticipate discharge within the next 24-48 hours.
[2017-08-01] MEDS: METOPROLOL SUCCINATE 25 MG TAB.SR.24H PO SCH (21:32)
[2017-08-02] MEDS: METOPROLOL TARTRATE PF/INJ 5 MG/5 ML SDV IV PRN (02:12)
[2017-08-02] MEDS ORDERED: METOPROLOL TARTRATE PF/INJ 5 MG/5 ML SDV IV ONE (03:45)
[2017-08-02] MEDS: ENALAPRILAT DIHYDRATE INJ/PF 1.25 MG/1 ML SDV IV PRN (04:20)
[2017-08-02] MEDS ORDERED: ENALAPRILAT DIHYDRATE INJ/PF 1.25 MG/1 ML SDV IV ONE (06:00)
[2017-08-02 06:55] LABS: ABSOLUTE LYMPHOCYTES (AUTO) 2.3 10^3/uL (0.5-4.7); ABSOLUTE MONOCYTES (AUTO) 0.4 10^3/uL (0.1-1.4); ABSOLUTE NEUT (AUTO) 2.5 10^3/uL (1.7-8.2); BASOPHILS % (AUTO) 0.4 % (0-2); EOSINOPHILS % (AUTO) 0.2 % (0-6); HEMATOCRIT 32.5 % (36.0-47.0); HEMOGLOBIN 10.7 g/dL (12.0-15.5); HGB HCT DIFFERENCE -0.4; LYMPHOCYTES % (AUTO) 43.3 % (13-45); MEAN CORPUSCULAR HEMOGLOBIN 31.4 pg (27.0-33.4); MEAN CORPUSCULAR HGB CONC 32.9 g/dL (32.0-36.0); MEAN CORPUSCULAR VOLUME 95 fl (80-97); MONOCYTES % (AUTO) 8.5 % (3-13); RED BLOOD COUNT 3.41 10^6/uL (3.72-5.28); SEGMENTED NEUTROPHILS % (AUTO) 47.6 % (42-78); WHITE BLOOD COUNT 5.3 10^3/uL (4.0-10.5)
[2017-08-02 07:11] LABS: ANION GAP 8 (5-19); BLOOD UREA NITROGEN 12 mg/dL (7-20); CALCIUM 9.6 mg/dL (8.4-10.2); CARBON DIOXIDE 32 mmol/L (22-30); CHLORIDE 102 mmol/L (98-107); CREATININE RESULT 0.81 mg/dL (0.52-1.25); GLUCOSE 136 mg/dL (75-110); MAGNESIUM 1.9 mg/dL (1.6-2.3); POTASSIUM 3.7 mmol/L (3.6-5.0); SODIUM 141.9 mmol/L (137-145)
[2017-08-02] MEDS: METOPROLOL SUCCINATE 25 MG TAB.SR.24H PO SCH (09:17)
[2017-08-02] MEDS: DOCUSATE SODIUM 100 MG CAPSULE PO SCH (09:18)
[2017-08-02] MEDS: LISINOPRIL 10 MG TABLET PO SCH (09:18)
[2017-08-02] MEDS ORDERED: METOPROLOL SUCCINATE 50 MG TAB.SR.24H PO SCH (10:00)
[2017-08-02] MEDS ORDERED: METOPROLOL SUCCINATE 25 MG TAB.SR.24H PO SCH (10:14)
[2017-08-02] MEDS ORDERED: METOPROLOL SUCCINATE 25 MG TAB.SR.24H PO ONE (11:00)
[2017-08-02] MEDS: ACETAMINOPHEN 325 MG TABLET PO PRN (11:18)
--- NOTE | 2017-08-02 15:24 | PDOC PROGRESS REPORT ---
Subjective Progress Note for:: 08/02/17 Subjective:: Patient was seen at the bedside today this is a follow-up visit for hypertensive urgency. Overnight, the patient's blood pressure went up to 200 and she became tachycardic at 130. Patient states that she feels short of breath with walking and sometimes even at rest. Physical Exam Vital Signs: Temp Pulse Resp BP Pulse Ox 98.5 F 91 16 162/102 H 98 08/02/17 11:13 08/02/17 14:00 08/02/17 11:13 08/02/17 11:13 08/02/17 11:13 Intake & Output 08/01/17 08/02/17 08/03/17 06:59 06:59 06:59 Intake Total 680 1950 700 Balance 680 1950 700 Weight 139.9 kg 142 kg GENERAL: This is a well-developed well-nourished morbidly obese - [place] female resting in bed currently in no acute distress. HEART: Regular rate and rhythm. No murmurs, rubs or gallops. LUNGS: Clear to auscultation bilaterally with equal rise and fall of the chest. ABDOMEN: Soft, nontender, nondistended with normoactive bowel sounds EXTREMETIES: No clubbing, cyanosis. 1+ lower extremity edema. 1+ peripheral pulses bilaterally. NEURO: Awake, alert and oriented 3. Cranial nerves II through XII are grossly intact. Results Laboratory Results: 08/02/17 06:42 08/02/17 06:42 08/02/17 08/02/17 06:42 06:42 WBC 5.3 RBC 3.41 L Hgb 10.7 L Hct 32.5 L MCV 95 MCH 31.4 MCHC 32.9 RDW 16.0 H Plt Count 240 Seg Neutrophils % 47.6 Lymphocytes % 43.3 Monocytes % 8.5 Eosinophils % 0.2 Basophils % 0.4 Absolute Neutrophils 2.5 Absolute Lymphocytes 2.3 Absolute Monocytes 0.4 Absolute Eosinophils 0.0 Absolute Basophils 0.0 Sodium 141.9 Potassium 3.7 Chloride 102 Carbon Dioxide 32 H Anion Gap 8 BUN 12 Creatinine 0.81 Est GFR ( Amer) > 60 Est GFR (Non-Af Amer) > 60 Glucose 136 H Calcium 9.6 Magnesium 1.9 08/01/17 08/01/17 04:31 10:04 Troponin I < 0.012 < 0.012 Impressions: Chest X-Ray 07/31/17 00:00 IMPRESSION: NO SIGNIFICANT RADIOGRAPHIC FINDING IN THE CHEST. Chest/Abdomen CTA 08/01/17 00:00 IMPRESSION: Suboptimal contrast opacification of the pulmonary arterial tree. The study is not diagnostic for evaluation of pulmonary emboli. 4.0 cm ascending thoracic aortic aneurysm. Hepatomegaly and fatty infiltration of the liver. Lung Scan-VQ NM 08/01/17 04:50 IMPRESSION: NORMAL VENTILATION-PERFUSION LUNG SCAN. NEGATIVE FOR PULMONARY EMBOLI. Assessment & Plan - Diagnosis (1) Hypertensive urgency Is this a current diagnosis for this admission?: Yes Plan: Increase metoprolol to 50 bid. Continue lisinopril. She has as needed enalaprilat ordered. (2) Diastolic CHF Qualifiers: Congestive heart failure chronicity: chronic Qualified Code(s): I50.32 - Chronic diastolic (congestive) heart failure Is this a current diagnosis for this admission?: Yes Plan: Patient states that she is on Lasix at home. She does not know when her last echocardiogram was done. In fact she had an echocardiogram done yesterday. The report is pending. Her BNP was within the normal range on admission. At this point she does not appear to be in acute diastolic failure. Continue lasix at 40 bid. (3) Morbid obesity with BMI of 50.0-59.9, adult Plan: Weight loss through dietary changes and exercise is recommended. (4) TAMIKA (obstructive sleep apnea) Is this a current diagnosis for this admission?: Yes (5) Anemia Qualifiers: Anemia type: unspecified type Qualified Code(s): D64.9 - Anemia, unspecified Is this a current diagnosis for this admission?: Yes Plan: Patient's anemia is stable but I do note that it is down from May. Will check anemia panel. (6) MORA (dyspnea on exertion) Is this a current diagnosis for this admission?: Yes Plan: Patient states that she is dyspneic when walking. And sometimes even at rest. Here at the bedside her oxygen saturations have been normal. In review of her stay she has had no episodes of hypoxemia. We will continue to monitor. (7) Hypomagnesemia Is this a current diagnosis for this admission?: Yes Plan: Supplemented. Will repeat level in the morning. (8) Pulmonary embolus Plan: This diagnosis has been ruled out with a negative VQ scan and indeterminate CT scan. I am going to discontinue the patient's therapeutic doses of Lovenox. (9) Fatty liver disease, nonalcoholic Plan: This is likely secondary to the patient's underlying obesity. Follow-up with outpatient physician. LFTs are marginally elevated at best. (10) Thoracic ascending aortic aneurysm Is this a current diagnosis for this admission?: Yes Plan: Follow up with outpatient physician. Currently her aneurysm measures 4 cm. (11) Anxiety and depression Plan: Continue buspirone and Xanax. - Time Time Spent with patient: 25-34 minutes - Inpatient Certification Medical Necessity: Significant Comorbidiites Make Outpatient Treatment Too Risky - Plan Summary Plan Summary: The patient is currently in observation status. She will be changed to inpatient status secondary to hypertensive urgency and continued elevated blood pressures above 200 as well as tachycardia. We will use this additional hospital stay to adjust her medications and make sure that she is stable prior to being discharged. Without further care she will likely bounce back to the hospital.
[2017-08-02] MEDS: MELOXICAM 7.5 MG TABLET PO SCH (17:13)
[2017-08-02] MEDS: ALPRAZOLAM 0.5 MG TABLET PO SCH (17:15)
[2017-08-02] MEDS ORDERED: (PENDING PHARMACY ID) (Buspirone Hcl [Buspar 5 Mg Tablet] 5 MG) PO SCH (18:00)
[2017-08-02] MEDS: TRAMADOL HCL 50 MG TABLET PO SCH (21:53)
[2017-08-02] MEDS: METOPROLOL SUCCINATE 50 MG TAB.SR.24H PO SCH (21:53)
[2017-08-02] MEDS: AMITRIPTYLINE HCL 75 MG TABLET PO SCH (21:54)
[2017-08-02] MEDS: BUSPIRONE HCL 10 MG TABLET PO SCH (21:54)
[2017-08-02] MEDS ORDERED: AMITRIPTYLINE HCL 150 MG PO SCH (22:00)
[2017-08-03] MEDS: METOPROLOL TARTRATE PF/INJ 5 MG/5 ML SDV IV PRN (01:22)
[2017-08-03] MEDS: ALPRAZOLAM 0.5 MG TABLET PO SCH ×4 (01:28→17:24)
[2017-08-03] MEDS: ENALAPRILAT DIHYDRATE INJ/PF 1.25 MG/1 ML SDV IV PRN ×2 (03:55→16:49)
[2017-08-03] MEDS: BUSPIRONE HCL 10 MG TABLET PO SCH ×3 (05:31→21:48)
[2017-08-03] MEDS: TRAMADOL HCL 50 MG TABLET PO SCH ×3 (05:32→21:49)
[2017-08-03] MEDS: ACETAMINOPHEN 325 MG TABLET PO PRN (07:50)
[2017-08-03] MEDS: AMLODIPINE BESYLATE 5 MG TABLET PO SCH (09:12)
[2017-08-03] MEDS: METOPROLOL SUCCINATE 50 MG TAB.SR.24H PO SCH ×2 (09:13→21:47)
[2017-08-03] MEDS: DOCUSATE SODIUM 100 MG CAPSULE PO SCH (09:13)
[2017-08-03] MEDS: LISINOPRIL 10 MG TABLET PO SCH (09:13)
[2017-08-03] MEDS: MELOXICAM 7.5 MG TABLET PO SCH ×2 (09:46→17:24)
--- NOTE | 2017-08-03 15:32 | PDOC DISCHARGE SUMMARY ---
General - Admit/Disc Date/PCP Admission Date/Primary Care Provider: 08/01/17 03:45 ED BEASLEY MD Discharge Date: 08/03/17 - Discharge Diagnosis (1) Hypertensive urgency Is this a current diagnosis for this admission?: Yes Summary: Blood pressures under better control at this time. Continue Norvasc, metoprolol , Lasix, lisinopril. Follow-up with PCP next week. (2) Diastolic CHF Is this a current diagnosis for this admission?: Yes Summary: Continue metoprolol and Lasix. The patient's BNP was normal. This was not an acute exacerbation of her heart failure. (3) Morbid obesity with BMI of 50.0-59.9, adult Summary: As weight loss through dietary changes and exercise (4) TAMIKA (obstructive sleep apnea) Is this a current diagnosis for this admission?: Yes Summary: continue CPAP at home. (5) Anemia Is this a current diagnosis for this admission?: Yes Summary: Stable.This is likely of chronic disease. (6) MORA (dyspnea on exertion) Is this a current diagnosis for this admission?: Yes Summary: Improved. Likely related to the patient's weight and uncontrolled blood pressure. (7) Hypomagnesemia Is this a current diagnosis for this admission?: Yes Summary: Resolved. (8) Pulmonary embolus Summary: This is been effectively ruled out with a negative VQ scan and CT (9) Fatty liver disease, nonalcoholic Summary: Stable. Continue home medications and follow with PCP (10) Thoracic ascending aortic aneurysm Is this a current diagnosis for this admission?: Yes Summary: Follow with PCP as an outpatient. (11) Anxiety and depression Summary: Continue home medications. - Additional Information Resuscitation Status: Full Code Discharge Diet: Cardiac Discharge Activity: Activity As Tolerated, Balance Activity w/Rest, Weigh Daily Home Medications: Alprazolam [Xanax] 1 mg PO QID 08/01/17 Amitriptyline HCl [Elavil 100 mg Tablet] 150 mg PO QHS 08/01/17 Buspirone HCl [Buspar 5 mg Tablet] 5 mg PO TID 08/01/17 Cyclobenzaprine HCl [Flexeril 5 mg Tablet] 5 mg PO Q8 08/01/17 Imipramine HCl [Tofranil] 50 mg PO TID 08/01/17 Meloxicam [Mobic 7.5 mg Tablet] 7.5 mg PO BID 08/01/17 Tramadol HCl [Ultram 50 mg Tablet] 50 mg PO TID 08/01/17 Amlodipine Besylate [Norvasc 5 mg Tablet] 5 mg PO DAILY #30 tablet 08/03/17 Furosemide [Lasix 40 mg Tablet] 40 mg PO BID #60 tablet 08/03/17 Lisinopril [Prinivil 10 mg Tablet] 20 mg PO DAILY #30 tablet 08/03/17 Metoprolol Succinate [Toprol Xl 50 mg Tab.sr] 50 mg PO Q12 #60 tab.sr.24h History of Present Illness History of Present Illness: HPI as per admitting physician: History of Present Illness Admission Date/PCP: 08/01/17 02:30 ED BEASLEY MD Patient complains of: DYSPNEA ON EXERTION, LEG/ANKLE/FOOT SWELLING History of Present Illness: FREDERICK BACH is a 57 year old morbidly obese -Somali female, with underlying mild anxiety and depression, without suicidal or homicidal ideation, arthritis, mild reflux, several month history of dysphagia, with primary care provider aware, hypertension, COPD, obstructive sleep apnea, and known diastolic congestive heart failure who presents to the emergency room for evaluation of approximately 24 hours so history of dyspnea on exertion with mild swelling of her lower extremities. Patient has been discussed with emergency room physician who evaluated the patient. Shortness of breath is relieved by rest. She has had mild nausea but no vomiting. No fever or chills, diarrhea or dysuria. No chest pain. Mild abdominal discomfort. She describes a 2 month history of a slightly productive cough. Sputum has been a bit more yellow over the last week or so. Denies previous myocardial infarction, pulmonary embolus, DVT, atrial fibrillation or atrial flutter. No recent long trip with prolonged inactivity, or unusual lower extremity tenderness. Review of patient vital signs reveals a very brief approximately 1 minute episode of hypoxia to 88%. Otherwise, oxygen saturations have been quite acceptable on room air, even with ambulation, according to nursing staff. Review of her pulse rate reveals rates have been mostly in the 90 range, other than brief maximum tachycardia of 113 at 9:30 PM on the seventh. Pulses have been 104-108 over the last hour. Patient is been compliant with her medications. No recent change in her medications. History of percutaneous drainage of pericardial effusion [place] 3 years ago. Stat echocardiogram performed this evening and interpreted by Dr. Batista, on-call stock worker and deliverer revealing diastolic congestive heart failure, and only trace pericardial effusion. Hospitalized on our service March 24, 2016 through the second with final diagnoses including chest pain ruled out for acute coronary syndrome. History and physical and discharge summary have been reviewed. Hospital Course Hospital Course: Patient was admitted to the hospital. Her blood pressures were managed with use of metoprolol. Unfortunately this was not enough to get her hypertension under control. She had some blood pressures as high as 200. Norvasc as well as lisinopril were subsequently added on to her regimen. The patient had better over blood pressure prior to being discharged with blood pressures between 12/24/1959. She had a cardiac echo done while she was here as well. It showed a normal LV function with grade 2 out of 6 diastolic dysfunction wall motion could not be accurately commented on. There was no valvular stenosis or regurgitation noted. Small to minimal pericardial effusion. The patient also underwent a VQ scan which was negative. She has a history of TAMIKA and was maintained here on CPAP. At this point she is stable and fit for discharge and appropriate follow-up for her hypertension. Physical Exam Vital Signs: Temp Pulse Resp BP Pulse Ox 97.8 F 86 18 166/90 H 97 08/03/17 11:40 08/03/17 14:00 08/03/17 11:40 08/03/17 11:40 08/03/17 11:40 Intake & Output 08/02/17 08/03/17 08/04/17 06:59 06:59 06:59 Intake Total 1950 3905 650 Balance 1950 3905 650 Weight 142 kg 141.1 kg GENERAL: This is a well-developed well-nourished morbidly obese - Somali female resting in bed currently in no acute distress. HEART: Regular rate and rhythm. No murmurs, rubs or gallops. LUNGS: Clear to auscultation bilaterally with equal rise and fall of the chest. ABDOMEN: Soft, nontender, nondistended with normoactive bowel sounds EXTREMETIES: No clubbing, cyanosis. 1+ lower extremity edema. 1+ peripheral pulses bilaterally. NEURO: Awake, alert and oriented 3. Cranial nerves II through XII are grossly intact. Results Laboratory Results: 08/02/17 06:42 08/02/17 06:42 08/01/17 08/01/17 04:31 10:04 Troponin I < 0.012 < 0.012 Impressions: Chest X-Ray 07/31/17 00:00 IMPRESSION: NO SIGNIFICANT RADIOGRAPHIC FINDING IN THE CHEST. Chest/Abdomen CTA 08/01/17 00:00 IMPRESSION: Suboptimal contrast opacification of the pulmonary arterial tree. The study is not diagnostic for evaluation of pulmonary emboli. 4.0 cm ascending thoracic aortic aneurysm. Hepatomegaly and fatty infiltration of the liver. Lung Scan-VQ NM 08/01/17 04:50 IMPRESSION: NORMAL VENTILATION-PERFUSION LUNG SCAN. NEGATIVE FOR PULMONARY EMBOLI. Qualifiers PATEINT BEING DISCHARGED WITH ANY OF THE FOLLOWING DIAGNOSIS?: No Plan Time Spent: Greater than 30 Minutes
[2017-08-03] MEDS: AMITRIPTYLINE HCL 75 MG TABLET PO SCH (21:49)
[2017-08-04] MEDS: ALPRAZOLAM 0.5 MG TABLET PO SCH ×3 (00:45→11:30)
[2017-08-04] MEDS: TRAMADOL HCL 50 MG TABLET PO SCH (06:52)
[2017-08-04] MEDS: BUSPIRONE HCL 10 MG TABLET PO SCH (06:53)
--- NOTE | 2017-08-04 09:13 | Physician Advisory Note ---
Physician Advisor ProgressNote .: [facility] I have reviewed the medical record for this patient. Physician Advisor Statement: Status: Medicaid pt w/chronic diastolic CHF, CAD, hypertrophic CMP, HTN, HLD, obesity, COPD, GERD, TAMIKA, dysphagia - in w/SOB, MORA, cough, wheezing, edema, BP 189/104 & as high as 200s systolic at times, mild distress, mod'ly SOB, 2+ edema to knees in ED, w/BNP 50, ECHO w/ min pericardial effusion, grade 2-3 diastolic dysfn, CT-A non-dx-ic, V/Q neg. Brief episode O2 sat 88% without mention of associated difficulty breathing at time. Tx'd to bring down BP. On 08/02, approp to change to Inpt, as documented. Thanks, CK
[2017-08-04] MEDS: DOCUSATE SODIUM 100 MG CAPSULE PO SCH (09:43)
[2017-08-04] MEDS: AMLODIPINE BESYLATE 5 MG TABLET PO SCH (09:43)
[2017-08-04] MEDS: LISINOPRIL 10 MG TABLET PO SCH (09:44)
[2017-08-04] MEDS: MELOXICAM 7.5 MG TABLET PO SCH (09:44)
[2017-08-04] MEDS: METOPROLOL SUCCINATE 50 MG TAB.SR.24H PO SCH (09:45)
[2017-08-04 11:40] VITALS: BP 144/102
--- NOTE | 2017-08-04 13:04 | RADIOLOGY REPORT (SQ) ---
EXAM DESCRIPTION: U/S LTD DUPLEX ART/PETE FLOW COMPLETED DATE/TIME: 08/03/2017 9:22 pm REASON FOR STUDY: Renal artery doppler for uncontrolled hypertension COMPARISON: CT angio chest 04/08/2014, 08/01/2017 TECHNIQUE: Realtime and static grayscale images acquired. Selected color Doppler, velocities and spe ctral images recorded. LIMITATIONS: Body habitus, midline bowel gas FINDINGS: RIGHT KIDNEY: RENAL ARTERY VELOCITIES: At the hilum, 44 cm/sec. Segmental artery velocity 43 cm/sec. RENAL VEIN: Color doppler flow present, patent. VELOCITY RATIO: 1.2. Normal waveforms. KIDNEY: Normal size. No significant pathology. LEFT KIDNEY: RENAL ARTERY VELOCITIES: At the hilum 58 cm/sec. Segmental artery velocity 64 cm/sec. RENAL VEIN: Color doppler flow present, patent. VELOCITY RATIO: 1.6. Normal waveforms. KIDNEY: Normal size. No significant pathology. BLADDER: Normal. OTHER: No other significant finding. IMPRESSION: NO DOPPLER EVIDENCE OF HEMODYNAMICALLY SIGNIFICANT RENAL ARTERY STENOSIS. COMMENT: NORMAL RENAL ARTERY/AORTA VELOCITY RATIO IS LESS THAN OR EQUAL TO 3.5. TECHNICAL DOCUMENTATION: JOB ID: [id number]- All Rights Reserved
--- NOTE | 2017-08-04 14:40 | Progress Note ---
Provider Note Provider Note: This is an addendum to the patient's previous discharge summary. Date of discharge: 08/04/2017. The patient was discharged yesterday. However, she was kept here in the hospital overnight because specific test that was ordered was not completed and did not get done until around 10:30 in the evening. The patient had renal artery Dopplers performed. Those results are not yet available. At the bedside she has no complaints and says that she feels sleepy but is ready to go home. She denies any chest pain or shortness of breath. Her blood pressures are currently in the 140s. GENERAL: This is a well-developed well-nourished morbidly obese - [place]ian female resting in bed currently in no acute distress. HEART: Regular rate and rhythm. No murmurs, rubs or gallops. LUNGS: Clear to auscultation bilaterally with equal rise and fall of the chest. ABDOMEN: Soft, nontender, nondistended with normoactive bowel sounds EXTREMETIES: No clubbing, cyanosis. Trace edema. 1+ peripheral pulses bilaterally. NEURO: Awake, alert and oriented 3. Cranial nerves II through XII are grossly intact. Assessment and plan: Please see discharge summary from yesterday for complete assessment and plan. 1. hypertensive urgency. Continue with prescribed medications at home. Follow- up with PCP for results of renal artery Dopplers. Blood pressures are currently 140.
--- NOTE | 2017-08-08 09:54 | XCELERA REPORT ---
[address] [address] Transthoracic Echocardiogram Report Name: FREDERICK BACH Age: 57 yrs Gender: Female : 1960 Patient Status: Emergency Patient Location: ER Study Date: 07/31/2017 09:37 PM Height: 65 in Weight: 310 lb BSA: 2.4 m2 Procedure: A complete two-dimensional transthoracic echocardiogram was performed (2D, M-mode, spectral and color flow Doppler). The study was technically difficult with many images being suboptimal in quality. Reason For Study: possible pericardial effusion, SOB Ordering Physician: ELO ABREU Performed By: Christina Caicedo Interpretation Summary Left ventricular systolic function is normal. There is moderate concentric left ventricular hypertrophy. The left ventricle is grossly normal size. Doppler measurements suggest pseudonormalized left ventricular relaxation, which is associated with grade II/IV or mild to moderate diastolic dysfunction Wall motion cannot be accurately commented on, but no definite regional wall motion abnormalities noted. No significant valvular stenosis or regurgitation noted. Minimal to small pericardial effusion. MMode/2D Measurements & Calculations RVDd: 3.2 cm LVIDd: 4.9 cm FS: 30.7 % Ao root diam: 3.0 cm IVSd: 1.5 cm LVIDs: 3.4 cm EDV(Teich): 111.0 ml LVPWd: 1.4 cm ESV(Teich): 46.5 ml Ao root area: 7.0 cm2 EF(Teich): 58.2 % LA dimension: 3.6 cm Doppler Measurements & Calculations MV E max jaquelin: MV P1/2t max jaquelin: Ao V2 max: LV V1 max P.0 cm/sec 114.5 cm/sec 157.5 cm/sec 5.0 mmHg MV A max jaquelin: MV P1/2t: 35.7 msec Ao max PG: LV V1 max: 51.8 cm/sec 9.9 mmHg 112.0 cm/sec MV E/A: 2.2 MVA(P1/2t): 6.2 cm2 MV dec slope: 940.0 cm/sec2 MV dec time: 0.12 sec PA V2 max: 83.4 cm/sec PA max P.8 mmHg Left Ventricle The left ventricle is grossly normal size. There is moderate concentric left ventricular hypertrophy. Left ventricular systolic function is normal. Doppler measurements suggest pseudonormalized left ventricular relaxation, which is associated with grade II/IV or mild to moderate diastolic dysfunction. Wall motion cannot be accurately commented on, but no definite regional wall motion abnormalities noted. Right Ventricle The right ventricle is grossly normal size. The right ventricular systolic function is normal. Mitral Valve The mitral valve is grossly normal. There is no mitral valve stenosis. There is a trace to mild amount of mitral regurgitation. Aortic Valve The aortic valve is not well visualized secondary to technical limitations. There is no aortic valve stenosis. No aortic regurgitation is present. Tricuspid Valve The tricuspid valve is not well visualized secondary to technical limitations. There is no tricuspid stenosis. There is a trace or physiologic amount of tricuspid regurgitation. Tricuspid regurgitation jet envelope not well defined to measure RV systolic pressure accurately. Pulmonic Valve The pulmonic valve is not well visualized. Great Vessels The aortic root is not well visualized. The inferior vena cava appeared normal and decreased > 50% with respiration (RAP 5-10 mmHg). Effusions Minimal pericardial effusion. : ELO ABREU > Rodolfo Batista
== END 2017-08-04 12:09 | disposition home or self-care (01) ==
LOC: ER 18:54 → UNDOADMOB 08-01 02:30 → EH 08-01 02:30 → 3W 08-01 04:16
PROVIDERS: ADMIT Family Medicine; ATTEND Family Medicine
DX: I16.0 Hypertensive urgency (principal); I11.0 Hypertensive heart disease with heart failure; I50.32 Chronic diastolic (congestive) heart failure; E66.01 Morbid (severe) obesity due to excess calories; G47.33 Obstructive sleep apnea (adult) (pediatric); D64.9 Anemia, unspecified; R06.09 Other forms of dyspnea; E83.42 Hypomagnesemia; I26.99 Other pulmonary embolism without acute cor pulmonale; K76.0 Fatty (change of) liver, not elsewhere classified; I71.2 Thoracic aortic aneurysm, without rupture; F41.8 Other specified anxiety disorders; J44.9 Chronic obstructive pulmonary disease, unspecified; Z79.01 Long term (current) use of anticoagulants; R79.89 Other specified abnormal findings of blood chemistry
CPT/HCPCS: 93005 ×2; 94640; 99285; 96372; 36415 ×3; 82553; 82550; 83735 ×2; 84443; 85025 ×2; 85610; 85730; 80076; 80048; 80053; 81001; 84484 ×2; 80307; 85379; 80061; 83880; 93306; 71020; 93976; 78582; 71275; 93010 ×2; 94660 ×4; G0379 ×4; A9540; A9567; J3490 ×34; J0360; J3475; Q9969

== ENCOUNTER → 2017-12-23 | Outpatient (CLI) | payer MEDICAID, MEDICARE ==
--- NOTE | 2017-12-23 11:00 | ST Modified Barium Swallow ---
Recommendation - Recommendations Recommendations: No oral or pharyngeal swallowing deficits seen. Possile signs of esophageal dysfunction, may benefit from further gastrointestinal evaluation. Medical Diagnoses - Medical Diagnoses Medical Diagnosis Description & ICD-10 Code(s): R13.10 dysphagia unspecified Other Medical Diagnoses/Co-Morbidities: per patient report: COPD, hypertension, reflux, chronic back pain, "aortic clot" ST Modified Barium Swallow - General Date: 12/23/17 Referring Physician: Dr. Mandeep Wells Reason for Referral: dysphagia - History History obtained from: Patient, Spouse -: Medical - Patient arrived with significant other, both provided history. Patient states that swallowing concerns have been going on for aproximately 1 year. She reports globus sensation at times during meals, and that this can happen with anything. At times this causes coughing during meals. No precipitating event reported, no recent pneumonias reported., Family/Social, Occupational, PT Medications: Patient reports taking omeprazole, ranitidine, latuda, zanax, cymbalta, blood pressure medications, pain medications Allergies: NKDA, tomato - Functional Status Prior Functional Status: INDEPENDENT: feeding - independent - Subjective Patient/caregiver goal(s): safe swallow Cognitive-Linguistic Function: WNL Speech Intelligibility: WNL Current Nutritional Means: PO Current PO diet: Regular Current symptoms: c/o Globus sensation Pain: Patient reports, 3/5 - sore throat and right side knee, shoulder pain - Objective Assessment: Upright, Left Lateral - Food Trials Used Food trials used: Thin liquids, Pureed, Regular The patient: Was Able to Self Feed, via cup - Oral-Motor Skills Dentition: Partial Laryngeal Function: Volitional Cough - WFL, Volitional Swallow - WFL - Assessment Oral prep: Normal Labial closure: Adequate Leakage: None Mastication: Adequate Lingual Movement: Normal Oral stage: Normal for this Procedure - Pharyngeal Stage Initiation of Pharyngeal Stage Reflex: Normal Decreased laryngeal elevation: No Reduced Velopharyngeal Closure: no Reduced pressure generation: No reduced tongue-based retraction: No Pre-swallow pooling in valleculae: None Pre-Swallow pooling in pyriforms: None Reduced Thyro-Hyoid approximation: No Reduced epiglottic excursion: No Reduced pharyngeal peristalsis/contraction: No Post-swallow residulas vallecular: None Post-Swallow residuals in pyriforms: None Post-Swallow Residuals: no residuals - Esophageal Stage Upper Esophageal Transit: Impaired Esophageal Stage: Slowed movement of bolus through esophagus at approximately C5, possible signs of reflux seen. - Fall Risk Assessment Medications/Conditions that increase fall risks include: Antidepressants, sedatives, anti-arrhythmic, diuretic, benzodiazipenes, neuroleptics. BP regulation problems, cardiac problems, balance or gait deficits, neurological problems. Is patient considered at risk for falls: yes - Utilizes walker Fall Risk Actions Taken: No action needed - Behavioral Observations During evaluation process patient: was pleasant, was cooperative, able to answer questions - Treatment / Educational Needs: Treatment/Education Needs: Treatment consisted of patient education on the role of the Speech Pathologist. Patient's plan of care and golas were communicated as well as scheduling and attendance policies. Recommendations for initial home program were shared. Patient demonstrated understanding and verbalized agreement. - Impression/Summary Laryngeal Penetration: No Tracheal Aspiration: no Patient presents with: Normal swallow at eval - possible signs of reflux/ esophageal deficits Risk of Aspiration: Minimal Evaluation and Findings: Patient presents with normal oral and pharyngeal stage swallow this day. Signs of esopohageal dysmotility seen, would benefit from further GI evaluation. - Recommendations Solid diet recommendations: Regular Liquid Diet Modification: Thin Strict aspiration precautions: No Pt/Family education and followup with MD: Yes Dysphagia therapy with AUTOMOBILE TECHNICIAN: no Reflux Precautions: Taught to Patient Recommended techniques: Fully Upright During Meal, Small Bites and Sips Information, Precautions and Recommendations: Patient (Written), Patient (Verbal ), Family Member (Written), Family Member (Verbal) - Time Total Time: 20 - Plan of Care Strategies to optimize patient understanding include:: ongoing assessment of educational needs, implementation of educational strategies, and re-education. - - -: Thank you for the opportunity to work with this patient and his/her family. Should you have any questions about this patient's plan or progress, I can be reached at [phone]. Charge G Code? - - -: Yes ST F.L. Impairment Category - Rationale Based On Rationale Based On: Func. Asses. Tool Results - Swallowing Current G8996: CI 1-19% Impaired Goal G8997: CI 1-19% Impaired Discharge G8998: CI 1-19% Impaired - based on esophageal function
--- NOTE | 2017-12-23 15:18 | RADIOLOGY REPORT (SQ) ---
EXAM DESCRIPTION: U/S THYROID/SFT TISS HD NECK COMPLETED DATE/TIME: 12/23/2017 9:22 am REASON FOR STUDY: LOCLIZED SWELLING, MASS AND LUMP R13.10 DYSPHAGIA, UNSPECIFIED COMPARISON: Thyroid ultrasound 04/09/2014 TECHNIQUE: Dynamic and static lord-scale images acquired of the thyroid gland. Selected additional c olor/power Doppler images recorded. All images stored to PACS. LIMITATIONS: None. FINDINGS: RIGHT LOBE: Right lobe thyroid is 4.4 cm in greatest length with heterogeneous echogenici ty. In the right midpole gland a 10 x 7 mm complex cyst with mural nodule is present (was 8 x 6 mm d iameter of 2014 CT. There is a complex cystic structure in the posterior right midpole gland 9.4 x 8 mm in size (was 9.5 x 7 mm in 2014). In the right lower pole thyroid, a 1.5 x 1 cm cyst is present (was 8 x 6 mm on 2014 scan). LEFT LOBE: Left lobe is 4 cm in greatest length, with heterogeneous echogenicity. In the left midpol e thyroid, a 10.5 x 0.7 cm nodule is present (was 2 x 1.5 cm size on 04/09/2014 CT exam). In the post erior left midpole gland, complex cystic or solid thyroid nodule is present 1.5 x 1.1 cm in size unch anged from prior CT 04/09/2014 ISTHMUS: Mildly thickened, 6 mm, stable Homogeneous echotexture. No cystic or solid masses. OTHER: No other significant finding. IMPRESSION: Normal size thyroid gland with multiple complex cystic lesions bilaterally. TECHNICAL DOCUMENTATION: JOB ID: [id number] [employer]- All Rights Reserved
--- NOTE | 2017-12-25 10:10 | RADIOLOGY REPORT (SQ) ---
EXAM DESCRIPTION: SONA SWALLOW COMPLETED DATE/TIME: 12/23/2017 8:48 am REASON FOR STUDY: DYSPHAGIA, UNSPECIFIED R13.10 DYSPHAGIA, UNSPECIFIED COMPARISON: None. TECHNIQUE: Videofluoroscopic swallowing examination was performed in conjunction with speech patholo gy. Videofluoroscopic imaging was obtained and reviewed and these are the findings: RADIATION DOSE: Fluoro time 2.05 minutes 1 images saved to PACS. LIMITATIONS: None FINDINGS: The patient was brought into the fluoro room and placed upright on a modified barium swall ow chair. The patient was then given multiple consistencies mixed with barium to swallow under live fluoroscopic video guidance. According to the Speech Pathologist there was no penetration or aspirat ion. Intermittent hang up of barium was seen in the upper esophagus. Barium swallow may be useful fo r further evaluation. Please refer to the speech pathology report for further details. IMPRESSION: NO EVIDENCE OF PENETRATION OR ASPIRATION. INTERMITTENT HANG UP OF BARIUM IN UPPER ESOPH CATHY. BARIUM SWALLOW MAY BE USEFUL FOR FURTHER EVALUATION.PLEASE SEE SPEECH PATHOLOGIST REPORT FOR O THER FINDINGS AND RECOMMENDATIONS. COMMENT: NONE Quality ID [id number]: Final reports for procedures using fluoroscopy that document radiation exposure yakov bobbi, or exposure time and number of fluorographic images (if radiation exposure indices are not avail able) TECHNICAL DOCUMENTATION: JOB ID: [id number] [employer]- All Rights Reserved
== END ==
LOC: RAD 08:13
PROVIDERS: ATTEND Otolaryngology
DX: R13.10 Dysphagia, unspecified (principal); R22.1 Localized swelling, mass and lump, neck
CPT/HCPCS: 74230; 76536; 92611; G8996; G8997; G8998

== ENCOUNTER → 2018-01-13 | Outpatient (CLI) | payer MEDICARE ==
--- NOTE | 2018-01-13 10:53 | WOMENS IMAGING REPORT ---
EXAM DESCRIPTION: BILAT SCREENING MAMMO W/CAD COMPLETED DATE/TIME: 01/13/2018 10:26 am REASON FOR STUDY: ROUTINE SCREENING; Z12.31 Z12.31 ENCNTR SCREEN MAMMOGRAM FOR MALIGNANT NEOPLASM O F TANIA R13.10 DYSPHAGIA, UNSPECIFIED COMPARISON: 12/03/2016 and 09/14/2015 TECHNIQUE: Standard craniocaudal and mediolateral oblique views of each breast recorded using Everypointa l acquisition. LIMITATIONS: None. FINDINGS: Findings present which are benign by mammographic criteria. No suspicious masses, calcifi cations or architectural distortion. Pertinent benign findings: Scattered benign-appearing calcifications. Read with the assistance of CAD. .[facility] - R2 Cenova Version 1.3 .[facility] - R2 Cenova Version 1.3 .[facility] - R2 Cenova Version 2.4 .[facility] - R2 Cenova Version 2.4 .[facility] - R2 Cyanide Case Hardener Version 9.2 Benign mammographic findings may include one or more of the following: Smooth masses, popcorn/rim/co arse calcifications, asymmetries, post-procedure changes, and lesions with long-standing stability. IMPRESSION: BENIGN MAMMOGRAPHIC FINDINGS. BIRADS 2 BREAST DENSITY: a. The breasts are almost entirely fatty. BIRAD: 2 BENIGN FINDING(S) RECOMMENDATION: ROUTINE SCREENING COMMENT: The patient has been notified of the results by letter per SA requirements. Additional no tification policies are in place for contacting patient with suspicious or incomplete findings. Quality ID #225: The [employer] recommends an annual screening mammogram for women aged 40 years or over. This facility utilizes a reminder system to ensure that all patients receive reminder letters, and/or direct phone calls for appointments. This includes reminders for routine scr eening mammograms, diagnostic mammograms, or other Breast Imaging Interventions when appropriate. Th is patient will be placed in the appropriate reminder system. The [employer] (ACR) has developed recommendations for screening MRI of the breast s in certain patient populations, to be used in conjunction with mammography. Breast MRI surveillanc e may be appropriate for women with more than 20% lifetime risk of developing breast cancer as deter mined by genetic testing, significant family history of the disease, or history of mantle radiation f or Hodgkins Disease. ACR Practice Guidelines 2008. TECHNICAL DOCUMENTATION: FINDING NUMBER: (1) ASSESSMENT: (1) JOB ID: [id number] [email or web address]- All Rights Reserved
--- NOTE | 2018-01-13 15:01 | RADIOLOGY REPORT (SQ) ---
EXAM DESCRIPTION: BARIUM SWALLOW PHARYNX ONLY COMPLETED DATE/TIME: 01/13/2018 9:48 am REASON FOR STUDY: DYSPHAGIA (R13.10) Z12.31 ENCNTR SCREEN MAMMOGRAM FOR MALIGNANT NEOPLASM OF TANIA R 13.10 DYSPHAGIA, UNSPECIFIED COMPARISON: Video assisted swallowing study 12/23/2017 Thyroid ultrasound 12/23/2017 CT angio chest 08/01/2017 TECHNIQUE: Under fluoroscopic guidance, patient ingested effervescent granules followed by thick and thin barium. Fluoroscopic spot images and routine radiographic images acquired and stored on PACS. 12 MM BARIUM TABLET GIVEN: Yes Barium tablet briefly paused in the esophagus at about the level of the aortic arch before dropping t hrough the remainder of esophagus and into the stomach. LIMITATIONS: None. FLUOROSCOPY TIME: FLUORO TIME: 2 minutes 12 seconds 7 series of digital images saved to PACS. FINDINGS: NEUROMUSCULAR COORDINATION OF SWALLOW: Normal. No aspiration. ESOPHAGEAL MOTILITY: Normal peristalsis. No esophageal spasm. ESOPHAGEAL MUCOSA: Normal mucosa without masses or ulceration. GASTRO-ESOPHAGEAL JUNCTION: There is a small sliding hiatal hernia without Schatzki's ring. Unprovok ed gastroesophageal reflux to the cervical esophagus. NON-GI TRACT STRUCTURES: No significant finding. OTHER: No other significant finding. IMPRESSION: Small hiatal hernia. Unprovoked gastroesophageal reflux to the cervical esophagus No esophageal stricture or gross mucosal abnormality COMMENT: Quality ID 145: Final reports for procedures using fluoroscopy that document radiation exp osure indices, or exposure time and number of fluorographic images (if radiation exposure indices are not available) TECHNICAL DOCUMENTATION: JOB ID: [id number] [employer]- All Rights Reserved
== END ==
LOC: WI 09:00
PROVIDERS: ATTEND Internal Medicine
DX: Z12.31 Encounter for screening mammogram for malignant neoplasm of breast (principal); R13.10 Dysphagia, unspecified; K21.9 Gastro-esophageal reflux disease without esophagitis; K44.9 Diaphragmatic hernia without obstruction or gangrene
CPT/HCPCS: 74210; 77067

== ENCOUNTER 2018-01-20 17:32 | Emergency (ER) | payer MEDICARE, MEDICAID ==
[2018-01-20] MEDS ORDERED: IPRATROPIUM/ALBUTEROL 0.5-2.5 MG/3 ML AMPUL NEB ONE ×2 (18:47→22:32)
[2018-01-20] MEDS ORDERED: PREDNISONE 20 MG TABLET PO ONE (18:47)
--- NOTE | 2018-01-20 18:49 | ER Document Report ---
ED Medical Screen (RME) - General Chief Complaint: Shortness Of Breath Stated Complaint: DIFFICULTY BREATHING Time Seen by Provider: 01/20/18 18:44 Mode of Arrival: Ambulatory Information source: Patient Notes: 57-year-old female history of hypertension COPD CAD presents with complaints of shortness of breath for "a while" patient admits to productive cough I have greeted and performed a rapid initial assessment of this patient. A comprehensive ED assessment and evaluation of the patient, analysis of test results and completion of the medical decision making process will be conducted by additional ED providers. PHYSICAL EXAMINATION: GENERAL: Morbidly obese HEAD: Atraumatic, normocephalic. EYES: Pupils equal round extraocular movements intact, conjunctiva are normal. ENT: Nares patent NECK: Normal range of motion LUNGS: Decreased breath sounds all throughout Musculoskeletal: Normal range of motion NEUROLOGICAL: Normal speech, normal gait. PSYCH: Normal mood, normal affect. SKIN: Warm, Dry, normal turgor, no rashes or lesions noted. TRAVEL OUTSIDE OF THE [place] IN LAST 30 DAYS: No - Related Data Allergies/Adverse Reactions: No Known Drug Allergies Allergy (Verified 06/10/17 17:16) tomato [Tomato] Allergy (Verified 06/10/17 17:16) Past Medical History - Social History Chew tobacco use (# tins/day): No Frequency of alcohol use: None Drug Abuse: None - Past Medical History Cardiac Medical History: Reports: Hx Congestive Heart Failure - Diastolic, Hx Hypertension Denies: Hx Atrial Fibrillation, Hx Coronary Artery Disease, Hx DVT, Hx Heart Attack, Hx Hypercholesterolemia, Hx Pulmonary Embolism Pulmonary Medical History: Reports: Hx COPD, Hx Sleep Apnea - Uncertain CPAP pressure setting. No home oxygen. Denies: Hx Asthma, Hx Tuberculosis Neurological Medical History: Denies: Hx Seizures Endocrine Medical History: Denies: Hx Diabetes Mellitus Type 1, Hx Diabetes Mellitus Type 2, Hx Hyperthyroidism, Hx Hypothyroidism Renal/ Medical History: Denies: Hx Peritoneal Dialysis GI Medical History: Reports: Hx Gastroesophageal Reflux Disease. Denies: Hx Cirrhosis, Hx Hepatitis Musculoskeltal Medical History: Reports Hx Arthritis, Reports Hx Musculoskeletal Deformity, Reports Hx Musculoskeletal Trauma Psychiatric Medical History: Reports: Hx Anxiety, Hx Depression Traumatic Medical History: Reports: Hx Fractures Infectious Medical History: Denies: Hx Hepatitis Past Surgical History: Reports: Hx Cholecystectomy, Hx Orthopedic Surgery - Left anterior cruciate ligament repair, Other - Pericardiocentesis 3 years ago in [place] to drain an effusion. - Immunizations Immunizations up to date: Yes Hx Diphtheria, Pertussis, Tetanus Vaccination: Yes - unk Physical Exam - Vital signs Vitals: Temp Pulse Resp BP Pulse Ox 98.5 F 110 H 21 H 173/108 H 91 L 01/20/18 18:03 01/20/18 18:03 01/20/18 18:03 01/20/18 18:03 01/20/18 18:03 Course - Vital Signs Vital signs: Temp Pulse Resp BP Pulse Ox 98.5 F 110 H 21 H 173/108 H 91 L 01/20/18 18:03 01/20/18 18:03 01/20/18 18:03 01/20/18 18:03 01/20/18 18:03
--- NOTE | 2018-01-20 19:21 | RADIOLOGY REPORT (SQ) ---
EXAM DESCRIPTION: CHEST PA/LAT COMPLETED DATE/TIME: 01/20/2018 6:58 pm REASON FOR STUDY: sob, copd COMPARISON: 07/31/2017 NUMBER OF VIEWS: Two view. TECHNIQUE: Frontal and lateral radiographic views of the chest acquired. LIMITATIONS: None. FINDINGS: LUNGS AND PLEURA: No opacities, masses or pneumothorax. No pleural effusion. MEDIASTINUM AND HILAR STRUCTURES: No masses. No contour abnormalities. HEART AND VASCULAR STRUCTURES: Heart enlarged without failure. Aorta normal for age. BONES: No acute findings. HARDWARE: None in the chest. OTHER: No other significant finding. IMPRESSION: CARDIAC ENLARGEMENT WITHOUT FAILURE. TECHNICAL DOCUMENTATION: JOB ID: [id number] [employer]- All Rights Reserved Reading location - IP/workstation name: [email or web address]
[2018-01-20 19:48] LABS: ABSOLUTE LYMPHOCYTES (AUTO) 2.7 10^3/uL (0.5-4.7); ABSOLUTE MONOCYTES (AUTO) 0.6 10^3/uL (0.1-1.4); ABSOLUTE NEUT (AUTO) 4.8 10^3/uL (1.7-8.2); BASOPHILS % (AUTO) 0.2 % (0-2); EOSINOPHILS % (AUTO) 0.1 % (0-6); HEMOGLOBIN 11.9 g/dL (12.0-15.5); LYMPHOCYTES % (AUTO) 33.2 % (13-45); MEAN CORPUSCULAR HEMOGLOBIN 30.9 pg (27.0-33.4); MEAN CORPUSCULAR HGB CONC 33.1 g/dL (32.0-36.0); MEAN CORPUSCULAR VOLUME 93 fl (80-97); MONOCYTES % (AUTO) 7.1 % (3-13); PLATELET COUNT 276 10^3/uL (150-450); RED BLOOD COUNT 3.85 10^6/uL (3.72-5.28); RED CELL DISTRIBUTION WIDTH 15.6 % (11.5-14.0); SEGMENTED NEUTROPHILS % (AUTO) 59.4 % (42-78); TOTAL CELLS COUNTED % (AUTO) 100 %; WHITE BLOOD COUNT 8.1 10^3/uL (4.0-10.5)
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
[2018-01-20 20:08] LABS: BLOOD UREA NITROGEN 11 mg/dL (7-20); CALCIUM 9.3 mg/dL (8.4-10.2); GLUCOSE 90 mg/dL (75-110)
[2018-01-20 20:09] LABS: ALANINE AMINOTRANSFERASE 30 U/L (9-52); ALBUMIN 4.2 g/dL (3.5-5.0); ALKALINE PHOSPHATASE 87 U/L (38-126); ANION GAP 11 (5-19); ASPARTATE AMINO TRANSFERASE 29 U/L (14-36); BILIRUBIN,DIRECT 0.4 mg/dL (0.0-0.4); BILIRUBIN,TOTAL 0.4 mg/dL (0.2-1.3); CARBON DIOXIDE 30 mmol/L (22-30); CHLORIDE 98 mmol/L (98-107); CREATINE KINASE 181 U/L (30-135); POTASSIUM 3.8 mmol/L (3.6-5.0); SODIUM 138.7 mmol/L (137-145); TOTAL PROTEIN 7.2 g/dL (6.3-8.2)
[2018-01-20 20:21] LABS: CREATINE KINASE MB 0.74 ng/mL (<4.55)
[2018-01-20 20:29] LABS: TROPONIN I < 0.012 ng/mL
--- NOTE | 2018-01-20 20:37 | EKG REPORT ---
SEVERITY:- BORDERLINE ECG - SINUS OR ECTOPIC ATRIAL TACHYCARDIA BORDERLINE R WAVE PROGRESSION, ANTERIOR LEADS BORDERLINE T ABNORMALITIES, INFERIOR LEADS : Confirmed by: Dominic Collins MD 20-Jan-2018 20:36:23
[2018-01-20 21:11] LABS: VENOUS BLOOD BASE EXCESS 4.5 mmol/L; VENOUS BLOOD HCO3 29.7 mmol/L (20-32); VENOUS BLOOD PCO2 46.6 mmHg (35-63); VENOUS BLOOD PH 7.42 (7.30-7.42)
--- NOTE | 2018-01-20 22:44 | RADIOLOGY REPORT (SQ) ---
EXAM DESCRIPTION: CTA CHEST COMPLETED DATE/TIME: 01/20/2018 10:17 pm REASON FOR STUDY: tachycardia, hypoxia, hemoptysis; eval PE COMPARISON: None. TECHNIQUE: CT scan of the chest performed using helical scanning technique with dynamic intravenous contrast injection. Images reviewed with lung, soft tissue and bone windows. Reconstructed coronal and sagittal MPR images reviewed. Additional 3 dimensional post-processing performed to develop Maximal Intensity Projection images (IN P). All images stored on PACS. All CT scanners at this facility use dose modulation, iterative reconstruction, and/or weight based d osing when appropriate to reduce radiation dose to as low as reasonably achievable (ALARA). [facility]: Dose Right [facility]: CareDose [facility]: Dose Right [facility]: Teradose 4D [facility]: [employer] CONTRAST TYPE AND DOSE: contrast/concentration: Isovue 370.00 mg/ml; Total Contrast Delivered: 100.0 ml; Total Saline Delivered: 60.0 ml Contrast bolus adequate for pulmonary arteries and aorta. RENAL FUNCTION: GFR > 60. RADIATION DOSE: CT Rad equipment meets quality standard of care and radiation dose reduction techniq ues were employed. CTDIvol: 55.8 mGy. DLP: 1698 mGy-cm. . LIMITATIONS: None. FINDINGS: LUNGS AND PLEURA: No masses, infiltrates, pneumothorax. No pleural effusions, calcificati ons. AORTA AND GREAT VESSELS: No aneurysm. Contrast bolus not optimized for the aorta. HEART: No pericardial effusion. No significant coronary artery calcifications. PULMONARY ARTERIES: No emboli visualized in the main pulmonary arteries or the segmental branches. HILAR AND MEDIASTINAL STRUCTURES: No identified masses or abnormal nodes. HARDWARE: None in the chest. UPPER ABDOMEN: Fatty liver THYROID AND OTHER SOFT TISSUES: No masses. No adenopathy. BONES: No acute or significant finding. 3D MIPS: Confirm above findings. OTHER: No other significant finding. IMPRESSION: No pulmonary emboli. Enlarged fatty liver. COMMENT: Quality ID # [id number]: Final reports with documentation of one or more dose reduction techniques (e.g., Automated exposure control, adjustment of the mA and/or kV according to patient size, use of iterative reconstruction technique) TECHNICAL DOCUMENTATION: JOB ID: [id number] [employer]- All Rights Reserved Reading location - IP/workstation name: [email or web address]
[2018-01-20] MEDS ORDERED: FUROSEMIDE 40 MG TABLET PO ONE (23:35)
[2018-01-20] MEDS ORDERED: METOPROLOL SUCCINATE 50 MG TAB.SR.24H PO ONE (23:35)
[2018-01-20] MEDS ORDERED: LISINOPRIL 10 MG TABLET PO ONE (23:35)
[2018-01-21 00:44] VITALS: BP 163/91
== END 2018-01-21 01:31 | disposition home or self-care (01) ==
LOC: ER 17:32
DX: J44.1 Chronic obstructive pulmonary disease with (acute) exacerbation (principal); K76.0 Fatty (change of) liver, not elsewhere classified; I11.0 Hypertensive heart disease with heart failure; I50.30 Unspecified diastolic (congestive) heart failure; I25.10 Atherosclerotic heart disease of native coronary artery without angina pectoris; G47.30 Sleep apnea, unspecified; R04.2 Hemoptysis; R09.02 Hypoxemia; R06.02 Shortness of breath; R00.0 Tachycardia, unspecified; R07.9 Chest pain, unspecified; Z79.899 Other long term (current) drug therapy; Z91.018 Allergy to other foods
CPT/HCPCS: 93005; 94640 ×2; 99285; 36415; 82553; 82550; 85025; 80053; 84484; 82803; 83880; 71046; 71275; 93010; A9270 ×5; J7512; J7620

== ENCOUNTER 2018-02-11 14:24 | Observation (INO) | payer MEDICARE, MEDICAID ==
[2018-02-11] MEDS ORDERED: ASPIRIN 81 MG TABLET, CHEWABLE PO ONE (14:26)
[2018-02-11 15:47] LABS: ABSOLUTE LYMPHOCYTES (AUTO) 2.4 10^3/uL (0.5-4.7); ABSOLUTE MONOCYTES (AUTO) 0.5 10^3/uL (0.1-1.4); ABSOLUTE NEUT (AUTO) 3.2 10^3/uL (1.7-8.2); BASOPHILS % (AUTO) 0.5 % (0-2); EOSINOPHILS % (AUTO) 0.2 % (0-6); HEMOGLOBIN 12.4 g/dL (12.0-15.5); LYMPHOCYTES % (AUTO) 38.8 % (13-45); MEAN CORPUSCULAR HEMOGLOBIN 30.3 pg (27.0-33.4); MEAN CORPUSCULAR HGB CONC 32.6 g/dL (32.0-36.0); MEAN CORPUSCULAR VOLUME 93 fl (80-97); MONOCYTES % (AUTO) 8.2 % (3-13); PLATELET COUNT 239 10^3/uL (150-450); RED BLOOD COUNT 4.09 10^6/uL (3.72-5.28); RED CELL DISTRIBUTION WIDTH 15.8 % (11.5-14.0); SEGMENTED NEUTROPHILS % (AUTO) 52.3 % (42-78); TOTAL CELLS COUNTED % (AUTO) 100 %; WHITE BLOOD COUNT 6.1 10^3/uL (4.0-10.5)
--- NOTE | 2018-02-11 15:51 | RADIOLOGY REPORT (SQ) ---
EXAM DESCRIPTION: CHEST SINGLE VIEW COMPLETED DATE/TIME: 02/11/2018 3:17 pm REASON FOR STUDY: cp COMPARISON: CT angio chest 01/20/2018 Chest films 01/20/2018, 06/10/2017 EXAM PARAMETERS: NUMBER OF VIEWS: One view. TECHNIQUE: Single frontal radiographic view of the chest acquired. RADIATION DOSE: NA LIMITATIONS: None. FINDINGS: LUNGS AND PLEURA: No opacities, masses or pneumothorax. No pleural effusion. MEDIASTINUM AND HILAR STRUCTURES: No masses. Contour normal. HEART AND VASCULAR STRUCTURES: Heart normal in size. Normal vasculature. BONES: No acute findings. HARDWARE: None in the chest. OTHER: No other significant finding. IMPRESSION: NO ACUTE RADIOGRAPHIC FINDING IN THE CHEST. TECHNICAL DOCUMENTATION: JOB ID: [id number] [employer]- All Rights Reserved Reading location - IP/workstation name: [email or web address]
[2018-02-11 16:12] LABS: ALANINE AMINOTRANSFERASE 44 U/L (9-52); ALBUMIN 4.2 g/dL (3.5-5.0); ALKALINE PHOSPHATASE 87 U/L (38-126); ANION GAP 12 (5-19); ASPARTATE AMINO TRANSFERASE 37 U/L (14-36); BILIRUBIN,DIRECT 0.3 mg/dL (0.0-0.4); BILIRUBIN,TOTAL 0.3 mg/dL (0.2-1.3); BLOOD UREA NITROGEN 10 mg/dL (7-20); CALCIUM 9.5 mg/dL (8.4-10.2); CARBON DIOXIDE 32 mmol/L (22-30); CHLORIDE 101 mmol/L (98-107); CREATINE KINASE 202 U/L (30-135); GLUCOSE 118 mg/dL (75-110); POTASSIUM 3.4 mmol/L (3.6-5.0); SODIUM 144.8 mmol/L (137-145); TOTAL PROTEIN 7.5 g/dL (6.3-8.2)
[2018-02-11 16:25] LABS: CREATINE KINASE MB 0.77 ng/mL (<4.55)
[2018-02-11 16:28] LABS: TROPONIN I < 0.012 ng/mL
--- NOTE | 2018-02-11 16:46 | ER Document Report ---
ED Cardiac - General Chief Complaint: Chest Pain Stated Complaint: CHEST PAIN Time Seen by Provider: 02/11/18 16:41 Mode of Arrival: Ambulatory Information source: Patient TRAVEL OUTSIDE OF THE [place] IN LAST 30 DAYS: No - HPI Patient complains to provider of: Chest pain Was the onset of pain: Sudden When did pain begin: YESTERDAY Is the pain a: New problem Chest pain location: Substernal, Under breast - LEFT Quality of pain: Sharp, Throbbing Chest pain radiation location: Back Severity now: Mild Severity at worst: Moderate Chest pain precipitating factors: At Rest Cardiac risk factors: Hypertension, + Family history, Hx CHF Positive cardiac history: No Associated symptoms: Diaphoresis, Shortness of breath. denies: Nausea/vomiting Exacerbated by: Torso movement Relieved by: Nothing Similar symptoms previously: Yes - NO Dx Recently seen / treated by doctor: Yes - PCP, TODAY - Related Data Allergies/Adverse Reactions: No Known Drug Allergies Allergy (Verified 06/10/17 17:16) tomato [Tomato] Allergy (Verified 06/10/17 17:16) Past Medical History - General Information source: Patient - Social History Smoking Status: Never Smoker Frequency of alcohol use: None Drug Abuse: None Lives with: Spouse/Significant other Family History: Arthritis, Hypertension, Malignancy, Thyroid Disfunction Patient has suicidal ideation: No Patient has homicidal ideation: No - Past Medical History Cardiac Medical History: Reports: Hx Congestive Heart Failure - Diastolic, Hx Hypertension Denies: Hx Atrial Fibrillation, Hx Coronary Artery Disease, Hx DVT, Hx Heart Attack, Hx Hypercholesterolemia, Hx Pulmonary Embolism Pulmonary Medical History: Reports: Hx COPD, Hx Sleep Apnea - Uncertain CPAP pressure setting. No home oxygen. Denies: Hx Asthma, Hx Tuberculosis Neurological Medical History: Denies: Hx Seizures Endocrine Medical History: Denies: Hx Diabetes Mellitus Type 1, Hx Diabetes Mellitus Type 2, Hx Hyperthyroidism, Hx Hypothyroidism Renal/ Medical History: Denies: Hx Peritoneal Dialysis GI Medical History: Reports: Hx Gastroesophageal Reflux Disease. Denies: Hx Cirrhosis, Hx Hepatitis Musculoskeltal Medical History: Reports Hx Arthritis, Reports Hx Musculoskeletal Deformity, Reports Hx Musculoskeletal Trauma Psychiatric Medical History: Reports: Hx Anxiety, Hx Depression Traumatic Medical History: Reports: Hx Fractures Infectious Medical History: Denies: Hx Hepatitis Past Surgical History: Reports: Hx Cholecystectomy, Hx Orthopedic Surgery - Left anterior cruciate ligament repair, Other - Pericardiocentesis 3 years ago in [place] to drain an effusion. - Immunizations Immunizations up to date: Yes Hx Diphtheria, Pertussis, Tetanus Vaccination: Yes - unk Hx Pneumococcal Vaccination: 04/13/14 Review of Systems - Review of Systems Constitutional: Diaphoresis EENT: No symptoms reported Cardiovascular: See HPI Respiratory: See HPI Gastrointestinal: No symptoms reported Genitourinary: No symptoms reported Female Genitourinary: No symptoms reported Musculoskeletal: No symptoms reported Skin: No symptoms reported Neurological/Psychological: No symptoms reported Physical Exam - Vital signs Vitals: Pulse Ox 95 02/11/18 14:26 Interpretation: Hypertensive. No: Tachycardic, Hypoxic, Tachypneic, Febrile - General General appearance: Appears well, Alert In distress: None - HEENT Head: Normocephalic Eyes: Normal Conjunctiva: Normal Ears: Normal Nasal: Normal Mouth/Lips: Normal Mucous membranes: Normal - Respiratory Respiratory status: No respiratory distress Breath sounds: Normal - Cardiovascular Rhythm: Regular Heart sounds: Normal auscultation Murmur: No - Abdominal Inspection: Obese Bowel sounds: Normal - Back Back: Normal - Extremities General upper extremity: Normal inspection General lower extremity: Normal inspection. No: Tender, Edema - Neurological Neuro grossly intact: Yes Cognition: Normal Orientation: AAOx4 - Psychological Associated symptoms: Normal affect, Normal mood - Skin Skin Temperature: Warm Skin Moisture: Dry Skin Color: Normal Skin Turgor: Elastic Course - Vital Signs Vital signs: Temp Pulse Resp BP Pulse Ox 98.9 F 19 154/112 H 99 02/11/18 15:09 02/11/18 20:16 02/11/18 20:16 02/11/18 20:16 - Laboratory Result Diagrams: 02/11/18 15:30 02/11/18 15:30 Laboratory results interpreted by me: 02/11/18 02/11/18 15:30 15:30 RDW 15.8 H Potassium 3.4 L Carbon Dioxide 32 H Glucose 118 H AST 37 H Creatine Kinase 202 H - Diagnostic Test Radiology reviewed: Image reviewed, Reports reviewed - EKG Interpretation by Al EKG shows normal: Sinus rhythm. abnormal: Intervals - LONG QT, QRS Complexes - LATE TRANSITION Rate: Normal Rhythm: NSR P Waves: LAE Discharge - Discharge Clinical Impression: Hypertensive urgency Chest pain Qualifiers: Chest pain type: precordial pain Qualified Code(s): R07.2 - Precordial pain Condition: Good Disposition: ADMITTED OBSERVATION Admitting Provider: Hospitalist Unit Admitted: Telemetry
[2018-02-11] MEDS ORDERED: LABETALOL HCL INJ 20 MG/4 ML DISP.SYRIN IV ONE ×3 (17:02→20:14)
[2018-02-11] MEDS ORDERED: NITROGLYCERIN 0.4 MG/TAB 25 TAB/BOTTLE SL PRN ×2 (17:02→21:31)
[2018-02-11] MEDS ORDERED: NITROGLYCERIN 2% OINTMENT 1 GM PACKET TP ONE (18:36)
[2018-02-11] MEDS ORDERED: ONDANSETRON 4 MG TAB.RAPDIS PO ONE (18:36)
[2018-02-11] MEDS ORDERED: METOPROLOL TARTRATE 25 MG TABLET PO ONE (19:03)
[2018-02-11] MEDS ORDERED: ACETAMINOPHEN 325 MG TABLET PO PRN (21:26)
[2018-02-11] MEDS ORDERED: PROMETHAZINE HCL INJ 25 MG/1 ML VIAL IV PRN (21:26)
[2018-02-11] MEDS ORDERED: ALBUTEROL SULFATE 0.083% NEB 2.5 MG/3 ML AMPUL NEB PRN (21:26)
--- NOTE | 2018-02-11 22:59 | EKG REPORT ---
SEVERITY:- ABNORMAL ECG - SINUS RHYTHM PROBABLE LEFT ATRIAL ABNORMALITY BORDERLINE R WAVE PROGRESSION, ANTERIOR LEADS PROLONGED QT INTERVAL : Confirmed by: Rodolfo Batista 11-Feb-2018 22:58:32
[2018-02-12 02:40] LABS: HEMOGLOBIN 11.9 g/dL (12.0-15.5); MEAN CORPUSCULAR HEMOGLOBIN 30.4 pg (27.0-33.4); MEAN CORPUSCULAR VOLUME 92 fl (80-97); PLATELET COUNT 203 10^3/uL (150-450); RED CELL DISTRIBUTION WIDTH 16.2 % (11.5-14.0); WHITE BLOOD COUNT 5.8 10^3/uL (4.0-10.5)
[2018-02-12 02:47] LABS: ANION GAP 8 (5-19); BLOOD UREA NITROGEN 11 mg/dL (7-20); CARBON DIOXIDE 33 mmol/L (22-30); CHLORIDE 103 mmol/L (98-107); GLUCOSE 129 mg/dL (75-110); POTASSIUM 3.2 mmol/L (3.6-5.0); SODIUM 143.9 mmol/L (137-145)
--- NOTE | 2018-02-12 02:47 | PDOC H&P ---
History of Present Illness Admission Date/PCP: ED BEASLEY MD Patient complains of: Chest pain 2 episodes since yesterday. History of Present Illness: FREDERICK BACH is a 57 year old morbidly obese female with history of PE ( not on anticoagulation), pericardial effusion (post pericardiocentesis 3 years ago), obstructive sleep apnea (? CPAP) and chronic CHF was sent from her ENT physician's office after she complained of having chest pain. According to the patient, she has been having sharp chest pain intermittently for the last couple of years but it has been getting more persistent recently. She started having some chest pain yesterday around 5 PM while at rest. The episode lasted about 20 minutes with no alleviating factors but coughing made it worse. The pain was radiating to her jaw and through to her back and underneath her left breast. It was associated with shortness of breath, diaphoresis, nausea but no vomiting, palpitations and presyncope. She had similar episode at her ENT physician's office this afternoon around 1:30 PM. The episode lasted about 30 minutes and she rated thet pain as 6/10 in intensity. She received 1 sublingual nitro and 4 baby aspirins en route to the hospital. The patient apparently had a scheduled appointment with ENT today since she has been complaining of having "dysphagia". She reported having intermittent fevers and chills with cough and yellowish, blood tinged sputum intermittently, no sick contact. She was recently diagnosed with acute bronchitis and was given 10 days of Levaquin which she finished a week ago. Of note, according to her daughter the patient complained of chest pain and feeling presyncopal last week. She was seen at her PCP's office who switched her from metoprolol twice a day to once a day and added another BP medication (not sure which one). She also complained of right-sided abdominal discomfort and recent diarrhea. She has been having 3-4 bowel movements a day of liquid, nonbloody stool. She thinks that her urine output has decreased since she started having diarrhea. She complains of feeling generalized weakness. She usually ambulates using a walker since she has "weak knees". In the ED, her temperature was 98.9, heart rate 5, respiratory rate 21, blood pressure 145/100 with oxygen saturation of 95% on room air. WBC was 6.1 with hemoglobin of 12.4. She received 1 inch of 2% Nitropaste and 3 doses of 10 mg IV labetalol in addition to 25 mg metoprolol 1 since her blood pressure was up to 182/119. The patient currently is rating her chest pain at 5/10. Past Medical History Medical History: Other - According to patient and family and based on previous records. Cardiac Medical History: Reports: Congestive Heart Failure - Diastolic, Hypertension, Pulmonary Embolism Denies: Atrial Fibrillation, Coronary Artery Disease, DVT, Myocardial Infarction, Hyperlipidema Pulmonary Medical History: Reports: Sleep Apnea - Uncertain CPAP pressure setting. No home oxygen. Denies: Asthma, Tuberculosis Neurological Medical History: Denies: Seizures Endocrine Medical History: Denies: Diabetes Mellitus Type 2, Hypothyroidism GI Medical History: Reports: Gastroesophageal Reflux Disease Denies: Cirrhosis, Hepatitis Musculoskeltal Medical History: Reports: Arthritis Psychiatric Medical History: Reports: Depression Past Surgical History Past Surgical History: Reports: Cholecystectomy, Mastectomy - L lumpectomy x2 and R lumpectomy x1 (begnin per patient)., Orthopedic Surgery - Left anterior cruciate ligament repair; left knee replacement., Other - Pericardiocentesis 3 years ago in [place] to drain an effusion. Social History Lives with: Spouse/Significant other Smoking Status: Never Smoker Frequency of Alcohol Use: None Hx Recreational Drug Use: No Drugs: None Hx Prescription Drug Abuse: No - Advance Directive Resuscitation Status: Full Code Family History Family History: Arthritis, Hypertension, Malignancy, Thyroid Disfunction Parental Family History Reviewed: Yes - Sister: CAD, brothers 2:DM2. Children Family History Reviewed: No Sibling(s) Family History Reviewed.: Yes Medication/Allergy Home Medications: Alprazolam [Xanax] 1 mg PO QID 08/01/17 Amitriptyline HCl [Elavil 100 mg Tablet] 150 mg PO QHS 08/01/17 Buspirone HCl [Buspar 5 mg Tablet] 5 mg PO TID 08/01/17 Cyclobenzaprine HCl [Flexeril 5 mg Tablet] 5 mg PO Q8 08/01/17 Imipramine HCl [Tofranil] 50 mg PO TID 08/01/17 Meloxicam [Mobic 7.5 mg Tablet] 7.5 mg PO BID 08/01/17 Tramadol HCl [Ultram 50 mg Tablet] 50 mg PO TID 08/01/17 Amlodipine Besylate [Norvasc 5 mg Tablet] 5 mg PO DAILY #30 tablet 08/03/17 Furosemide [Lasix 40 mg Tablet] 40 mg PO BID #60 tablet 08/03/17 Lisinopril [Prinivil 10 mg Tablet] 20 mg PO DAILY #30 tablet 08/03/17 Metoprolol Succinate [Toprol Xl 50 mg Tab.sr] 50 mg PO Q12 #60 tab.sr.24h Albuterol Sulfate [Proair HFA Inhalation Aerosol 8.5 gm MDI] 2 puff IH Q4H PRN # 1 mdi 01/21/18 Lisinopril 40 mg PO DAILY #30 tablet 01/21/18 Metoprolol Succinate [Toprol Xl 50 mg Tab.sr] 50 mg PO Q12 #60 tab.sr.24h Prednisone 60 mg PO DAILY #15 tablet 01/21/18 Allergies/Adverse Reactions: No Known Drug Allergies Allergy (Verified 06/10/17 17:16) tomato [Tomato] Allergy (Verified 06/10/17 17:16) Review of Systems ROS unobtainable: Other - Pertinent positives and negatives as detailed in HPI. Physical Exam Vital Signs: Temp Pulse Resp BP Pulse Ox 98.9 F 19 154/112 H 99 02/11/18 15:09 02/11/18 20:16 02/11/18 20:16 02/11/18 20:16 Intake & Output 02/10/18 02/11/18 02/12/18 06:59 06:59 06:59 Weight 139.4 kg General appearance: PRESENT: no acute distress, well-developed, well-nourished Head exam: PRESENT: atraumatic, normocephalic Eye exam: PRESENT: conjunctiva pink, EOMI. ABSENT: scleral icterus Mouth exam: PRESENT: moist, neck supple Neck exam: PRESENT: full ROM. ABSENT: JVD Respiratory exam: PRESENT: decreased breath sounds. ABSENT: rales, rhonchi, wheezes Cardiovascular exam: PRESENT: RRR, +S1, +S2 Pulses: PRESENT: normal dorsalis pedis pul GI/Abdominal exam: PRESENT: normal bowel sounds, soft, tenderness - diffuse.. ABSENT: rebound, rigid Rectal exam: PRESENT: deferred Extremities exam: ABSENT: pedal edema Musculoskeletal exam: PRESENT: full ROM Neurological exam: PRESENT: alert, altered, awake, motor sensory deficit - grossly. Skin exam: PRESENT: dry, warm. ABSENT: erythema, rash Results Laboratory Results: 02/11/18 15:30 02/11/18 15:30 02/11/18 02/11/18 15:30 15:30 WBC 6.1 RBC 4.09 Hgb 12.4 Hct 38.0 MCV 93 MCH 30.3 MCHC 32.6 RDW 15.8 H Plt Count 239 Seg Neutrophils % 52.3 Lymphocytes % 38.8 Monocytes % 8.2 Eosinophils % 0.2 Basophils % 0.5 Absolute Neutrophils 3.2 Absolute Lymphocytes 2.4 Absolute Monocytes 0.5 Absolute Eosinophils 0.0 Absolute Basophils 0.0 Sodium 144.8 Potassium 3.4 L Chloride 101 Carbon Dioxide 32 H Anion Gap 12 BUN 10 Creatinine 0.71 Est GFR ( Amer) > 60 Est GFR (Non-Af Amer) > 60 Glucose 118 H Calcium 9.5 Total Bilirubin 0.3 AST 37 H ALT 44 Alkaline Phosphatase 87 Total Protein 7.5 Albumin 4.2 02/11/18 02/11/18 02/11/18 15:30 15:30 20:10 Creatine Kinase 202 H CK-MB (CK-2) 0.77 Troponin I < 0.012 < 0.012 EKG Comments: Sinus twelve-lead EKG, sinus rhythm, ventricular rate 90, axis 0, QTC prolongation, first-degree AV block, no acute changes. When compared to a previous 12-lead EKG done on 01/20/2018. Impressions: Chest X-Ray 02/11/18 14:26 IMPRESSION: NO ACUTE RADIOGRAPHIC FINDING IN THE CHEST. Assessment & Plan - Diagnosis (1) Chest pain Qualifiers: Chest pain type: unspecified Qualified Code(s): R07.9 - Chest pain, unspecified Is this a current diagnosis for this admission?: Yes Plan: Secondary to cardiac and/or a GI and/or pleuritic etiology. Will continue to cycle cardiac enzymes and check ddimer and an echocardiogram. Will also schedule her for a nuclear stress test in a.m. if chest pain-free and negative d -dimer. Of note, she had a CAT scan angiogram of her chest on 01/20/2018 which was negative for PE. She also had a modified barium swallow on 12/23/2017 and a barium swallow on 01/13/2018 with the latter showing small hiatal hernia and GERD. The patient on omeprazole at home which we will replace with Prevacid while hospitalized. She is also on meloxicam which will hold for now. If her symptoms persist with negative cardiac workup, she may need an EGD. she is post a cholecystectomy (2) Hypertensive urgency Is this a current diagnosis for this admission?: Yes Plan: We will continue to monitor and adjust her BP medications doses as indicated. Hydralazine IV as needed. (3) TAMIKA (obstructive sleep apnea) Is this a current diagnosis for this admission?: No Plan: not sure if compliant with CPAP. (4) Morbid obesity with BMI of 50.0-59.9, adult Is this a current diagnosis for this admission?: No - Time Time Spent: 50 to 70 Minutes Anticipated discharge: Home
[2018-02-12] MEDS: LANSOPRAZOLE 30 MG TAB.RAP.DR PO SCH (08:26)
[2018-02-12] MEDS: ENOXAPARIN SODIUM INJ 40 MG/0.4 ML DISP.SYRIN SUBCUT SCH (10:27)
[2018-02-12] MEDS ORDERED: (PENDING PHARMACY ID) (Lisinopril [Zestril] 40 MG) PO SCH (10:45)
[2018-02-12] MEDS ORDERED: IMIPRAMINE HCL 50 MG PO SCH (10:45)
[2018-02-12] MEDS ORDERED: (PENDING PHARMACY ID) (Lurasidone Hcl [Latuda] 80 MG) PO SCH (10:45)
[2018-02-12] MEDS ORDERED: CARVEDILOL 12.5 MG TABLET PO SCH (11:00)
[2018-02-12] MEDS ORDERED: ISOSORBIDE MONONITRATE 30 MG TAB.ER.24H PO ONE (11:15)
[2018-02-12] MEDS ORDERED: METOPROLOL SUCCINATE 50 MG TAB.SR.24H PO ONE (11:15)
[2018-02-12] MEDS ORDERED: POTASSIUM CHLORIDE 10 MEQ TABLET.SA PO ONE (11:15)
[2018-02-12] MEDS ORDERED: MAGNESIUM SULFATE/D5W 1 GM/100 ML RTUPB IV ONE (11:36)
[2018-02-12] MEDS: IMIPRAMINE HCL 25 MG TABLET PO SCH ×2 (14:57→17:12)
--- NOTE | 2018-02-12 16:54 | PDOC PROGRESS REPORT ---
Subjective Progress Note for:: 02/12/18 Subjective:: FREDERICK BACH is a 57 year old female sent to the emergency department from her ENT physician's office after complaining of chest pain. Of note, the patient was recently treated for acute bronchitis and was given 10 days of Levaquin which she finished 1 week ago. Additionally the patient has a history of PE (not on anticoagulation), pericardial effusion (post pericardiocentesis 3 years ago). Additional PMH includes TAMIKA, CHF, morbid obesity. The patient was seen this morning on rounds, she currently denies any complaints , states she has an appetite and wants to eat lunch. The patient reports has not had a bowel movement in 24+ hours, but states she was previously having multiple episodes of diarrhea per day. Additionally, the patient states she experienced an episode of chest pain earlier this morning but did not inform the nursing staff, she states the sharp L sided chest pain lasted approximately 20 minutes and resolved on it's own. Reason For Visit: CHEST PAIN Physical Exam Vital Signs: Temp Pulse Resp BP Pulse Ox 97.8 F 97 20 155/86 H 96 02/12/18 12:00 02/12/18 14:00 02/12/18 12:08 02/12/18 12:00 02/12/18 12:08 Intake & Output 02/11/18 02/12/18 02/13/18 06:59 06:59 06:59 Intake Total 10 Output Total 550 Balance -540 Weight 139.2 kg General appearance: PRESENT: no acute distress, morbidly obese Head exam: PRESENT: atraumatic Eye exam: PRESENT: conjunctiva pink, PERRLA Mouth exam: PRESENT: moist Neck exam: PRESENT: full ROM Respiratory exam: PRESENT: clear to auscultation pierre, symmetrical, unlabored Cardiovascular exam: PRESENT: +S1, +S2 Pulses: PRESENT: normal radial pulses, +1 pedal pulses bilateral GI/Abdominal exam: PRESENT: soft. ABSENT: tenderness Rectal exam: PRESENT: deferred Extremities exam: PRESENT: full ROM. ABSENT: joint swelling, pedal edema Musculoskeletal exam: PRESENT: ambulatory, full ROM Neurological exam: PRESENT: alert, awake, oriented to person, oriented to place , oriented to time, oriented to situation Psychiatric exam: PRESENT: appropriate affect Skin exam: PRESENT: normal color Results Laboratory Results: 02/12/18 02:27 02/12/18 02:27 02/12/18 02/12/18 02/12/18 02:27 02:27 02:27 WBC 5.8 RBC 3.90 Hgb 11.9 L Hct 36.0 MCV 92 MCH 30.4 MCHC 33.0 RDW 16.2 H Plt Count 203 Sodium 143.9 Potassium 3.2 L Chloride 103 Carbon Dioxide 33 H Anion Gap 8 BUN 11 Creatinine 0.71 Est GFR ( Amer) > 60 Est GFR (Non-Af Amer) > 60 Glucose 129 H Calcium 9.0 Magnesium 1.4 L 02/12/18 02/12/18 02/12/18 02:27 09:06 14:30 Troponin I < 0.012 < 0.012 < 0.012 Impressions: Chest X-Ray 02/11/18 14:26 IMPRESSION: NO ACUTE RADIOGRAPHIC FINDING IN THE CHEST. Status: Imported from PACS Assessment & Plan - Diagnosis (1) Chest pain Qualifiers: Chest pain type: unspecified Qualified Code(s): R07.9 - Chest pain, unspecified Is this a current diagnosis for this admission?: Yes Plan: Unclear etiology -cardiac versus GI versus pleuritic etiology. Serial cardiac enzymes negative, no longer trending d-dimer 0.52, consider chest CT if patient continues to experience chest pain. Of note, CTA from was negative for PE. Confirmed dx of hiatal hernia and GERD 1 month ago, continue prevacid ECHOcardiogram done today, results pending. Stress test tomorrow. If results are negative, may need to consider EGD (2) Hypertensive urgency Is this a current diagnosis for this admission?: Yes Plan: Improving. Restarted patient's home antihypertensives. PRN hydralazine IV (3) Morbid obesity with BMI of 50.0-59.9, adult Is this a current diagnosis for this admission?: No Plan: Patient's BMI is 51.1 - which qualifies as MORBID obesity. Diligence will be required to ensure that the patient's takes a heart healthy diet. Appreciate nutrition recommendations. (4) Diarrhea Qualifiers: Diarrhea type: unspecified type Qualified Code(s): R19.7 - Diarrhea, unspecified Is this a current diagnosis for this admission?: Yes Plan: Patient endorses a 2 week history of diarrhea. States she was having 2-5 bowel movements per day. Denies blood in her stool. The patient states she has not had a single bowel movement in the last 24 hours, she believes it is because she has not had anything to eat. The patient reports that she will experience lower abdominal cramping followed by the need to have a bowel movement. Of note , the patient recently finished a course of Levaquin for acute bronchitis. Should the patient have an episode of diarrhea, will send for C. difficile testing. - Time Time Spent with patient: 15-24 minutes Medications reviewed and adjusted accordingly: Yes Anticipated discharge: Home Within: within 48 hours - Inpatient Certification Based on my medical assessment, after consideration of the patient's comorbidities, presenting symptoms, or acuity I expect that the services needed warrant INPATIENT care.: Yes I certify that my determination is in accordance with my understanding of Medicare's requirements for reasonable and necessary INPATIENT services [42 CFR 412.3e].: Yes Medical Necessity: Risk of Complication if Not Cared For in Hospital - Plan Summary Plan Summary: Currently, the plan is to complete the patient's cardiac workup. Appreciate recommendations from cardiology. Even if cardiac workup is negative, may need to consider EGD prior to patient's discharge.
--- NOTE | 2018-02-12 19:42 | XCELERA REPORT ---
[address] [address] Transthoracic Echocardiogram Report Name: FREDERICK BACH Age: 57 yrs Gender: Female : 1960 Patient Status: Inpatient Patient Location: [address] [place] [address] Study Date: 02/12/2018 03:28 PM Height: 65 in Weight: 306 lb BSA: 2.4 m2 Procedure: A complete two-dimensional transthoracic echocardiogram was performed (2D, M-mode, spectral and color flow Doppler). The study was technically difficult with many images being suboptimal in quality. Reason For Study: chest pain Ordering Physician: NISSA RIVERA Performed By: Dorita Jean Interpretation Summary The left ventricular ejection fraction is normal. The left ventricle is grossly normal size. There is borderline concentric left ventricular hypertrophy. Doppler measurements suggest pseudonormalized left ventricular relaxation, which is associated with grade II/IV or mild to moderate diastolic dysfunction Wall motion cannot be accurately commented on, but no definite regional wall motion abnormalities noted. The right ventricular systolic function is normal. The left atrial size is normal. The right atrium is normal in size There is a trace amount of mitral regurgitation There is no mitral valve stenosis. There is a trace amount of aortic regurgitation There is no aortic valve stenosis There is a trace to mild amount of tricuspid regurgitation Tricuspid regurgitation jet envelope not well defined to measure RV systolic pressure accurately. The aortic root is not well visualized but is probably normal size. The inferior vena cava appeared normal and decreased > 50% with respiration (RAP 5-10 mmHg) There is no pericardial effusion. MMode/2D Measurements & Calculations RVDd: 3.3 cm LVIDd: 5.0 cmFS: 32.6 % Ao root diam: 3.2 cm IVSd: 1.3 cm LVIDs: 3.4 cmEDV(Teich): 119.0 ml LVPWd: 1.4 cmESV(Teich): 46.8 ml Ao root area: 8.1 cm2 EF(Teich): 60.7 % LA dimension: 4.4 cm LVOT diam: 1.9 cm LVOT area: 2.9 cm2 Doppler Measurements & Calculations MV E max jaquelin: MV P1/2t max jaquelin: Ao V2 max: LV V1 max P.1 cm/sec 106.1 cm/sec 156.3 cm/sec 3.2 mmHg MV P1/2t: 39.2 msec Ao max PG: LV V1 max: MVA(P1/2t): 5.6 cm2 9.8 mmHg 89.5 cm/sec MV dec slope: ARON(V,D): 1.7 cm2 793.1 cm/sec2 PA V2 max: TR max jaquelin: 103.2 cm/sec 221.1 cm/sec PA max P.3 mmHgTR max P.5 mmHg Left Ventricle The left ventricle is grossly normal size. There is borderline concentric left ventricular hypertrophy. The left ventricular ejection fraction is normal. Doppler measurements suggest pseudonormalized left ventricular relaxation, which is associated with grade II/IV or mild to moderate diastolic dysfunction. Wall motion cannot be accurately commented on, but no definite regional wall motion abnormalities noted. Right Ventricle The right ventricle is grossly normal size. There is normal right ventricular wall thickness. The right ventricular systolic function is normal. Atria The right atrium is normal in size. The left atrial size is normal. Interarterial septum not well visualized and not well dopplered. Cannot comment on ASD/PFO presence. Mitral Valve The mitral valve is grossly normal. There is no mitral valve stenosis. There is a trace amount of mitral regurgitation. Aortic Valve The aortic valve is not well visualized secondary to technical limitations. There is no aortic valve stenosis. There is a trace amount of aortic regurgitation. Tricuspid Valve The tricuspid valve is not well visualized secondary to technical limitations. There is no tricuspid stenosis. There is a trace to mild amount of tricuspid regurgitation. Tricuspid regurgitation jet envelope not well defined to measure RV systolic pressure accurately. Pulmonic Valve The pulmonic valve is not well visualized. Great Vessels The aortic root is not well visualized but is probably normal size. The inferior vena cava appeared normal and decreased > 50% with respiration (RAP 5-10 mmHg). Effusions There is no pericardial effusion. : NISSA RIVERA > Rodolfo Batista
[2018-02-12] MEDS: DOXEPIN HCL 25 MG CAPSULE PO SCH (21:11)
[2018-02-12] MEDS: DULOXETINE HCL 30 MG CAPSULE.DR PO SCH (21:11)
[2018-02-12] MEDS: CARVEDILOL 12.5 MG TABLET PO SCH (21:11)
[2018-02-12] MEDS ORDERED: (PENDING PHARMACY ID) (Doxepin Hcl [Doxepin Hcl] 50 MG) PO SCH (22:00)
[2018-02-12] MEDS ORDERED: METOPROLOL SUCCINATE 50 MG TAB.SR.24H PO SCH (22:00)
[2018-02-12] MEDS ORDERED: ZOLPIDEM TARTRATE 5 MG TABLET PO PRN (23:39)
[2018-02-13 06:05] LABS: HEMATOCRIT 35.7 % (36.0-47.0); HEMOGLOBIN 11.8 g/dL (12.0-15.5); MEAN CORPUSCULAR HEMOGLOBIN 30.6 pg (27.0-33.4); MEAN CORPUSCULAR VOLUME 93 fl (80-97); PLATELET COUNT 217 10^3/uL (150-450); RED BLOOD COUNT 3.86 10^6/uL (3.72-5.28); RED CELL DISTRIBUTION WIDTH 16.1 % (11.5-14.0); WHITE BLOOD COUNT 5.6 10^3/uL (4.0-10.5)
[2018-02-13 06:21] LABS: ANION GAP 13 (5-19); BLOOD UREA NITROGEN 12 mg/dL (7-20); CALCIUM 9.4 mg/dL (8.4-10.2); CARBON DIOXIDE 30 mmol/L (22-30); CHLORIDE 99 mmol/L (98-107); GLUCOSE 154 mg/dL (75-110); PHOSPHORUS 3.3 mg/dL (2.5-4.5); POTASSIUM 3.7 mmol/L (3.6-5.0); SODIUM 141.6 mmol/L (137-145)
[2018-02-13] MEDS: LANSOPRAZOLE 30 MG TAB.RAP.DR PO SCH (08:24)
[2018-02-13] MEDS: ALPRAZOLAM 0.5 MG TABLET PO PRN ×2 (08:31→21:14)
--- NOTE | 2018-02-13 12:17 | PDOC PROGRESS REPORT ---
Subjective Progress Note for:: 02/13/18 Subjective:: Patient had a attempted pharmacologic nuclear stress test. Patient did complete the rest imaging. However for the nuclear stress imaging part, there was extravasation of the nuclear material, it was felt by the nuclear cardiology technologist that patient probably did not receive any stress dose. The test was then rescheduled by the radiology department for next day. Patient seems to be doing better with gradual improvement. Pt is denying any chest arm or neck discomfort. Patient denying any PND, orthopnea. Patient denied any sustained palpitations, dizziness, syncope, near syncope. Patient denying any fever chills. Patient denying any other significant discomfort. Patient is maintaining sinus rhythm. Review of systems: Rest review of systems negative. Medications: Medications have been reviewed. Reason For Visit: CHEST PAIN Physical Exam Vital Signs: Temp Pulse Resp BP Pulse Ox 98.4 F 91 18 140/83 H 99 02/13/18 11:52 02/13/18 11:52 02/13/18 11:52 02/13/18 11:52 02/13/18 11:52 Intake & Output 02/12/18 02/13/18 02/14/18 06:59 06:59 06:59 Intake Total 10 2620 Output Total 550 450 Balance -540 2170 Weight 139.2 kg Exam: GENERAL: well-nourished and in no acute distress. Alert and oriented x3 HEAD: Atraumatic, normocephalic. EYES: Pupils equal round and reactive to light, extraocular movements intact, sclera anicteric, conjunctiva are normal. ENT: TMs normal, nares patent, oropharynx clear without exudates. Moist mucous membranes. No oral ulcerations or bleeding gums noted NECK: supple without lymphadenopathy. Trachea is central. No cervical or axillary lymphadenopathy noted. Carotids are 2+, JVD WNL LUNGS: Respiration seems nonlabored, no significant accessory muscle action noted. Breath sounds clear to auscultation bilaterally and equal noted. No wheezes rales or rhonchi noted. No significant dullness noted on percussion. CHEST: Palpation of the chest wall shows no significant chest wall tenderness. No other significant abnormalities noted. 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 ABDOMEN: Soft, no significant tenderness appreciated, normoactive bowel sounds. No guarding, no rebound. No rigidity noted . No masses appreciated. EXTREMITIES: Pedal pulses are 1-2+, no calf tenderness noted. No clubbing or cyanosis. 1+ pedal edema noted NEUROLOGICAL: Focused neurological exam showed no significant neurologic deficit. Normal speech, no focal weakness appreciated. PSYCH: Normal mood, normal affect. Judgment and insight within normal limits. SKIN: No significant ecchymosis, skin is noted to be warm. MUSCULOSKELETAL EXAM: No significant acute joint swelling noted. Results Laboratory Results: 02/13/18 05:11 02/13/18 05:11 02/13/18 02/13/18 05:11 05:11 WBC 5.6 RBC 3.86 Hgb 11.8 L Hct 35.7 L MCV 93 MCH 30.6 MCHC 33.0 RDW 16.1 H Plt Count 217 Sodium 141.6 Potassium 3.7 Chloride 99 Carbon Dioxide 30 Anion Gap 13 BUN 12 Creatinine 0.65 Est GFR ( Amer) > 60 Est GFR (Non-Af Amer) > 60 Glucose 154 H Calcium 9.4 Phosphorus 3.3 Magnesium 1.6 02/12/18 02/12/18 02/12/18 02:27 09:06 14:30 Troponin I < 0.012 < 0.012 < 0.012 EKG Comments: Sinus rhythm without any sustained tachycardia or bradycardia Impressions: Chest X-Ray 02/11/18 14:26 IMPRESSION: NO ACUTE RADIOGRAPHIC FINDING IN THE CHEST. Assessment & Plan - Diagnosis (1) Chest pain Qualifiers: Chest pain type: unspecified Qualified Code(s): R07.9 - Chest pain, unspecified Is this a current diagnosis for this admission?: Yes (2) Diabetes Qualifiers: Diabetes mellitus type: type 2 Diabetes mellitus longterm insulin use: unspecified longterm insulin use status Diabetes mellitus complication status : with unspecified complications Qualified Code(s): E11.8 - Type 2 diabetes mellitus with unspecified complications (3) TAMIKA (obstructive sleep apnea) Is this a current diagnosis for this admission?: No (4) Morbid obesity with BMI of 50.0-59.9, adult Is this a current diagnosis for this admission?: Yes - Notes Notes: Chest pain: To be evaluated by a nuclear stress test. Patient to report any recurrence of chest pain. Patient stress part has been rescheduled for tomorrow. 2D echocardiogram results reviewed. Diabetes: Recommend good control of blood sugar. However should avoid any hypoglycemia and hyperglycemia. Patient being expertly managed by primary care MSheree/hospitalist Obstructive sleep apnea: Patient encouraged to use her CPAP machine during this hospitalization. Morbid obesity: Patient encouraged to lose weight. - Time Time with patient: Greater than 35 minutes - CODE STATUS was discussed, patient remains full code. Surrogate decision-maker unchanged. Multiple medical problems were addressed. More than 50% of the time spent coordinating care, discussing management plans with involved caregivers. Management plans discussed with involved personnels. Medical decision making was of moderate to high complexity, patient's has multiple comorbidities. Medications reviewed and adjusted accordingly: Yes
--- NOTE | 2018-02-13 12:20 | PDOC CONSULTATION ---
Consultation Consult Date: 02/12/18 Attending physician:: KIMBERLY PEREZ Consult reason:: Chest pain History of Present Illness Admission Date/PCP: 02/11/18 22:10 ED BEASLEY MD Patient complains of: Chest pain History of Present Illness: FREDERICK BACH is a 57 year old morbidly obese female with history of PE ( not on anticoagulation), pericardial effusion (post pericardiocentesis 3 years ago), obstructive sleep apnea (? CPAP) and chronic CHF was sent from her ENT physician's office after she complained of having chest pain. According to the patient, she has been having sharp chest pain intermittently for the last couple of years but it has been getting more persistent recently. She started having some chest pain yesterday around 5 PM while at rest. The episode lasted about 20 minutes with no alleviating factors but coughing made it worse. The pain was radiating to her jaw and through to her back and underneath her left breast. It was associated with shortness of breath, diaphoresis, nausea but no vomiting, palpitations and presyncope. She had similar episode at her ENT physician's office this afternoon around 1:30 PM. The episode lasted about 30 minutes and she rated thet pain as 6/10 in intensity. She received 1 sublingual nitro and 4 baby aspirins en route to the hospital. The patient apparently had a scheduled appointment with ENT today since she has been complaining of having "dysphagia". She reported having intermittent fevers and chills with cough and yellowish, blood tinged sputum intermittently, no sick contact. She was recently diagnosed with acute bronchitis and was given 10 days of Levaquin which she finished a week ago. Of note, according to her daughter the patient complained of chest pain and feeling presyncopal last week. She was seen at her PCP's office who switched her from metoprolol twice a day to once a day and added another BP medication (not sure which one). She also complained of right-sided abdominal discomfort and recent diarrhea. She has been having 3-4 bowel movements a day of liquid, nonbloody stool. She thinks that her urine output has decreased since she started having diarrhea. She complains of feeling generalized weakness. She usually ambulates using a walker since she has "weak knees". In the ED, her temperature was 98.9, heart rate 5, respiratory rate 21, blood pressure 145/100 with oxygen saturation of 95% on room air. WBC was 6.1 with hemoglobin of 12.4. She received 1 inch of 2% Nitropaste and 3 doses of 10 mg IV labetalol in addition to 25 mg metoprolol 1 since her blood pressure was up to 182/119. The patient currently is rating her chest pain at 5/10. This history was reviewed and confirmed. Patient describes an attempt at heart cath in [place] about 6 months ago but could never be completed. However history is somewhat vague. Will try to obtain those records. Patient describes multiple admission to the hospital due to CHF. Past Medical History Cardiac Medical History: Reports: Congestive Heart Failure - Diastolic, Hypertension, Pulmonary Embolism Denies: Atrial Fibrillation, Coronary Artery Disease, DVT, Myocardial Infarction, Hyperlipidema Pulmonary Medical History: Reports: Chronic Obstructive Pulmonary Disease (COPD) , Sleep Apnea - Uncertain CPAP pressure setting. No home oxygen. Denies: Asthma, Tuberculosis Neurological Medical History: Denies: Seizures Endocrine Medical History: Denies: Diabetes Mellitus Type 1, Diabetes Mellitus Type 2, Hyperthyroidism, Hypothyroidism GI Medical History: Reports: Gastroesophageal Reflux Disease Denies: Cirrhosis, Hepatitis Musculoskeltal Medical History: Reports: Arthritis Psychiatric Medical History: Reports: Depression Past Surgical History Past Surgical History: Reports: Cholecystectomy, Mastectomy - L lumpectomy x2 and R lumpectomy x1 (begnin per patient)., Orthopedic Surgery - Left anterior cruciate ligament repair; left knee replacement., Other - Pericardiocentesis 3 years ago in [place] to drain an effusion. Social History Information Source: Patient Lives with: Spouse/Significant other Smoking Status: Never Smoker Frequency of Alcohol Use: None Hx Recreational Drug Use: No Drugs: None Hx Prescription Drug Abuse: No - Advance Directive Resuscitation Status: Full Code Surrogate healthcare decision maker:: Patient's daughter is the surrogate decision-maker Family History Family History: Arthritis, Hypertension, Malignancy, Thyroid Disfunction Parental Family History Reviewed: Yes Children Family History Reviewed: Yes Sibling(s) Family History Reviewed.: Yes Medication/Allergy Home Medications: Alprazolam [Xanax] 1 mg PO Q8 02/12/18 Carvedilol [Coreg 12.5 mg Tablet] 12.5 mg PO Q12 02/12/18 Cyclobenzaprine HCl [Flexeril 5 mg Tablet] 5 mg PO Q8 02/12/18 Doxepin HCl 50 mg PO QHS 02/12/18 Duloxetine HCl [Cymbalta] 60 mg PO Q12 02/12/18 Furosemide [Lasix 40 mg Tablet] 40 mg PO BID 02/12/18 Imipramine HCl [Tofranil] 50 mg PO TID 02/12/18 Isosorbide Mononitrate [Imdur 30 mg Tablet.er] 30 mg PO DAILY 02/12/18 Lisinopril [Zestril] 40 mg PO DAILY 02/12/18 Lurasidone HCl [Latuda] 80 mg PO DAILY 02/12/18 Meloxicam [Mobic] 7.5 mg PO BID 02/12/18 Metoprolol Succinate [Toprol Xl 50 mg Tab.sr] 50 mg PO Q12 02/12/18 Ranitidine HCl [Zantac 150 mg Tablet] 150 mg PO DAILY 02/12/18 Spironolactone [Aldactone 25 mg Tablet] 25 mg PO Q12 02/12/18 Tramadol HCl [Ultram 50 mg Tablet] 50 mg PO Q8 02/12/18 Allergies/Adverse Reactions: No Known Drug Allergies Allergy (Verified 06/10/17 17:16) tomato [Tomato] Allergy (Verified 06/10/17 17:16) Review of Systems Review of Systems: Please see history of present illness and past medical history as wall. Constitutional: No fever or chills reported. Head : No recent chronic headaches, recent head injury. Eyes: No recent eye pain, diplopia, redness, discharge, acute visual changes. Ears: No recent chronic ear pain, acute hearing loss, ear discharge. Oral cavity: No recent ulcerations, bleeding, oral cavity discomfort. Neck: No recent acute neck pain reported. Hematologic: No recent easy bruising or bleeding or hematologic malignancy reported. Lymphatic: No recent lymphatic malignancy, chronic lymphadenopathy reported yet Cardiovascular system review: See history of present illness. Respiratory system review: No recent chronic cough, hemoptysis, blood clots in the lungs reported. Mild Shortness of breath on exertion Gastrointestinal system review: Negative for any recent acute or chronic abdominal pain, hematemesis, melena, recent change in bowel habits. Genitourinary system review: No recent acute or chronic hematuria, flank pain, UTI etc. reported. Skin system review: Negative for any recent abnormal bruising, no rash, no pruritus reported. Neurologic: No prior history of strokes, mini strokes, seizure disorder. Psychologic: No history of major psychosis or major depression reported. Musculoskeletal: Minor aches and pains reported. No acute joint swelling reported. Endocrine: No recent polyuria, polydipsia, recent heat or cold intolerance. Physical Exam Vital Signs: Temp Pulse Resp BP Pulse Ox 97.8 F 92 18 128/78 H 95 02/12/18 16:00 02/12/18 19:00 02/12/18 16:00 02/12/18 16:00 02/12/18 16:00 Intake & Output 02/11/18 02/12/18 02/13/18 06:59 06:59 06:59 Intake Total 10 2260 Output Total 550 Balance -540 2260 Weight 139.2 kg Exam: GENERAL: well-nourished and in no acute distress. Alert and oriented x3 HEAD: Atraumatic, normocephalic. EYES: Pupils equal round and reactive to light, extraocular movements intact, sclera anicteric, conjunctiva are normal. ENT: TMs normal, nares patent, oropharynx clear without exudates. Moist mucous membranes. No oral ulcerations or bleeding gums noted NECK: supple without lymphadenopathy. Trachea is central. No cervical or axillary lymphadenopathy noted. Carotids are 2+, JVD WNL LUNGS: Respiration seems nonlabored, no significant accessory muscle action noted. Breath sounds clear to auscultation bilaterally and equal noted. No wheezes rales or rhonchi noted. No significant dullness noted on percussion. CHEST: Palpation of the chest wall shows no significant chest wall tenderness. No other significant abnormalities noted. 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 ABDOMEN: Soft, no significant tenderness appreciated, normoactive bowel sounds. No guarding, no rebound. No rigidity noted . No masses appreciated. EXTREMITIES: Pedal pulses are 1-2+, no calf tenderness noted. No clubbing or cyanosis.trace to 1+ pedal edema noted NEUROLOGICAL: Focused neurological exam showed no significant neurologic deficit. Normal speech, no focal weakness appreciated. PSYCH: Normal mood, normal affect. Judgment and insight within normal limits. SKIN: No significant ecchymosis, skin is noted to be warm. MUSCULOSKELETAL EXAM: No significant acute joint swelling noted. Results Laboratory Results: 02/12/18 02:27 02/12/18 02:27 02/12/18 02/12/18 02/12/18 02:27 02:27 02:27 WBC 5.8 RBC 3.90 Hgb 11.9 L Hct 36.0 MCV 92 MCH 30.4 MCHC 33.0 RDW 16.2 H Plt Count 203 Sodium 143.9 Potassium 3.2 L Chloride 103 Carbon Dioxide 33 H Anion Gap 8 BUN 11 Creatinine 0.71 Est GFR ( Amer) > 60 Est GFR (Non-Af Amer) > 60 Glucose 129 H Calcium 9.0 Magnesium 1.4 L 02/12/18 02/12/18 02/12/18 02:27 09:06 14:30 Troponin I < 0.012 < 0.012 < 0.012 EKG Comments: Sinus rhythm without any acute ST-T wave changes. Impressions: Chest X-Ray 02/11/18 14:26 IMPRESSION: NO ACUTE RADIOGRAPHIC FINDING IN THE CHEST. Assessment & Plan - Diagnosis (1) Chest pain Qualifiers: Chest pain type: unspecified Qualified Code(s): R07.9 - Chest pain, unspecified Is this a current diagnosis for this admission?: Yes (2) Diabetes Qualifiers: Diabetes mellitus type: type 2 Diabetes mellitus alf insulin use: unspecified alf insulin use status Diabetes mellitus complication status : with unspecified complications Qualified Code(s): E11.8 - Type 2 diabetes mellitus with unspecified complications Is this a current diagnosis for this admission?: Yes (3) TAMIKA (obstructive sleep apnea) Is this a current diagnosis for this admission?: Yes (4) Morbid obesity with BMI of 50.0-59.9, adult Is this a current diagnosis for this admission?: Yes - Notes Notes: Chest pain: Patient has some typical and atypical features of chest pain. Cardiac enzymes so far has been negative. Electrocardiogram did not show any definitive ST segment changes. Multiple differential diagnoses exist in this patient. In descending order of probability this includes underlying coronary artery disease, gastroesophageal reflux, musculoskeletal pain, referred pain from elsewhere, anxiety panic disorder etc.Patient has significant cardiac risk factors, which indicates that there is a intermediate probability of chest discomfort coming from underlying CAD. Feel that it would need to be evaluated further. Discussed evaluation to assess this. In this regard risk benefits of nuclear stress test and other alternative processes were discussed in detail. The patient prefers to undergo nuclear stress test. The small risk of radiation , myocardial infarction, , cardiac arrhythmias, respiratory distress etc. were discussed. Patient understood the risks and gave informed consent. Nuclear stress test was therefore scheduled. For risk evaluation, patient is also being scheduled for a 2-D echocardiogram. Patient questions were answered. Diabetes: Recommend good control of blood sugar. However should avoid any hypoglycemia and hyperglycemia. Patient being expertly managed by primary care M.D/hospitalist Sleep apnea: Patient encouraged in weight loss and compliance with CPAP therapy. Briefly discussed side effects of untreated sleep apnea. Obesity: Patient encouraged in weight loss. Also recommend empiric proton pump therapy as patient likely also to have gastroesophageal reflux. - Time Time Spent: 30 to 50 Minutes - CODE STATUS was discussed, patient remains full code. Surrogate decision-maker unchanged. Multiple medical problems were addressed. More than 50% of the time spent coordinating care, discussing management plans with involved caregivers. Management plans discussed with involved personnels. Medical decision making was of moderate to high complexity , patient's has multiple comorbidities. Medications reviewed and adjusted accordingly: Yes
[2018-02-13] MEDS: DULOXETINE HCL 30 MG CAPSULE.DR PO SCH ×2 (13:02→21:14)
[2018-02-13] MEDS: ENOXAPARIN SODIUM INJ 40 MG/0.4 ML DISP.SYRIN SUBCUT SCH (13:02)
[2018-02-13] MEDS: CARVEDILOL 12.5 MG TABLET PO SCH ×2 (13:03→21:16)
[2018-02-13] MEDS: LISINOPRIL 10 MG TABLET PO SCH (13:04)
[2018-02-13] MEDS: ISOSORBIDE MONONITRATE 30 MG TAB.ER.24H PO SCH (13:04)
[2018-02-13] MEDS: IMIPRAMINE HCL 25 MG TABLET PO SCH ×3 (13:05→17:59)
[2018-02-13] MEDS: LURASIDONE HCL 40 MG TABLET PO SCH (13:06)
[2018-02-13] MEDS: HYDRALAZINE HCL INJ/PF 20 MG/1 ML SDV IV PRN (16:37)
--- NOTE | 2018-02-13 18:15 | PDOC PROGRESS REPORT ---
Subjective Progress Note for:: 02/13/18 Subjective:: FREDERICK BACH is a 57 year old female sent to the emergency department from her ENT physician's office after complaining of chest pain. Of note, the patient was recently treated for acute bronchitis and was given 10 days of Levaquin which she finished 1 week ago. Additionally the patient has a history of PE (not on anticoagulation), pericardial effusion (post pericardiocentesis 3 years ago). Additional PMH includes TAMIKA, CHF, morbid obesity. The patient was seen this morning on rounds. Once again, the patient states she experienced an episode of chest pain earlier this morning but did not inform the nursing staff, she states the sharp L sided chest pain lasted approximately 11 minutes and resolved on it's own. Nursing staff reports that around this time the patient experienced tachycardia (HR 130s) and diaphoresis. Although, the patient never reported to staff that she was experiencing chest pain. The patient was strongly urged to notify staff the next time she experiences an episode of chest pain. This is the second day in a row of an episode like this occurring. Patient was informed that given her significant past medical history , she is at high risk for a cardiac event and that it is in her best interest to notify staff when she is experiencing chest pain. Reason For Visit: CHEST PAIN Physical Exam Vital Signs: Temp Pulse Resp BP Pulse Ox 97.3 F 110 H 18 187/93 H 97 02/13/18 16:00 02/13/18 16:00 02/13/18 16:00 02/13/18 16:00 02/13/18 16:00 Intake & Output 02/12/18 02/13/18 02/14/18 06:59 06:59 06:59 Intake Total 10 2620 Output Total 550 450 Balance -540 2170 Weight 139.2 kg General appearance: PRESENT: no acute distress Head exam: PRESENT: atraumatic Eye exam: PRESENT: conjunctiva pink Mouth exam: PRESENT: moist Neck exam: PRESENT: full ROM Respiratory exam: PRESENT: clear to auscultation pierre, symmetrical, unlabored Cardiovascular exam: PRESENT: +S1, +S2 Pulses: PRESENT: normal radial pulses, +1 pedal pulses bilateral GI/Abdominal exam: PRESENT: normal bowel sounds, soft Rectal exam: PRESENT: deferred Extremities exam: PRESENT: full ROM Musculoskeletal exam: PRESENT: ambulatory, full ROM Neurological exam: PRESENT: alert, awake, oriented to person, oriented to place , oriented to time, oriented to situation Psychiatric exam: PRESENT: appropriate affect Skin exam: PRESENT: normal color Results Laboratory Results: 02/13/18 05:11 02/13/18 05:11 02/13/18 02/13/18 05:11 05:11 WBC 5.6 RBC 3.86 Hgb 11.8 L Hct 35.7 L MCV 93 MCH 30.6 MCHC 33.0 RDW 16.1 H Plt Count 217 Sodium 141.6 Potassium 3.7 Chloride 99 Carbon Dioxide 30 Anion Gap 13 BUN 12 Creatinine 0.65 Est GFR ( Amer) > 60 Est GFR (Non-Af Amer) > 60 Glucose 154 H Calcium 9.4 Phosphorus 3.3 Magnesium 1.6 02/12/18 02/12/18 02/12/18 02:27 09:06 14:30 Troponin I < 0.012 < 0.012 < 0.012 Impressions: Chest X-Ray 02/11/18 14:26 IMPRESSION: NO ACUTE RADIOGRAPHIC FINDING IN THE CHEST. Status: Imported from PACS Assessment & Plan - Diagnosis (1) Chest pain Qualifiers: Chest pain type: unspecified Qualified Code(s): R07.9 - Chest pain, unspecified Is this a current diagnosis for this admission?: Yes Plan: Unclear etiology -cardiac versus GI versus pleuritic etiology. Serial cardiac enzymes negative, no longer trending d-dimer 0.52, consider chest CT if patient continues to experience chest pain. Of note, CTA from was negative for PE. Confirmed dx of hiatal hernia and GERD 1 month ago, continue prevacid ECHOcardiogram done, LVEF normal. Grade II diastolic dysfunction. Stress test pending. If results are negative, may need to consider EGD (2) Hypertensive urgency Is this a current diagnosis for this admission?: Yes Plan: Improving. Restarted patient's home antihypertensives and added Norvasc 10mg QHS for better blood pressure control. PRN hydralazine IV. (3) Morbid obesity with BMI of 50.0-59.9, adult Is this a current diagnosis for this admission?: No Plan: Patient's BMI is 51.1 - which qualifies as MORBID obesity. Diligence will be required to ensure that the patient's takes a heart healthy diet. Appreciate nutrition recommendations. (4) Diarrhea Qualifiers: Diarrhea type: unspecified type Qualified Code(s): R19.7 - Diarrhea, unspecified Is this a current diagnosis for this admission?: Yes Plan: Improving. The patient was previously endorsing a history of diarrhea, however she denies having diarrhea since being admitted to [facility]. C. difficile negative. - Time Time Spent with patient: 15-24 minutes Medications reviewed and adjusted accordingly: Yes Anticipated discharge: Home Within: within 24 hours - Inpatient Certification Based on my medical assessment, after consideration of the patient's comorbidities, presenting symptoms, or acuity I expect that the services needed warrant INPATIENT care.: Yes I certify that my determination is in accordance with my understanding of Medicare's requirements for reasonable and necessary INPATIENT services [42 CFR 412.3e].: Yes Medical Necessity: Risk of Complication if Not Cared For in Hospital - Plan Summary Plan Summary: Complete cardiac stress test in the morning. 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
[2018-02-13] MEDS: DOXEPIN HCL 25 MG CAPSULE PO SCH (21:14)
[2018-02-13] MEDS: AMLODIPINE BESYLATE 10 MG TABLET PO SCH (21:14)
--- NOTE | 2018-02-13 21:59 | EKG REPORT ---
SEVERITY:- ABNORMAL ECG - SINUS RHYTHM ABNRM R PROG, CONSIDER ASMI OR LEAD PLACEMENT BORDERLINE PROLONGED QT INTERVAL : Confirmed by: Rodolfo Batista 13-Feb-2018 21:58:55
[2018-02-14] MEDS: HYDRALAZINE HCL INJ/PF 20 MG/1 ML SDV IV PRN (04:43)
[2018-02-14] MEDS: LANSOPRAZOLE 30 MG TAB.RAP.DR PO SCH (07:21)
[2018-02-14 08:36] LABS: ABSOLUTE LYMPHOCYTES (AUTO) 2.2 10^3/uL (0.5-4.7); ABSOLUTE MONOCYTES (AUTO) 0.5 10^3/uL (0.1-1.4); ABSOLUTE NEUT (AUTO) 2.8 10^3/uL (1.7-8.2); BASOPHILS % (AUTO) 0.6 % (0-2); EOSINOPHILS % (AUTO) 0.1 % (0-6); HEMOGLOBIN 11.4 g/dL (12.0-15.5); LYMPHOCYTES % (AUTO) 39.9 % (13-45); MEAN CORPUSCULAR HEMOGLOBIN 30.6 pg (27.0-33.4); MEAN CORPUSCULAR HGB CONC 32.6 g/dL (32.0-36.0); MEAN CORPUSCULAR VOLUME 94 fl (80-97); MONOCYTES % (AUTO) 8.8 % (3-13); PLATELET COUNT 240 10^3/uL (150-450); RED BLOOD COUNT 3.73 10^6/uL (3.72-5.28); RED CELL DISTRIBUTION WIDTH 16.4 % (11.5-14.0); SEGMENTED NEUTROPHILS % (AUTO) 50.6 % (42-78); TOTAL CELLS COUNTED % (AUTO) 100 %; WHITE BLOOD COUNT 5.5 10^3/uL (4.0-10.5)
[2018-02-14 08:53] LABS: ANION GAP 9 (5-19); BLOOD UREA NITROGEN 9 mg/dL (7-20); CALCIUM 9.9 mg/dL (8.4-10.2); CARBON DIOXIDE 31 mmol/L (22-30); CHLORIDE 102 mmol/L (98-107); GLUCOSE 144 mg/dL (75-110); POTASSIUM 3.7 mmol/L (3.6-5.0); SODIUM 141.5 mmol/L (137-145)
--- NOTE | 2018-02-14 09:10 | EKG REPORT ---
SEVERITY:- BORDERLINE ECG - SINUS RHYTHM BORDERLINE R WAVE PROGRESSION, ANTERIOR LEADS BORDERLINE T ABNORMALITIES, ANT-LAT LEADS : Confirmed by: Rodolfo Batista 14-Feb-2018 09:09:57
[2018-02-14] MEDS: CARVEDILOL 12.5 MG TABLET PO SCH ×2 (09:55→21:58)
[2018-02-14] MEDS: DULOXETINE HCL 30 MG CAPSULE.DR PO SCH ×2 (09:55→21:58)
[2018-02-14] MEDS: ISOSORBIDE MONONITRATE 30 MG TAB.ER.24H PO SCH (09:55)
[2018-02-14] MEDS: IMIPRAMINE HCL 25 MG TABLET PO SCH ×3 (09:55→17:31)
[2018-02-14] MEDS: ENOXAPARIN SODIUM INJ 40 MG/0.4 ML DISP.SYRIN SUBCUT SCH (09:55)
[2018-02-14] MEDS: LURASIDONE HCL 40 MG TABLET PO SCH (09:56)
[2018-02-14] MEDS: LISINOPRIL 10 MG TABLET PO SCH (09:56)
--- NOTE | 2018-02-14 13:07 | DRAGON STRESS TEST REPORT ---
INTRAVENOUS LEXISCAN CARDIOLITE STRESS TEST USING SINGLE PHOTON EMMISION COMPUTERIZED TOMOGRAPHIC. DATE OF PROCEDURE: February 14, 2018, INDICATION : Chest pain CARDIAC RISK FACTORS: Hypertension RESTING EKG: Sinus rhythm with some minor nonspecific ST-T wave changes STRESS EKG: No significant ST segment changes noted with LexiScan bolus REASON FOR TERMINATION: Protocol. PROCEDURE REPORT: Baseline heart rate 93 beats per minute with blood pressure of 166/108. Patient had no significant complaints. Patient was bolused with Lexiscan 0.4 mg intravenously followed by saline bolus. Heart rate at 2 minutes post bolus 95 with a blood pressure of 197/104. 3 minutes post bolus heart rate 93 with blood pressure of 193/100. No significant EKG changes were noted. Patient had no significant complaints during the procedure or postprocedure. Patient injected with Aminophyllin 75 mg at 3 minutes or later after Lexiscan bolus. CONCLUSIONS: Normal EKG and hemodynamic response to IV LexiScan. NUCLEAR DATA: At rest the patient was given 16.12 millicuries of technetium 99 sestamibi injected intravenously. As per protocol rest gated SPECT images were obtained. On day of stress test, the patient was given intravenous LexiScan at a dose of 0.4 mg in 5 mL intravenously, followed by flush with normal saline. Subsequently the stress dose of 47.5 millicuries of technetium 99 sestamibi was injected intravenously. As per protocol stress gated images were obtained. NUCLEAR INTERPRETATION: Both raw and processed data were used for interpretation. Visual, qualitative, computer-generated quantitative data was used. There was good myocardial uptake of technetium compound. Motion artifact and soft tissue attenuations were noted. Increased visceral uptake was noted. Significant breast and other soft tissue attenuation noted. No definitive areas of transient perfusion defect noted except for a very small area of mild ischemia in the distal inferolateral wall. It is only 2 out of 20 segment therefore possibly not significant. Clinical correlation is requested. No definitive areas of fixed perfusion defect or scars noted. EKG gated imaging showed LV EF at 36 %, rest and stress gated EF similar visually. Possibly falsely low as gating problem is suspected. T. I D. ratio was 0.88. Lung heart ratio noted to be within normal limits 0.25. No significant extracardiac and abnormal radiotracer activities were noted. RV free wall uptake was noted to be WNL. IMPRESSION: Also refer to comments under nuclear interpretation. Also test results needs to be interpreted in the context of pretest probability. 1. No definitive areas of transient perfusion defect noted except for a very small area of mild ischemia in the distal inferolateral wall. It is only 2 out of 20 segment therefore possibly not significant. Clinical correlation is requested. 2. There is no definitive scintigraphic evidence of myocardial infarction/scar. 3. EKG gated imaging shows left ventricular ejection fraction of approx. 36 %. Believe this is falsely low as gating problem is suspected. 4. Clinical correlation requested as occasionally single vessel disease or balanced ischemia could be missed. In approximately 10% of the cases Lexiscan may not cause adequate vasodilatory stress. RECOMMENDATIONS: Aggressive risk factor modification and medical management. Further evaluation may be needed if continued symptoms or other high risk indicators are noted on clinical evaluation. Close cardiology follow-up is also recommended. Clinical correlation with echocardiogram derived ejection fraction. Inability to exercise by itself can lead to increased cardiovascular event risks. Consider cardiology consultation and or follow-up if clinically indicated. I am available for cardiology evaluation and consultation if requested by the geophysical data technician, unless patient already has a fence manufacture supervisor. RACHEL
--- NOTE | 2018-02-14 14:18 | PDOC PROGRESS REPORT ---
Subjective Progress Note for:: 02/14/18 Subjective:: Yesterday patient had a attempted pharmacologic nuclear stress test. Patient did complete the rest imaging. However for the nuclear stress imaging part, there was extravasation of the nuclear material, it was felt by the ophthalmic medical technologist that patient probably did not receive any stress dose. The nuclear stress test was therefore completed today without any complications. Patient claims to be overall feeling better. Patient seems to be doing better with gradual improvement. Pt is denying any chest arm or neck discomfort. Patient denying any PND, orthopnea. Patient denied any sustained palpitations, dizziness, syncope, near syncope. Patient denying any fever chills. Patient denying any other significant discomfort. Patient is maintaining sinus rhythm. Review of systems: Rest review of systems negative. Medications: Medications have been reviewed. Reason For Visit: CHEST PAIN Physical Exam Vital Signs: Temp Pulse Resp BP Pulse Ox 98.1 F 104 H 16 138/90 H 97 02/14/18 11:17 02/14/18 11:17 02/14/18 11:17 02/14/18 11:17 02/14/18 11:17 Intake & Output 02/13/18 02/14/18 02/15/18 06:59 06:59 06:59 Intake Total 2620 2140 Output Total 450 Balance 2170 2140 Exam: GENERAL: well-nourished and in no acute distress. Alert and oriented x3 HEAD: Atraumatic, normocephalic. EYES: Pupils equal round and reactive to light, extraocular movements intact, sclera anicteric, conjunctiva are normal. ENT: TMs normal, nares patent, oropharynx clear without exudates. Moist mucous membranes. No oral ulcerations or bleeding gums noted NECK: supple without lymphadenopathy. Trachea is central. No cervical or axillary lymphadenopathy noted. Carotids are 2+, JVD WNL LUNGS: Respiration seems nonlabored, no significant accessory muscle action noted. Breath sounds clear to auscultation bilaterally and equal noted. No wheezes rales or rhonchi noted. No significant dullness noted on percussion. CHEST: Palpation of the chest wall shows no significant chest wall tenderness. No other significant abnormalities noted. 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 ABDOMEN: Soft, no significant tenderness appreciated, normoactive bowel sounds. No guarding, no rebound. No rigidity noted . No masses appreciated. EXTREMITIES: Pedal pulses are 1-2+, no calf tenderness noted. No clubbing or cyanosis.trace to 1+ pedal edema noted NEUROLOGICAL: Focused neurological exam showed no significant neurologic deficit. Normal speech, no focal weakness appreciated. PSYCH: Normal mood, normal affect. Judgment and insight within normal limits. SKIN: No significant ecchymosis, skin is noted to be warm. MUSCULOSKELETAL EXAM: No significant acute joint swelling noted. Results Laboratory Results: 02/14/18 08:04 02/14/18 08:04 02/14/18 02/14/18 08:04 08:04 WBC 5.5 RBC 3.73 Hgb 11.4 L Hct 35.0 L MCV 94 MCH 30.6 MCHC 32.6 RDW 16.4 H Plt Count 240 Seg Neutrophils % 50.6 Lymphocytes % 39.9 Monocytes % 8.8 Eosinophils % 0.1 Basophils % 0.6 Absolute Neutrophils 2.8 Absolute Lymphocytes 2.2 Absolute Monocytes 0.5 Absolute Eosinophils 0.0 Absolute Basophils 0.0 Sodium 141.5 Potassium 3.7 Chloride 102 Carbon Dioxide 31 H Anion Gap 9 BUN 9 Creatinine 0.59 Est GFR ( Amer) > 60 Est GFR (Non-Af Amer) > 60 Glucose 144 H Calcium 9.9 Phosphorus 3.0 Magnesium 1.5 L 02/12/18 02/12/18 02/12/18 02:27 09:06 14:30 Troponin I < 0.012 < 0.012 < 0.012 EKG Comments: Telemetry shows sinus rhythm without any sustained tachycardia or bradycardia Impressions: Chest X-Ray 02/11/18 14:26 IMPRESSION: NO ACUTE RADIOGRAPHIC FINDING IN THE CHEST. 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 Nuclear stress test results were fairly unremarkable except for a very small area, 2 out of 20 segment which showed mild decreased uptake. [place] to be clinically not significant and could well be artifactual in view of taking into consideration patient's body habitus. Also EKG gated imaging ejection fraction was noted to be falsely low. 2D echocardiogram results reviewed. Patient here being recommended aggressive risk factor modification and medical management. Patient to report any recurrence of chest pain. Diabetes: Recommend good control of blood sugar. However should avoid any hypoglycemia and hyperglycemia. Patient being expertly managed by primary care M.D/hospitalist Obstructive sleep apnea: Patient encouraged to use her CPAP machine during this hospitalization. Morbid obesity: Patient encouraged to lose weight. - Time Time with patient: Greater than 35 minutes - Patient was seen multiple times. Total time exceeds 40 minutes. In the morning nuclear stress test procedure, risks benefits, alternatives were again discussed. Patient seen during the stress test. Patient also seen after stress test when results were discussed with the patient in detail. Patient's questions were answered. Nuclear stress test results were discussed with the patient. Patient was informed that no definitive evidence of pharmacologic stress-induced ischemia noted except for a very small area which in my opinion is questionable. No definite fixed defects were noted. Patient informed that occasionally significant single vessel disease or balanced ischemia could be missed. However based on the current study results, would recommend aggressive risk factor modification and medical therapy. It may also be worthwhile to consider evaluation or empiric management of other causes of chest pain. Should no other cause be found and if persistent in having chest pain, then cardiac catheterization should be considered. Right now, recommendations are for aggressive risk factor modification and medical management. More than 50% of the time spent coordinating care, discussing management plans with involved caregivers. Management plans discussed with involved personnels. Medical decision making was of moderate to high complexity, patient's has multiple comorbidities. Medications reviewed and adjusted accordingly: Yes
[2018-02-14] MEDS ORDERED: AMINOPHYLLINE INJ/PF 250 MG/10 ML SDV IV ONE (15:47)
[2018-02-14] MEDS ORDERED: REGADENOSON INJ 0.4 MG/5 ML DISP.SYRIN IV ONE (15:47)
--- NOTE | 2018-02-14 21:05 | PDOC PROGRESS REPORT ---
Subjective Progress Note for:: 02/14/18 Subjective:: FREDERICK BACH is a 57 year old female sent to the emergency department from her ENT physician's office after complaining of chest pain. Of note, the patient was recently treated for acute bronchitis and was given 10 days of Levaquin which she finished 1 week ago. Additionally the patient has a history of PE (not on anticoagulation), pericardial effusion (post pericardiocentesis 3 years ago). Additional PMH includes TAMIKA, CHF, morbid obesity. The patient was seen this morning on rounds following her Cardiolite stress test. She denies complaints at this time, states she has not had another episode of chest pain. Reason For Visit: CHEST PAIN Physical Exam Vital Signs: Temp Pulse Resp BP Pulse Ox 98.1 F 92 16 152/76 H 100 02/14/18 19:35 02/14/18 19:35 02/14/18 19:35 02/14/18 19:35 02/14/18 19:35 Intake & Output 02/13/18 02/14/18 02/15/18 06:59 06:59 06:59 Intake Total 2620 2140 430 Output Total 450 Balance 2170 2140 430 General appearance: PRESENT: no acute distress, morbidly obese Eye exam: PRESENT: conjunctiva pink Mouth exam: PRESENT: moist Neck exam: PRESENT: full ROM Respiratory exam: PRESENT: clear to auscultation pierre, symmetrical, unlabored Cardiovascular exam: PRESENT: +S1, +S2, tachycardia Pulses: PRESENT: normal radial pulses, normal dorsalis pedis pul GI/Abdominal exam: PRESENT: normal bowel sounds, soft Rectal exam: PRESENT: deferred Extremities exam: PRESENT: full ROM Musculoskeletal exam: PRESENT: ambulatory, full ROM Neurological exam: PRESENT: alert, awake, oriented to person, oriented to place , oriented to time, oriented to situation Psychiatric exam: PRESENT: appropriate affect Results Laboratory Results: 02/14/18 08:04 02/14/18 08:04 02/14/18 02/14/18 08:04 08:04 WBC 5.5 RBC 3.73 Hgb 11.4 L Hct 35.0 L MCV 94 MCH 30.6 MCHC 32.6 RDW 16.4 H Plt Count 240 Seg Neutrophils % 50.6 Lymphocytes % 39.9 Monocytes % 8.8 Eosinophils % 0.1 Basophils % 0.6 Absolute Neutrophils 2.8 Absolute Lymphocytes 2.2 Absolute Monocytes 0.5 Absolute Eosinophils 0.0 Absolute Basophils 0.0 Sodium 141.5 Potassium 3.7 Chloride 102 Carbon Dioxide 31 H Anion Gap 9 BUN 9 Creatinine 0.59 Est GFR ( Amer) > 60 Est GFR (Non-Af Amer) > 60 Glucose 144 H Calcium 9.9 Phosphorus 3.0 Magnesium 1.5 L 02/12/18 02/12/18 02/12/18 02:27 09:06 14:30 Troponin I < 0.012 < 0.012 < 0.012 Impressions: Chest X-Ray 02/11/18 14:26 IMPRESSION: NO ACUTE RADIOGRAPHIC FINDING IN THE CHEST. Status: Imported from PACS Assessment & Plan - Diagnosis (1) Chest pain Qualifiers: Chest pain type: unspecified Qualified Code(s): R07.9 - Chest pain, unspecified Is this a current diagnosis for this admission?: Yes Plan: Unclear etiology -cardiac versus GI versus pleuritic etiology. Serial cardiac enzymes negative, no longer trending d-dimer 0.52, plan for chest CTA in light of recurrent episodes of chest pain and persistent tachycardia, CTA from was negative for PE. Confirmed dx of hiatal hernia and GERD 1 month ago, continue prevacid ECHOcardiogram done, LVEF normal. Grade II diastolic dysfunction. Stress test pending. If CTA results are negative, may need to consider EGD (2) Hypertensive urgency Is this a current diagnosis for this admission?: Yes Plan: Improving. Restarted patient's home antihypertensives and increase dose of Carvedilol for better blood pressure control. PRN hydralazine IV. (3) Morbid obesity with BMI of 50.0-59.9, adult Is this a current diagnosis for this admission?: No Plan: Patient's BMI is 51.1 - which qualifies as MORBID obesity. Diligence will be required to ensure that the patient's takes a heart healthy diet. (4) Diarrhea Qualifiers: Diarrhea type: unspecified type Qualified Code(s): R19.7 - Diarrhea, unspecified Is this a current diagnosis for this admission?: Yes Plan: Improving. The patient was previously endorsing a history of diarrhea, however she denies having diarrhea since being admitted to [facility]. C. difficile negative. - Time Time Spent with patient: 15-24 minutes Medications reviewed and adjusted accordingly: Yes Anticipated discharge: Home - Inpatient Certification Based on my medical assessment, after consideration of the patient's comorbidities, presenting symptoms, or acuity I expect that the services needed warrant INPATIENT care.: Yes I certify that my determination is in accordance with my understanding of Medicare's requirements for reasonable and necessary INPATIENT services [42 CFR 412.3e].: Yes Medical Necessity: Risk of Complication if Not Cared For in Hospital - Plan Summary Plan Summary: The plan for this patient is to optimize her blood pressure control, obtain chest CT, and hopefully send her home with follow up to 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
[2018-02-14] MEDS: AMLODIPINE BESYLATE 10 MG TABLET PO SCH (21:58)
[2018-02-14] MEDS: DOXEPIN HCL 25 MG CAPSULE PO SCH (21:58)
[2018-02-15] MEDS: LANSOPRAZOLE 30 MG TAB.RAP.DR PO SCH (07:33)
--- NOTE | 2018-02-15 08:21 | RADIOLOGY REPORT (SQ) ---
EXAM DESCRIPTION: CTA CHEST COMPLETED DATE/TIME: 02/14/2018 9:26 pm REASON FOR STUDY: Rule out PE R07.9 CHEST PAIN, UNSPECIFIED COMPARISON: Chest radiograph TECHNIQUE: CT scan of the chest performed using helical scanning technique with dynamic intravenous contrast injection. Images reviewed with lung, soft tissue and bone windows. Reconstructed coronal and sagittal MPR images reviewed. Additional 3 dimensional post-processing performed to develop Maximal Intensity Projection images (IN P). All images stored on PACS. All CT scanners at this facility use dose modulation, iterative reconstruction, and/or weight based d osing when appropriate to reduce radiation dose to as low as reasonably achievable (ALARA). [facility]: Dose Right [facility]: CareDose [facility]: Dose Right [facility]: Teradose 4D [facility]: foodpanda / hellofood CONTRAST TYPE AND DOSE: contrast/concentration: Isovue 370.00 mg/ml; Total Contrast Delivered: 86.0 ml; Total Saline Delivered: 110.1 ml Contrast bolus not optimized for the pulmonary arteries. RENAL FUNCTION: GFR > 60. RADIATION DOSE: CT Rad equipment meets quality standard of care and radiation dose reduction techniq ues were employed. CTDIvol: 41.8 - 49.6 mGy. DLP: 1660 mGy-cm. . LIMITATIONS: None. FINDINGS: LUNGS AND PLEURA: No masses, infiltrates, pneumothorax. No pleural effusions, calcificati ons. AORTA AND GREAT VESSELS: No aneurysm. Contrast bolus not optimized for the aorta. HEART: No pericardial effusion. No significant coronary artery calcifications. PULMONARY ARTERIES: No proximal emboli visualized. Contrast bolus not optimized to the pulmonary art eries. HILAR AND MEDIASTINAL STRUCTURES: No identified masses or abnormal nodes. HARDWARE: None in the chest. UPPER ABDOMEN: Fatty liver. THYROID AND OTHER SOFT TISSUES: No masses. No adenopathy. BONES: No acute or significant finding. 3D MIPS: Confirm above findings. OTHER: No other significant finding. IMPRESSION: Contrast bolus not optimized for the pulmonary arteries. No proximal pulmonary emboli. Fatty liver. COMMENT: Quality ID # [id number]: Final reports with documentation of one or more dose reduction techniques (e.g., Automated exposure control, adjustment of the mA and/or kV according to patient size, use of iterative reconstruction technique) TECHNICAL DOCUMENTATION: JOB ID: [id number] [employer]- All Rights Reserved Reading location - IP/workstation name: [email or web address]
[2018-02-15] MEDS: DULOXETINE HCL 30 MG CAPSULE.DR PO SCH (10:01)
[2018-02-15] MEDS: CARVEDILOL 12.5 MG TABLET PO SCH (10:01)
[2018-02-15] MEDS: IMIPRAMINE HCL 25 MG TABLET PO SCH (10:01)
[2018-02-15] MEDS: ISOSORBIDE MONONITRATE 30 MG TAB.ER.24H PO SCH (10:02)
[2018-02-15] MEDS: LURASIDONE HCL 40 MG TABLET PO SCH (10:02)
[2018-02-15] MEDS: LISINOPRIL 10 MG TABLET PO SCH (10:02)
[2018-02-15] MEDS: ENOXAPARIN SODIUM INJ 40 MG/0.4 ML DISP.SYRIN SUBCUT SCH (10:02)
--- NOTE | 2018-02-15 10:39 | PDOC TRANSFER SUMMARY ---
General - Admit/Disc Date/PCP Admission Date/Primary Care Provider: 02/11/18 22:10 ED BEASLEY MD Discharge Date: 02/15/18 - Discharge Diagnosis (1) Chest pain Is this a current diagnosis for this admission?: Yes (2) Diabetes Is this a current diagnosis for this admission?: Yes (3) Morbid obesity with BMI of 50.0-59.9, adult Is this a current diagnosis for this admission?: Yes (4) TAMIKA (obstructive sleep apnea) Is this a current diagnosis for this admission?: Yes - Additional Information Resuscitation Status: Full Code Discharge Diet: Cardiac Discharge Activity: Activity As Tolerated Prescriptions: Amlodipine Besylate [Norvasc 10 mg Tablet] 10 mg PO QHS 30 Days #30 tablet Home Medications: Alprazolam [Xanax] 1 mg PO Q8 02/12/18 Carvedilol [Coreg 12.5 mg Tablet] 12.5 mg PO Q12 02/12/18 Cyclobenzaprine HCl [Flexeril 5 mg Tablet] 5 mg PO Q8 02/12/18 Doxepin HCl 50 mg PO QHS 02/12/18 Duloxetine HCl [Cymbalta] 60 mg PO Q12 02/12/18 Furosemide [Lasix 40 mg Tablet] 40 mg PO BID 02/12/18 Imipramine HCl [Tofranil] 50 mg PO TID 02/12/18 Isosorbide Mononitrate [Imdur 30 mg Tablet.er] 30 mg PO DAILY 02/12/18 Lisinopril [Zestril] 40 mg PO DAILY 02/12/18 Lurasidone HCl [Latuda] 80 mg PO DAILY 02/12/18 Meloxicam [Mobic] 7.5 mg PO BID 02/12/18 Tramadol HCl [Ultram 50 mg Tablet] 50 mg PO Q8 02/12/18 Amlodipine Besylate [Norvasc 10 mg Tablet] 10 mg PO QHS 30 Days #30 tablet 02/15 Carvedilol [Coreg 12.5 mg Tablet] 25 mg PO Q12 30 Days #0 tablet 02/15/18 Lansoprazole [Prevacid 30 mg Odt Tablet] 30 mg PO [id number] tab.rap. 02/15/18 History of Present Illness Admission Date/PCP: 02/11/18 22:10 ED BEASLEY MD Patient complains of: Patient complains of chest pain, worse with movement or palpation Hospital Course Hospital Course: During her course she has progressed well. Initially admitted for chest pain. stress test was unremarkable. She continued to have intermittent chest pain. CTA was performed but revealed no PE. Her pain is reproducible and felt to be more muscular in nature than cardiac. However, given her comorbidities, she has been significantly evaluated during this admission. Her BP has been better controlled with adjustment of her medications. She will need to follow with her PCP in the next 3-[address] did show some fatty liver disease and lifestyle modifications have been discussed with the patient Physical Exam Vital Signs: Temp Pulse Resp BP Pulse Ox 97.4 F 92 16 155/93 H 98 02/15/18 00:00 02/15/18 07:00 02/15/18 00:00 02/15/18 00:00 02/15/18 00:00 Intake & Output 02/14/18 02/15/18 02/16/18 06:59 06:59 06:59 Intake Total 2140 1450 Balance 2140 1450 Weight 141.4 kg General appearance: PRESENT: no acute distress, cooperative, morbidly obese Head exam: PRESENT: atraumatic Eye exam: PRESENT: conjunctiva pink, EOMI Ear exam: PRESENT: normal external ear exam Mouth exam: PRESENT: moist, tongue midline Neck exam: ABSENT: carotid bruit, JVD, lymphadenopathy, thyromegaly Respiratory exam: PRESENT: clear to auscultation pierre. ABSENT: rales, rhonchi, wheezes Cardiovascular exam: PRESENT: RRR. ABSENT: diastolic murmur, rubs, systolic murmur Pulses: PRESENT: normal dorsalis pedis pul GI/Abdominal exam: PRESENT: normal bowel sounds, soft. ABSENT: distended, guarding, mass, organolmegaly, rebound, tenderness Musculoskeletal exam: PRESENT: ambulatory Neurological exam: PRESENT: alert, awake, oriented to person, oriented to place , oriented to time, oriented to situation, CN II-XII grossly intact. ABSENT: motor sensory deficit Skin exam: PRESENT: dry, intact, warm. ABSENT: cyanosis, rash Results Laboratory Results: 02/14/18 08:04 02/14/18 08:04 02/12/18 02/12/18 02/12/18 02:27 09:06 14:30 Troponin I < 0.012 < 0.012 < 0.012 Impressions: Chest X-Ray 02/11/18 14:26 IMPRESSION: NO ACUTE RADIOGRAPHIC FINDING IN THE CHEST. Chest/Abdomen CTA 02/14/18 00:00 IMPRESSION: Contrast bolus not optimized for the pulmonary arteries. No proximal pulmonary emboli. Fatty liver. Transfer Plan - Disposition Transfer Plan: home - Time Spent with Patient Time spent with patient: Less than 30 Minutes Qualifiers - * PATEINT BEING DISCHARGED WITH ANY OF THE FOLLOWING DIAGNOSIS?: No VTE patient discharged on overlapping Therapy?: No
--- NOTE | 2018-02-15 12:29 | PDOC PROGRESS REPORT ---
Subjective Progress Note for:: 02/15/18 Subjective:: Patient did complete nuclear stress test without any complications. Results were again reviewed with the patient. Small area of transient perfusion defect noted but this is of questionable significance. Discussed that patient would benefit from follow-up. 2D echo results also reviewed. Patient is maintaining sinus rhythm. Review of systems: Rest review of systems negative. Medications: Medications have been reviewed. Reason For Visit: CHEST PAIN Physical Exam Vital Signs: Temp Pulse Resp BP Pulse Ox 97.5 F 87 20 152/99 H 100 02/15/18 11:41 02/15/18 11:41 02/15/18 11:41 02/15/18 11:41 02/15/18 11:41 Intake & Output 02/14/18 02/15/18 02/16/18 06:59 06:59 06:59 Intake Total 2140 1450 Balance 2140 1450 Weight 141.4 kg Exam: GENERAL: well-nourished and in no acute distress. Alert and oriented x3 HEAD: Atraumatic, normocephalic. EYES: Pupils equal round and reactive to light, extraocular movements intact, sclera anicteric, conjunctiva are normal. ENT: TMs normal, nares patent, oropharynx clear without exudates. Moist mucous membranes. No oral ulcerations or bleeding gums noted NECK: supple without lymphadenopathy. Trachea is central. No cervical or axillary lymphadenopathy noted. Carotids are 2+, JVD WNL LUNGS: Respiration seems nonlabored, no significant accessory muscle action noted. Breath sounds clear to auscultation bilaterally and equal noted. No wheezes rales or rhonchi noted. No significant dullness noted on percussion. CHEST: Palpation of the chest wall shows no significant chest wall tenderness. No other significant abnormalities noted. 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 ABDOMEN: Soft, no significant tenderness appreciated, normoactive bowel sounds. No guarding, no rebound. No rigidity noted . No masses appreciated. EXTREMITIES: Pedal pulses are 1-2+, no calf tenderness noted. No clubbing or cyanosis.trace to 1+ pedal edema noted NEUROLOGICAL: Focused neurological exam showed no significant neurologic deficit. Normal speech, no focal weakness appreciated. PSYCH: Normal mood, normal affect. Judgment and insight within normal limits. SKIN: No significant ecchymosis, skin is noted to be warm. MUSCULOSKELETAL EXAM: No significant acute joint swelling noted. Results Laboratory Results: 02/14/18 08:04 02/14/18 08:04 02/12/18 02/12/18 02/12/18 02:27 09:06 14:30 Troponin I < 0.012 < 0.012 < 0.012 EKG Comments: Telemetry shows sinus rhythm without any sustained tachycardia or bradycardia. Impressions: Chest X-Ray 02/11/18 14:26 IMPRESSION: NO ACUTE RADIOGRAPHIC FINDING IN THE CHEST. Chest/Abdomen CTA 02/14/18 00:00 IMPRESSION: Contrast bolus not optimized for the pulmonary arteries. No proximal pulmonary emboli. Fatty liver. 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 Nuclear stress test results were again reviewed with the patient. 2D echo results reviewed with the patient patient here being recommended aggressive risk factor modification and medical management. Patient to report any recurrence of chest pain. Diabetes: Recommend good control of blood sugar. However should avoid any hypoglycemia and hyperglycemia. Patient being expertly managed by primary care M.D/hospitalist Obstructive sleep apnea: Patient encouraged to use her CPAP machine during this hospitalization. Morbid obesity: Patient encouraged to lose weight. Patient encouraged to follow-up with me or resource conservationist of her choice as well as vamp presser. Will sign off. Please reconsult if needed - Time Time with patient: 15-25 minutes - CODE STATUS was discussed, patient remains full code. Multiple medical problems were addressed. More than 50% of the time spent coordinating care, discussing management plans with involved caregivers. Management plans discussed with involved personnels. Medical decision making was of moderate to high complexity, patient's has multiple comorbidities. Medications reviewed and adjusted accordingly: Yes
[2018-02-15 12:53] VITALS: BP 149/83
== END 2018-02-15 12:50 | disposition home or self-care (01) ==
LOC: ER 14:24 → EH 22:10 → 5 02-12 00:30
PROVIDERS: ADMIT Internal Medicine Geriatric Medicine; ATTEND Internal Medicine Geriatric Medicine
DX: I16.0 Hypertensive urgency (principal); R07.2 Precordial pain; E11.9 Type 2 diabetes mellitus without complications; I11.0 Hypertensive heart disease with heart failure; I50.30 Unspecified diastolic (congestive) heart failure; G47.33 Obstructive sleep apnea (adult) (pediatric); E66.01 Morbid (severe) obesity due to excess calories; Z68.43 Body mass index [BMI] 50.0-59.9, adult; Z86.711 Personal history of pulmonary embolism
CPT/HCPCS: 93005 ×3; 96376; 99285; 96374; 36415 ×4; 82553; 82550; 83735 ×3; 84100 ×2; 85025 ×2; 85027 ×2; 80048 ×3; 80053; 84484 ×2; 85379; 87493; 93306; 93017; 71045; 78452; 71275; 93010 ×3; G0378 ×5; A9500; A9270 ×30; J2785; J0360 ×2; J3490 ×7; J1650 ×3; J3475; J0280; Q9969; S0119

== ENCOUNTER 2018-02-24 19:17 | Emergency (ER) | payer MEDICARE, MEDICAID ==
--- NOTE | 2018-02-24 20:09 | ER Document Report ---
ED Medical Screen (RME) - General Chief Complaint: Pedal Edema Stated Complaint: SWOLLEN FEET Time Seen by Provider: 02/24/18 20:02 Notes: 57-year-old female patient comes emergency room complaining of onset yesterday of feet and lower legs swelling with shortness of breath and worsening dyspnea on exertion. She was admitted at the end of December, and again toward the end of January. Her January admission was 02/11/18 through 02/15/18. She does have new pitting edema to the lower extremities and puffiness of the feet by patient's history. I have greeted and performed a rapid initial assessment of this patient. A comprehensive ED assessment and evaluation of the patient, analysis of test results and completion of the medical decision making process will be conducted by additional ED providers. TRAVEL OUTSIDE OF THE [place] IN LAST 30 DAYS: No - Related Data Allergies/Adverse Reactions: No Known Drug Allergies Allergy (Verified 02/24/18 19:18) tomato [Tomato] Allergy (Verified 02/24/18 19:18) Past Medical History - Social History Chew tobacco use (# tins/day): No Frequency of alcohol use: None Drug Abuse: None - Past Medical History Cardiac Medical History: Reports: Hx Congestive Heart Failure - Diastolic, Hx Hypertension, Hx Pulmonary Embolism Denies: Hx Atrial Fibrillation, Hx Coronary Artery Disease, Hx DVT, Hx Heart Attack, Hx Hypercholesterolemia Pulmonary Medical History: Reports: Hx COPD, Hx Sleep Apnea - Uncertain CPAP pressure setting. No home oxygen. Denies: Hx Asthma, Hx Tuberculosis Neurological Medical History: Denies: Hx Seizures Endocrine Medical History: Denies: Hx Diabetes Mellitus Type 1, Hx Diabetes Mellitus Type 2, Hx Hyperthyroidism, Hx Hypothyroidism Renal/ Medical History: Denies: Hx Peritoneal Dialysis GI Medical History: Reports: Hx Gastroesophageal Reflux Disease. Denies: Hx Cirrhosis, Hx Hepatitis Musculoskeltal Medical History: Reports Hx Arthritis, Reports Hx Musculoskeletal Deformity, Reports Hx Musculoskeletal Trauma Psychiatric Medical History: Reports: Hx Anxiety, Hx Depression Traumatic Medical History: Reports: Hx Fractures Infectious Medical History: Denies: Hx Hepatitis Past Surgical History: Reports: Hx Cholecystectomy, Hx Mastectomy - L lumpectomy x2 and R lumpectomy x1 (begnin per patient)., Hx Orthopedic Surgery - Left anterior cruciate ligament repair; left knee replacement., Other - Pericardiocentesis 3 years ago in [place] to drain an effusion. - Immunizations Immunizations up to date: Yes Hx Diphtheria, Pertussis, Tetanus Vaccination: Yes - unk History of Influenza Vaccine for 08/2017 - 01/2018 Season: Yes Influenza Administration Date for 08/2017 - 01/2018 Season: 09/24/17 Physical Exam - Vital signs Vitals: Temp Pulse Resp BP Pulse Ox 97.4 F 91 24 H 147/82 H 93 02/24/18 19:36 02/24/18 19:36 02/24/18 19:36 02/24/18 19:36 02/24/18 19:36 Course - Vital Signs Vital signs: Temp Pulse Resp BP Pulse Ox 97.4 F 91 24 H 147/82 H 93 02/24/18 19:36 02/24/18 19:36 02/24/18 19:36 02/24/18 19:36 02/24/18 19:36
--- NOTE | 2018-02-24 20:46 | ER Document Report ---
ED Respiratory Problem - General Chief Complaint: Pedal Edema Stated Complaint: SWOLLEN FEET Time Seen by Provider: 02/24/18 20:02 Notes: Patient is a 57-year-old female who comes emergency department for chief complaint of shortness of breath and swelling to her feet. She states she noticed foot swelling starting on Friday, she states over the past 2 days this has progressively worsened and now she cannot lie flat, if she walks a short distance she gets out of breath, she can barely perform any activities because of her shortness of breath. She denies chest pain, dizziness, fever, vomiting. Past medical history of CHF, on Lasix 40 mg twice a day, hypertension, she denies any other medical history. TRAVEL OUTSIDE OF THE [place] IN LAST 30 DAYS: No - Related Data Allergies/Adverse Reactions: No Known Drug Allergies Allergy (Verified 02/24/18 19:18) tomato [Tomato] Allergy (Verified 02/24/18 19:18) Past Medical History - General Information source: Patient - Social History Smoking Status: Never Smoker Chew tobacco use (# tins/day): No Frequency of alcohol use: None Drug Abuse: None Lives with: Family Family History: Arthritis, Hypertension, Malignancy, Thyroid Disfunction Patient has suicidal ideation: No Patient has homicidal ideation: No - Past Medical History Cardiac Medical History: Reports: Hx Congestive Heart Failure - Diastolic, Hx Hypertension, Hx Pulmonary Embolism Denies: Hx Atrial Fibrillation, Hx Coronary Artery Disease, Hx DVT, Hx Heart Attack, Hx Hypercholesterolemia Pulmonary Medical History: Reports: Hx COPD, Hx Sleep Apnea - Uncertain CPAP pressure setting. No home oxygen. Denies: Hx Asthma, Hx Tuberculosis Neurological Medical History: Denies: Hx Seizures Endocrine Medical History: Denies: Hx Diabetes Mellitus Type 1, Hx Diabetes Mellitus Type 2, Hx Hyperthyroidism, Hx Hypothyroidism Renal/ Medical History: Denies: Hx Peritoneal Dialysis GI Medical History: Reports: Hx Gastroesophageal Reflux Disease. Denies: Hx Cirrhosis, Hx Hepatitis Musculoskeltal Medical History: Reports Hx Arthritis, Reports Hx Musculoskeletal Deformity, Reports Hx Musculoskeletal Trauma Psychiatric Medical History: Reports: Hx Anxiety, Hx Depression Traumatic Medical History: Reports: Hx Fractures Infectious Medical History: Denies: Hx Hepatitis Past Surgical History: Reports: Hx Cholecystectomy, Hx Mastectomy - L lumpectomy x2 and R lumpectomy x1 (begnin per patient)., Hx Orthopedic Surgery - Left anterior cruciate ligament repair; left knee replacement., Other - Pericardiocentesis 3 years ago in [place] to drain an effusion. - Immunizations Immunizations up to date: Yes Hx Diphtheria, Pertussis, Tetanus Vaccination: Yes - unk Hx Pneumococcal Vaccination: 04/13/14 Review of Systems - Review of Systems Constitutional: No symptoms reported EENT: No symptoms reported Cardiovascular: See HPI Respiratory: See HPI Gastrointestinal: No symptoms reported Genitourinary: No symptoms reported Female Genitourinary: No symptoms reported Musculoskeletal: See HPI Skin: No symptoms reported Hematologic/Lymphatic: See HPI Neurological/Psychological: No symptoms reported Physical Exam - Vital signs Vitals: Temp Pulse Resp BP Pulse Ox 97.4 F 91 24 H 147/82 H 93 02/24/18 19:36 02/24/18 19:36 02/24/18 19:36 02/24/18 19:36 02/24/18 19:36 Interpretation: Normal - General General appearance: Appears well In distress: None - Patient smiling, well-appearing - HEENT Head: Normocephalic, Atraumatic Eyes: Normal Pupils: PERRL - Respiratory Respiratory status: No respiratory distress, Tachypnea - Mild tachypnea. No: Respiratory distress Chest status: Nontender Breath sounds: Normal. No: Decreased air movement, Nonproductive cough, Rales, Rhonchi, Stridor Chest palpation: Normal - Cardiovascular Rhythm: Regular. No: Tachycardia Heart sounds: Normal auscultation, S1 appreciated, S2 appreciated Murmur: No Normal capillary refill: Yes - Abdominal Inspection: Normal Distension: No distension Bowel sounds: Normal Tenderness: Nontender Organomegaly: No organomegaly - Back Back: Normal, Nontender - Extremities General upper extremity: Normal inspection, Nontender, Normal color, Normal ROM , Normal temperature General lower extremity: Other - There is some lower extremity swelling, right greater than left, there is some pitting in the left leg. Normal distal neurovascular exam. Normal lower extremity exam otherwise - Neurological Neuro grossly intact: Yes Cognition: Normal Orientation: AAOx4 Emmanuel Coma Scale Eye Opening: Spontaneous Emmanuel Coma Scale Verbal: Oriented Emmanuel Coma Scale Motor: Obeys Commands [place] Coma Scale Total: 15 Speech: Normal Cranial nerves: Normal Cerebellar coordination: Normal Motor strength normal: LUE, RUE, LLE, RLE Additional motor exam normals: Equal planner intern Sensory: Normal - Psychological Associated symptoms: Normal affect, Normal mood - Skin Skin Temperature: Warm Skin Moisture: Dry Skin Color: Normal Course - Re-evaluation Re-evalutation: Patient does have swollen lower extremities, right greater than left. She reports dyspnea on exertion. She is not hypoxic on my evaluation. Clear lungs on my evaluation with no obvious rales, no wheezing, no rhonchi. CBC unremarkable, chemistry nonspecific, initial cardiac enzyme is negative. Chest x-ray is unremarkable. BNP is not elevated. Does not appear to be CHF exacerbation. Venous Doppler is negative. Discussed with patient. Patient still states that she feels like she has worse dyspnea on exertion than usual, because of swollen extremity on right side, decision was made to completely evaluate patient with CTA to rule out PE, pneumonia, or other acute abnormality. Second cardiac enzyme is negative. CTA with no acute or concerning findings. Discussed results with patient. Patient is very optimistic about this, she states she is willing to try to ambulate and see how she does. Patient ambulated without any difficulty, she did not have dyspnea on exertion, she states satisfaction with how well she feels and is asking to go home. She was provided with a dose of Lasix for her lower extremity swelling, she is on Lasix at home, she states she will follow closely with her provider, she states she will return if she worsens. - Vital Signs Vital signs: Temp Pulse Resp BP Pulse Ox 97.4 F 85 16 147/75 H 100 02/25/18 04:20 02/25/18 04:20 02/25/18 04:20 02/25/18 04:20 02/25/18 04:20 - Laboratory Result Diagrams: 02/24/18 21:30 02/24/18 21:30 Laboratory results interpreted by me: 02/24/18 02/24/18 02/24/18 21:30 21:30 22:14 RDW 15.7 H Carbon Dioxide 31 H Glucose 147 H Calcium 10.3 H AST 43 H Creatine Kinase 147 H Urine Protein 30 H Urine Urobilinogen 2.0 H Urine Ascorbic Acid 40 H Discharge - Discharge Clinical Impression: MORA (dyspnea on exertion), Swelling of lower extremity Condition: Stable Disposition: HOME, SELF-CARE Additional Instructions: You have been given a dose of Lasix tonight to help reduce your lower extremity swelling, continue your current regimen of Lasix in addition to this, elevate your legs when possible, use compression stockings when possible. Your workup does not show blood clot, fluid in your lungs, pneumonia, or other concerning abnormalities. Follow-up closely with your provider within the next several days for additional evaluation and management. Return if you worsen including chest pain, passing out, worsening difficulty breathing, fever, or any other concerning or worsening symptoms. Referrals: ED BEASLEY MD [Primary Care Provider] - Follow up as needed
[2018-02-24 21:40] LABS: ABSOLUTE BASOPHILS # (AUTO) 0.1 10^3/uL (0.0-0.2); ABSOLUTE LYMPHOCYTES (AUTO) 2.5 10^3/uL (0.5-4.7); ABSOLUTE MONOCYTES (AUTO) 0.5 10^3/uL (0.1-1.4); ABSOLUTE NEUT (AUTO) 2.9 10^3/uL (1.7-8.2); BASOPHILS % (AUTO) 1.2 % (0-2); EOSINOPHILS % (AUTO) 0.2 % (0-6); HEMATOCRIT 36.4 % (36.0-47.0); LYMPHOCYTES % (AUTO) 42.5 % (13-45); MEAN CORPUSCULAR HEMOGLOBIN 30.4 pg (27.0-33.4); MEAN CORPUSCULAR VOLUME 92 fl (80-97); MONOCYTES % (AUTO) 8.3 % (3-13); PLATELET COUNT 350 10^3/uL (150-450); RED BLOOD COUNT 3.95 10^6/uL (3.72-5.28); RED CELL DISTRIBUTION WIDTH 15.7 % (11.5-14.0); SEGMENTED NEUTROPHILS % (AUTO) 47.8 % (42-78); TOTAL CELLS COUNTED % (AUTO) 100 %
[2018-02-24 21:54] LABS: ALANINE AMINOTRANSFERASE 38 U/L (9-52); ALBUMIN 4.5 g/dL (3.5-5.0); ALKALINE PHOSPHATASE 89 U/L (38-126); ANION GAP 11 (5-19); ASPARTATE AMINO TRANSFERASE 43 U/L (14-36); BILIRUBIN,DIRECT 0.3 mg/dL (0.0-0.4); BILIRUBIN,TOTAL 0.3 mg/dL (0.2-1.3); BLOOD UREA NITROGEN 10 mg/dL (7-20); CALCIUM 10.3 mg/dL (8.4-10.2); CARBON DIOXIDE 31 mmol/L (22-30); CHLORIDE 101 mmol/L (98-107); CREATINE KINASE 147 U/L (30-135); GLUCOSE 147 mg/dL (75-110); POTASSIUM 3.7 mmol/L (3.6-5.0); SODIUM 142.7 mmol/L (137-145); TOTAL PROTEIN 7.6 g/dL (6.3-8.2)
[2018-02-24 22:06] LABS: CREATINE KINASE MB 0.68 ng/mL (<4.55); TROPONIN I 0.018 ng/mL
--- NOTE | 2018-02-24 22:28 | RADIOLOGY REPORT (SQ) ---
EXAM DESCRIPTION: CHEST 2 VIEWS COMPLETED DATE/TIME: 02/24/2018 9:12 pm REASON FOR STUDY: Peripheral edema w/ SOB MORA COMPARISON: 01/20/2018 NUMBER OF VIEWS: Two view. TECHNIQUE: Frontal and lateral radiographic views of the chest acquired. LIMITATIONS: None. FINDINGS: LUNGS AND PLEURA: No opacities, masses or pneumothorax. No pleural effusion. MEDIASTINUM AND HILAR STRUCTURES: No masses. No contour abnormalities. HEART AND VASCULAR STRUCTURES: Heart enlarged without failure. Aorta normal for age. BONES: No acute findings. HARDWARE: None in the chest. OTHER: No other significant finding. IMPRESSION: CARDIAC ENLARGEMENT WITHOUT FAILURE. TECHNICAL DOCUMENTATION: JOB ID: [id number] [employer]- All Rights Reserved Reading location - IP/workstation name: [email or web address]
--- NOTE | 2018-02-24 22:52 | RADIOLOGY REPORT (SQ) ---
EXAM DESCRIPTION: VENOUS UNILATERAL LOWER COMPLETED DATE/TIME: 02/24/2018 10:06 pm REASON FOR STUDY: right leg swelling COMPARISON: None. TECHNIQUE: Dynamic and static lord scale and color images acquired of the right leg venous system. S elected spectral images acquired with additional compression and augmentation maneuvers. The contrala teral common femoral vein and saphenofemoral junction were also imaged. Images stored on PACS. LIMITATIONS: None. FINDINGS: COMMON FEMORAL: Normal phasicity, compression and augmentation. No visualized echogenic ma terial on lord scale. No defects on color images. FEMORAL: Normal compression and augmentation. No visualized echogenic material on lord scale. No defe cts on color images. POPLITEAL: Normal compression, augmentation. No visualized echogenic material on lord scale. No defec ts on color images. CALF VESSELS: Normal compression, augmentation. No visualized echogenic material on lord scale. No de fects on color images. GSV and SSV: Normal compression, augmentation. No visualized echogenic material on lord scale. No def ects on color images. ANY DEEP VENOUS INSUFFICIENCY: Not evaluated. ANY EVIDENCE OF POPLITEAL CYST: No. OTHER: No other significant finding. CONTRALATERAL COMMON FEMORAL VEIN AND SAPHENOFEMORAL JUNCTION: Normal phasicity, compression and augmentation. No visualized echogenic material on lord scale. No de fects on color images. IMPRESSION: NO EVIDENCE OF DVT OR SVT IN THE RIGHT LEG. TECHNICAL DOCUMENTATION: JOB ID: [id number] [employer]- All Rights Reserved Reading location - IP/workstation name: [email or web address]
[2018-02-24 22:54] LABS: APPEARANCE,URINE CLOUDY; BILIRUBIN,URINE NEGATIVE (NEGATIVE); CALCIUM OXALATE CRYSTALS,URINE MANY /HPF; COLOR,URINE YELLOW; GLUCOSE, URINE NEGATIVE (NEGATIVE); KETONES,URINE NEGATIVE (NEGATIVE); LEUKOCYTE ESTERASE,URINE NEGATIVE (NEGATIVE); NITRITE,URINE NEGATIVE (NEGATIVE); PROTEIN,URINE 30 mg/dL (NEGATIVE)
--- NOTE | 2018-02-25 01:03 | RADIOLOGY REPORT (SQ) ---
EXAM DESCRIPTION: CTA of the chest per PE protocol with contrast. CLINICAL HISTORY: leg swelling, shortness of breath COMPARISON: 02/14/2018 TECHNIQUE: CTA of the chest obtained following the uncomplicated intravenous administration of 100.2 mL Isovue-370. 3-D/MIP reformatted images of the chest available for evaluation. DLP: 1900.25 mGycm FINDINGS: Chest: Pulmonary arteries: Contrast bolus is suboptimal. No central filling defects identified. Evaluation of the lobar, segmental, and subsegmental pulmonary arterial branches is suboptimal due to contrast bolus timing. Thyroid:No abnormalities of the visualized thyroid. Great Vessels:Great vessels have normal anatomic configuration. Thoracic Aorta:No abnormalities of the thoracic aorta identified. Heart: Coronary artery atherosclerosis. No cardiomegaly or pericardial effusion. Lymph Nodes:No enlarged mediastinal lymph nodes identified. Esophagus:No abnormalities of the esophagus identified. Other:No additional findings. Lungs:No alveolar or interstitial airspace opacities identified. Pleura:No pleural effusion or pneumothorax. Trachea/Airways:No abnormalities of the visualized trachea or airways. Bones:No destructive osseous lesions. Degenerative change of the spine. Upper Abdomen:Limited images of the upper abdomen demonstrate no definite abnormalities of visualized portions of the pancreas, spleen, or adrenal glands. Decreased density throughout the liver. Prior cholecystectomy. IMPRESSION: 1. No central pulmonary embolus identified. Suboptimal contrast bolus timing. 2. Hepatic steatosis. This exam was performed according to our departmental dose-optimization program, which includes automated exposure control, adjustment of the mA and/or kV according to patient size and/or use of iterative reconstruction technique.
[2018-02-25] MEDS ORDERED: FUROSEMIDE INJ/PF 40 MG/4 ML SDV IV ONE (03:37)
[2018-02-25 04:22] VITALS: BP 147/75
== END 2018-02-25 04:20 | disposition home or self-care (01) ==
LOC: ER 19:17
DX: R06.00 Dyspnea, unspecified (principal); M79.89 Other specified soft tissue disorders; R60.0 Localized edema; I10 Essential (primary) hypertension; J44.9 Chronic obstructive pulmonary disease, unspecified
CPT/HCPCS: 99285; 96374; 36415; 82553; 82550; 85025; 80053; 81001; 84484; 83880; 93971; 71046; 71275; J1940

== ENCOUNTER → 2018-06-09 | Outpatient (CLI) | payer MEDICARE, MEDICAID ==
[2018-06-09 14:30] LABS: ABSOLUTE LYMPHOCYTES (AUTO) 2.3 10^3/uL (0.5-4.7); ABSOLUTE MONOCYTES (AUTO) 0.5 10^3/uL (0.1-1.4); ABSOLUTE NEUT (AUTO) 3.1 10^3/uL (1.7-8.2); BASOPHILS % (AUTO) 0.8 % (0-2); HEMATOCRIT 36.5 % (36.0-47.0); HEMOGLOBIN 12.3 g/dL (12.0-15.5); LYMPHOCYTES % (AUTO) 38.8 % (13-45); MEAN CORPUSCULAR HEMOGLOBIN 30.4 pg (27.0-33.4); MEAN CORPUSCULAR HGB CONC 33.8 g/dL (32.0-36.0); MEAN CORPUSCULAR VOLUME 90 fl (80-97); MONOCYTES % (AUTO) 8.1 % (3-13); PLATELET COUNT 312 10^3/uL (150-450); RED BLOOD COUNT 4.06 10^6/uL (3.72-5.28); RED CELL DISTRIBUTION WIDTH 16.9 % (11.5-14.0); SEGMENTED NEUTROPHILS % (AUTO) 52.3 % (42-78); TOTAL CELLS COUNTED % (AUTO) 100 %
[2018-06-09 14:53] LABS: ALANINE AMINOTRANSFERASE 37 U/L (9-52); ALBUMIN 4.5 g/dL (3.5-5.0); ALKALINE PHOSPHATASE 92 U/L (38-126); ANION GAP 16 (5-19); ASPARTATE AMINO TRANSFERASE 44 U/L (14-36); BILIRUBIN,DIRECT 0.3 mg/dL (0.0-0.4); BILIRUBIN,TOTAL 0.4 mg/dL (0.2-1.3); BLOOD UREA NITROGEN 11 mg/dL (7-20); CALCIUM 9.5 mg/dL (8.4-10.2); CARBON DIOXIDE 31 mmol/L (22-30); CHLORIDE 100 mmol/L (98-107); CHOLESTEROL 201.53 mg/dL (0-200); GLUCOSE 142 mg/dL (75-110); POTASSIUM 3.5 mmol/L (3.6-5.0); SODIUM 147.2 mmol/L (137-145); TRIGLYCERIDES 274 mg/dL (<150)
[2018-06-09 15:05] LABS: DIRECT LDL 112 mg/dL (<100)
[2018-06-09 15:06] LABS: VLDL CHOLESTEROL 54.8 mg/dL (10-31)
[2018-06-09 15:08] LABS: FREE T4 (FREE THYROXINE) 1.04 ng/dL (0.78-2.19)
[2018-06-09 15:22] LABS: THYROID STIMULATING HORMONE 0.58 uIU/mL (0.47-4.68)
== END ==
LOC: OD 13:19
PROVIDERS: ATTEND Nurse Practitioner Psychiatric/Mental Health
DX: F31.81 Bipolar II disorder (principal)
CPT/HCPCS: 36415; 80053; 80061; 83036; 84439; 84443; 85025

== ENCOUNTER 2018-10-03 07:42 | Emergency (ER) | payer MEDICARE, MEDICAID ==
[2018-10-03] MEDS ORDERED: IPRATROPIUM/ALBUTEROL 0.5-2.5 MG/3 ML AMPUL NEB ONE (08:13)
[2018-10-03] MEDS ORDERED: METHYLPREDNISOLONE INJ 125 MG/2 ML SDV IV ONE (08:24)
[2018-10-03] MEDS: ALBUTEROL SULFATE 0.083% NEB 2.5 MG/3 ML AMPUL NEB SCH ×2 (08:25→09:02)
[2018-10-03] MEDS ORDERED: ALBUTEROL SULFATE 0.083% NEB 2.5 MG/3 ML AMPUL NEB ONE ×2 (08:58→12:52)
--- NOTE | 2018-10-03 09:03 | ER Document Report ---
ED General - General Chief Complaint: Chest Congestion Stated Complaint: TROUBLE BREATHING Time Seen by Provider: 10/03/18 08:14 TRAVEL OUTSIDE OF THE [place] IN LAST 30 DAYS: No - HPI Notes: Patient is a 58-year-old female that presents to the emergency department for chief complaint of cough and shortness of breath. Patient states yesterday evening she started developing a productive cough. She reports thick yellow sputum. She took [id number] Coricidin which gave her no relief. She has recently been diagnosed with COPD and states that she lost her nebulizer machine during a recent move. She has not had any albuterol treatments at home. She has not currently been on any steroids. She denies any history of admission to the hospital for her COPD in the past. She also states she is having a right-sided chest pain that is achy and worse with coughing. The pain is been constant since she started coughing yesterday evening. There has been no period of time since yesterday evening where the pain was completely gone. She denies any radiation of pain. The pain is better when she is not coughing. She did get an influenza vaccine 2 weeks ago. She denies fevers. Past Medical History: COPD, diabetes, hypertension Past Surgical History: Left ACL repair, bilateral breast lumpectomy (benign) Social History: Denies tobacco drugs and alcohol use Family History: Reviewed and noncontributory for presenting illness Allergies: Reviewed, see documented allergy list. REVIEW OF SYSTEMS: CONSTITUTIONAL : No fever No chills No diaphoresis No recent illness EENT: No vision changes congestion No sore throat CARDIOVASCULAR: No chest pain No palpitations RESPIRATORY: shortness of breath cough No difficulty breathing GASTROINTESTINAL: No abdominal pain No nausea No vomiting No diarrhea GENITOURINARY: No dysuria No hematuria No difficulty urinating MUSCULOSKELETAL: No back pain No leg pain No arm pain SKIN: No rashes No lesions LYMPHATIC: No swollen, enlarged glands. NEUROLOGICAL: No lightheadedness No headache No weakness No paresthesias PSYCHIATRIC: No anxiety No depression PHYSICAL EXAMINATION: Vital signs reviewed, nursing noted reviewed. GENERAL: Well-appearing, well-nourished and in no acute distress. HEAD: Atraumatic, normocephalic. EYES: Eyes appear normal, extraocular movements intact, sclera anicteric, conjunctiva are normal. ENT: nares patent, oropharynx clear without exudates. Moist mucous membranes. NECK: Normal range of motion, supple without lymphadenopathy LUNGS: tachypnea. Mild accessory muscle use. Bilateral expiratory wheezing HEART: Regular rate and rhythm without murmurs ABDOMEN: Soft, nontender, normoactive bowel sounds. No rebound, guarding, or rigidity. No masses appreciated. EXTREMITIES: Nontender, good range of motion, no pitting or edema. NEUROLOGICAL: No focal neurological deficits. Moves all extremities spontaneously Motor and sensory grossly intact on exam. PSYCH: Normal mood, normal affect. SKIN: Warm, Dry, normal turgor, no rashes or lesions noted on exposed skin - Related Data Allergies/Adverse Reactions: No Known Drug Allergies Allergy (Verified 10/03/18 07:43) tomato [Tomato] Allergy (Verified 10/03/18 07:43) Past Medical History - Social History Smoking Status: Never Smoker Family History: Arthritis, Hypertension, Malignancy, Thyroid Disfunction - Past Medical History Cardiac Medical History: Reports: Hx Congestive Heart Failure - Diastolic, Hx Hypertension, Hx Pulmonary Embolism Denies: Hx Atrial Fibrillation, Hx Coronary Artery Disease, Hx DVT, Hx Heart Attack, Hx Hypercholesterolemia Pulmonary Medical History: Reports: Hx COPD, Hx Sleep Apnea - Uncertain CPAP pressure setting. No home oxygen. Denies: Hx Asthma, Hx Tuberculosis Neurological Medical History: Denies: Hx Seizures Endocrine Medical History: Denies: Hx Diabetes Mellitus Type 1, Hx Diabetes Mellitus Type 2, Hx Hyperthyroidism, Hx Hypothyroidism Renal/ Medical History: Denies: Hx Peritoneal Dialysis GI Medical History: Reports: Hx Gastroesophageal Reflux Disease. Denies: Hx Cirrhosis, Hx Hepatitis Musculoskeletal Medical History: Reports Hx Arthritis, Reports Hx Musculoskeletal Deformity, Reports Hx Musculoskeletal Trauma Psychiatric Medical History: Reports: Hx Anxiety, Hx Depression Traumatic Medical History: Reports: Hx Fractures Infectious Medical History: Denies: Hx Hepatitis Past Surgical History: Reports: Hx Cholecystectomy, Hx Mastectomy - L lumpectomy x2 and R lumpectomy x1 (begnin per patient)., Hx Orthopedic Surgery - Left anterior cruciate ligament repair; left knee replacement., Other - Pericardiocentesis 3 years ago in [place] to drain an effusion. - Immunizations Immunizations up to date: Yes Hx Diphtheria, Pertussis, Tetanus Vaccination: Yes - unk Hx Pneumococcal Vaccination: 04/13/14 Review of Systems - Review of Systems Notes: Dictated Physical Exam - Vital signs Vitals: Temp Pulse Resp BP Pulse Ox 97.8 F 126 H 40 H 126/83 H 95 10/03/18 07:56 10/03/18 07:56 10/03/18 07:56 10/03/18 07:56 10/03/18 07:56 - Notes Notes: Dictated Course - Re-evaluation Re-evalutation: 10/03/18 09:02 Vitals reviewed. Nursing notes reviewed. Patient is oxygenating on room air. She was started on DuoNeb and albuterol treatments. She was given Solu-Medrol for COPD exacerbation. Lung reevaluation after DuoNeb treatment is significantly improved. Her tachypnea and accessory muscle use is improving. Patient states she is feeling much better after her first breathing treatment. 10/03/18 11:02 Patient reevaluated and is still oxygenating well. After all the breathing treatment she states she is feeling much better. She was ambulated and maintained her oxygen saturation greater than 96%, she did become moderately dyspneic but was not lightheaded. She was still able to speak in sentences. Patient's lab work is unremarkable. Her troponin is negative. She had a stress test done 4 weeks ago that was normal and I do not suspect ACS as a cause of her chest pain. Her d-dimer is slightly elevated therefore CT angio of the chest will be obtained to evaluate for pulmonary embolism. 10/03/18 12:52 CT scan shows no aortic dissection or central pulmonary embolism. My suspicion for small peripheral PE causing patient's symptoms is very minimal. I did discuss the possibility of missed peripheral PE however patient has no risk factors for PE and is in agreement with following symptomatically after treatment of her COPD exacerbation. Patient will be started on albuterol 2 puffs every 4 hours and prednisone. She was counseled on watching dietary choices while on prednisone and checking her glucose routinely. She will follow with her primary care doctor in the next few days for reevaluation. She will return for new or worsening symptoms. She was discharged home in stable condition. Laboratory 10/03/18 10/03/18 10/03/18 08:45 08:45 08:45 WBC 7.1 RBC 3.96 Hgb 12.1 Hct 36.2 MCV 92 MCH 30.6 MCHC 33.4 RDW 17.3 H Plt Count 310 Seg Neutrophils % 51.4 Lymphocytes % 37.9 Monocytes % 9.7 Eosinophils % 0.4 Basophils % 0.6 Absolute Neutrophils 3.6 Absolute Lymphocytes 2.7 Absolute Monocytes 0.7 Absolute Eosinophils 0.0 Absolute Basophils 0.0 D-Dimer Sodium Cancelled Potassium Cancelled Chloride Cancelled Carbon Dioxide Cancelled Anion Gap Cancelled BUN Cancelled Creatinine Cancelled Est GFR ( Amer) Cancelled Est GFR (Non-Af Amer) Cancelled Glucose Cancelled Calcium Cancelled Troponin I Cancelled Influenza A (Rapid) Influenza B (Rapid) 10/03/18 10/03/18 10/03/18 09:35 09:35 09:35 WBC RBC Hgb Hct MCV MCH MCHC RDW Plt Count Seg Neutrophils % Lymphocytes % Monocytes % Eosinophils % Basophils % Absolute Neutrophils Absolute Lymphocytes Absolute Monocytes Absolute Eosinophils Absolute Basophils D-Dimer 0.51 H Sodium 139.7 Potassium 4.5 Chloride 100 Carbon Dioxide 26 Anion Gap 14 BUN 11 Creatinine 0.93 Est GFR ( Amer) > 60 Est GFR (Non-Af Amer) > 60 Glucose 157 H Calcium 10.1 Troponin I < 0.012 Influenza A (Rapid) Influenza B (Rapid) 10/03/18 09:40 WBC RBC Hgb Hct MCV MCH MCHC RDW Plt Count Seg Neutrophils % Lymphocytes % Monocytes % Eosinophils % Basophils % Absolute Neutrophils Absolute Lymphocytes Absolute Monocytes Absolute Eosinophils Absolute Basophils D-Dimer Sodium Potassium Chloride Carbon Dioxide Anion Gap BUN Creatinine Est GFR ( Amer) Est GFR (Non-Af Amer) Glucose Calcium Troponin I Influenza A (Rapid) NEGATIVE Influenza B (Rapid) NEGATIVE Chest X-Ray 10/03/18 08:14 IMPRESSION: LOW LUNG VOLUMES. NO SIGNIFICANT RADIOGRAPHIC FINDING IN THE CHEST. Chest/Abdomen CTA 10/03/18 10:46 IMPRESSION: 1. Clear lungs. 2. No aortic disease. 3. Limited evaluation of the pulmonary arteries. No main pulmonary artery embolus. - Vital Signs Vital signs: Temp Pulse Resp BP Pulse Ox 97.8 F 126 H 23 H 126/87 H 99 10/03/18 07:56 10/03/18 07:56 10/03/18 11:00 10/03/18 10:03 10/03/18 11:00 - Laboratory Result Diagrams: 10/03/18 08:45 10/03/18 09:35 Laboratory results interpreted by me: 10/03/18 10/03/18 10/03/18 08:45 09:35 09:35 RDW 17.3 H D-Dimer 0.51 H Glucose 157 H - EKG Interpretation by Me Additional EKG results interpreted by me: 10/03/18 10:13 Interpreted by myself 1000: Normal sinus rhythm, rate 94, normal axis, borderline poor R wave progression, borderline QT prolongation, QTC 491, no ectopy Discharge - Discharge Clinical Impression: COPD exacerbation Chest pain Qualifiers: Chest pain type: unspecified Qualified Code(s): R07.9 - Chest pain, unspecified Condition: Stable Disposition: HOME, SELF-CARE Instructions: Chronic Obstructive Lung Disease ([facility]) Additional Instructions: Please return to the emergency department if you have any worsening, or concern of your symptoms. Please return to the emergency department if you develop chest pain, difficulty breathing, severe abdominal pain, or ongoing vomiting. Please follow-up with your primary care physician in 2-3 days and any other recommended physicians. If prescribed, take all medications as directed. If you have any questions or concerns do not hesitate to return the emergency department for evaluation. Monitor your glucose at home routinely while on prednisone. Prednisone which is a steroid can make your glucose levels increase. Watch your diet and including decrease carbohydrates and sugars while taking prednisone. Use your albuterol inhaler with spacer 2 puffs every 4 hours Prescriptions: Albuterol Sulfate [Proair HFA Inhalation Aerosol 8.5 gm MDI] 2 puff IH Q4 PRN # 1 mdi PRN Reason: Inhaler, Assist Devices [Space Chamber Plus] 1 each MC DAILY #1 spacer Prednisone [Deltasone] 40 mg PO DAILY #8 tablet Referrals: ED BEASLEY MD [Primary Care Provider] - Follow up in 3-5 days
[2018-10-03 09:17] LABS: ABSOLUTE LYMPHOCYTES (AUTO) 2.7 10^3/uL (0.5-4.7); ABSOLUTE MONOCYTES (AUTO) 0.7 10^3/uL (0.1-1.4); ABSOLUTE NEUT (AUTO) 3.6 10^3/uL (1.7-8.2); BASOPHILS % (AUTO) 0.6 % (0-2); EOSINOPHILS % (AUTO) 0.4 % (0-6); HEMATOCRIT 36.2 % (36.0-47.0); HEMOGLOBIN 12.1 g/dL (12.0-15.5); LYMPHOCYTES % (AUTO) 37.9 % (13-45); MEAN CORPUSCULAR HEMOGLOBIN 30.6 pg (27.0-33.4); MEAN CORPUSCULAR HGB CONC 33.4 g/dL (32.0-36.0); MEAN CORPUSCULAR VOLUME 92 fl (80-97); MONOCYTES % (AUTO) 9.7 % (3-13); PLATELET COUNT 310 10^3/uL (150-450); RED BLOOD COUNT 3.96 10^6/uL (3.72-5.28); RED CELL DISTRIBUTION WIDTH 17.3 % (11.5-14.0); SEGMENTED NEUTROPHILS % (AUTO) 51.4 % (42-78); TOTAL CELLS COUNTED % (AUTO) 100 %; WHITE BLOOD COUNT 7.1 10^3/uL (4.0-10.5)
--- NOTE | 2018-10-03 09:43 | RADIOLOGY REPORT (SQ) ---
EXAM DESCRIPTION: CHEST SINGLE VIEW COMPLETED DATE/TIME: 10/03/2018 9:29 am REASON FOR STUDY: COUGH COMPARISON: 02/24/2018. NUMBER OF VIEWS: One view. TECHNIQUE: Single frontal radiographic view of the chest acquired. LIMITATIONS: None. FINDINGS: LUNGS AND PLEURA: Low lung volumes. No opacities, masses or pneumothorax. No pleural eff usion. MEDIASTINUM AND HILAR STRUCTURES: No masses. No contour abnormality. HEART AND VASCULAR STRUCTURES: Normal size. No evidence for failure. BONES: No acute findings. HARDWARE: None in the chest. OTHER: No other significant finding. IMPRESSION: LOW LUNG VOLUMES. NO SIGNIFICANT RADIOGRAPHIC FINDING IN THE CHEST. TECHNICAL DOCUMENTATION: JOB ID: [id number] [employer]™ [employer]- All Rights Reserved Reading location - IP/workstation name: [email or web address]
[2018-10-03 10:13] LABS: A TYPE INFLUENZA AG NEGATIVE (NEGATIVE); B INFLUENZA AG NEGATIVE (NEGATIVE)
[2018-10-03 10:34] LABS: ANION GAP 14 (5-19); BLOOD UREA NITROGEN 11 mg/dL (7-20); CALCIUM 10.1 mg/dL (8.4-10.2); CARBON DIOXIDE 26 mmol/L (22-30); CHLORIDE 100 mmol/L (98-107); GLUCOSE 157 mg/dL (75-110); POTASSIUM 4.5 mmol/L (3.6-5.0); SODIUM 139.7 mmol/L (137-145)
--- NOTE | 2018-10-03 12:24 | RADIOLOGY REPORT (SQ) ---
EXAM DESCRIPTION: CTA CHEST COMPLETED DATE/TIME: 10/03/2018 12:03 pm REASON FOR STUDY: PE study, chest pain COMPARISON: 02/25/2018. TECHNIQUE: CT scan of the chest performed using helical scanning technique with dynamic intravenous contrast injection. Images reviewed with lung, soft tissue and bone windows. Reconstructed coronal and sagittal MPR images reviewed. Additional 3 dimensional post-processing performed to develop Maximal Intensity Projection images ([place] P). All images stored on PACS. All CT scanners at this facility use dose modulation, iterative reconstruction, and/or weight based d osing when appropriate to reduce radiation dose to as low as reasonably achievable (ALARA). [facility]: Dose Right [facility]: CareDose [facility]: Dose Right [facility]: Teradose 4D [facility]: Smart restOpolis CONTRAST TYPE AND DOSE: contrast/concentration: Isovue 350.00 mg/ml; Total Contrast Delivered: 105.0 ml; Total Saline Delivered: 240.0 ml Limited contrast bolus in the pulmonary arteries. Main pulmonary arteries are adequately assessed bu t peripheral branches are less than optimally seen. Good opacification of the aorta. RENAL FUNCTION: GFR > 60. RADIATION DOSE: CT Rad equipment meets quality standard of care and radiation dose reduction techniq ues were employed. CTDIvol: 39.7 - 49.6 mGy. DLP: 1419 mGy-cm. . LIMITATIONS: None. FINDINGS: LUNGS AND PLEURA: Mild motion artifact. Clear. AORTA AND GREAT VESSELS: No aneurysm. Contrast bolus not optimized for the aorta. HEART: Cardiac enlargement without pericardial effusion. No significant coronary artery calcification s. PULMONARY ARTERIES: No main pulmonary artery clot. Limited as above. HILAR AND MEDIASTINAL STRUCTURES: No identified masses or abnormal nodes. HARDWARE: None in the chest. UPPER ABDOMEN: Fatty liver. THYROID AND OTHER SOFT TISSUES: Mild thyroid enlargement. BONES: No acute or significant finding. 3D MIPS: Confirm above findings. OTHER: No other significant finding. IMPRESSION: 1. Clear lungs. 2. No aortic disease. 3. Limited evaluation of the pulmonary arteries . No main pulmonary artery embolus. COMMENT: Quality ID # [id number]: Final reports with documentation of one or more dose reduction techniques (e.g., Automated exposure control, adjustment of the mA and/or kV according to patient size, use of iterative reconstruction technique) TECHNICAL DOCUMENTATION: JOB ID: [id number]- All Rights Reserved Reading location - IP/workstation name: [email or web address]
[2018-10-03 13:23] VITALS: BP 141/86
--- NOTE | 2018-10-03 14:11 | EKG REPORT ---
SEVERITY:- BORDERLINE ECG - SINUS RHYTHM BORDERLINE R WAVE PROGRESSION, ANTERIOR LEADS BORDERLINE PROLONGED QT INTERVAL : Confirmed by: Dominic Collins MD 03-Oct-2018 14:11:16
== END 2018-10-03 13:20 | disposition home or self-care (01) ==
LOC: ER 07:42
DX: J44.1 Chronic obstructive pulmonary disease with (acute) exacerbation (principal); R07.9 Chest pain, unspecified; I50.9 Heart failure, unspecified; I11.0 Hypertensive heart disease with heart failure; Z86.711 Personal history of pulmonary embolism; Z90.49 Acquired absence of other specified parts of digestive tract
CPT/HCPCS: 93005; 94640 ×2; 99284; 96374; 36415; 85025; 80048; 84484; 85379; 87804; 71045; 71275; 93010; J2930; A9270 ×2; J7620

== ENCOUNTER 2018-10-06 16:55 | Inpatient (IN) | payer MEDICARE, MEDICAID ==
[2018-10-06] MEDS ORDERED: METHYLPREDNISOLONE INJ 125 MG/2 ML SDV IV ONE (17:22)
[2018-10-06] MEDS ORDERED: IPRATROPIUM/ALBUTEROL 0.5-2.5 MG/3 ML AMPUL NEB ONE (17:22)
--- NOTE | 2018-10-06 17:22 | ER Document Report ---
ED Medical Screen (RME) - General Chief Complaint: Shortness Of Breath Stated Complaint: TROUBLE BREATHING Time Seen by Provider: 10/06/18 17:16 Notes: Patient is a 58-year-old female with COPD, not on home oxygen that presents to the emergency department for chief complaint of shortness of breath and difficulty breathing, recently seen, and has been on oral prednisone, without improvement of symptoms. ROS: Other than noted above, the 12 point review of systems was reviewed with the patient and were negative, all pertinent findings are included in the HPI. PHYSICAL EXAMINATION: Vital signs reviewed. GENERAL: Well-appearing, well-nourished and in no acute distress. HEAD: Atraumatic, normocephalic. EYES: Pupils equal round extraocular movements intact, conjunctiva are normal. ENT: Nares patent NECK: Normal range of motion CV: Heart rate tachycardic, regular rhythm LUNGS: Increased work of breathing, diffuse expiratory wheezing noted on lung exam Musculoskeletal: Normal range of motion NEUROLOGICAL: Normal speech PSYCH: Normal mood, normal affect. MDM: Patient seen and examined for rapid initial assessment. Vital signs reviewed. A comprehensive ED assessment and evaluation of the patient, analysis of test results and completion of the medical decision making process will be conducted by additional ED providers. *Note is created using voice recognition software and may contain spelling, syntax or grammatical errors. TRAVEL OUTSIDE OF THE [place] IN LAST 30 DAYS: No - Related Data Allergies/Adverse Reactions: No Known Drug Allergies Allergy (Verified 10/06/18 17:15) tomato [Tomato] Allergy (Verified 10/06/18 17:15) Past Medical History - Social History Frequency of alcohol use: None Drug Abuse: None - Past Medical History Cardiac Medical History: Reports: Hx Congestive Heart Failure - Diastolic, Hx Hypertension, Hx Pulmonary Embolism Denies: Hx Atrial Fibrillation, Hx Coronary Artery Disease, Hx DVT, Hx Heart Attack, Hx Hypercholesterolemia Pulmonary Medical History: Reports: Hx COPD, Hx Sleep Apnea - Uncertain CPAP pressure setting. No home oxygen. Denies: Hx Asthma, Hx Tuberculosis Neurological Medical History: Denies: Hx Seizures Endocrine Medical History: Denies: Hx Diabetes Mellitus Type 1, Hx Diabetes Mellitus Type 2, Hx Hyperthyroidism, Hx Hypothyroidism Renal/ Medical History: Denies: Hx Peritoneal Dialysis GI Medical History: Reports: Hx Gastroesophageal Reflux Disease. Denies: Hx Cirrhosis, Hx Hepatitis Musculoskeltal Medical History: Reports Hx Arthritis, Reports Hx Musculoskeletal Deformity, Reports Hx Musculoskeletal Trauma Psychiatric Medical History: Reports: Hx Anxiety, Hx Depression Traumatic Medical History: Reports: Hx Fractures Infectious Medical History: Denies: Hx Hepatitis Past Surgical History: Reports: Hx Cholecystectomy, Hx Mastectomy - L lumpectomy x2 and R lumpectomy x1 (begnin per patient)., Hx Orthopedic Surgery - Left anterior cruciate ligament repair; left knee replacement., Other - Pericardiocentesis 3 years ago in [place] to drain an effusion. - Immunizations Immunizations up to date: Yes Hx Diphtheria, Pertussis, Tetanus Vaccination: Yes - unk History of Influenza Vaccine for 08/2017 - 01/2018 Season: Yes Influenza Administration Date for 08/2017 - 01/2018 Season: 09/24/17 Physical Exam - Vital signs Vitals: Temp Pulse Resp BP Pulse Ox 99.0 F 103 H 25 H 161/102 H 97 10/06/18 17:01 10/06/18 17:01 10/06/18 17:01 10/06/18 17:01 10/06/18 17:01 Course - Vital Signs Vital signs: Temp Pulse Resp BP Pulse Ox 99.0 F 103 H 25 H 161/102 H 97 10/06/18 17:01 10/06/18 17:01 10/06/18 17:01 10/06/18 17:01 10/06/18 17:01 Doctor's Discharge - Discharge Referrals: ED BEASLEY MD [Primary Care Provider] - Follow up as needed
[2018-10-06] MEDS ORDERED: MAGNESIUM SULFATE/D5W 1 GM/100 ML RTUPB IV ONE ×2 (17:23→19:27)
--- NOTE | 2018-10-06 18:15 | RADIOLOGY REPORT (SQ) ---
EXAM DESCRIPTION: CHEST 2 VIEWS COMPLETED DATE/TIME: 10/06/2018 6:03 pm REASON FOR STUDY: shortness of breath COMPARISON: 10/03/2018 EXAM PARAMETERS: NUMBER OF VIEWS: two views TECHNIQUE: Digital Frontal and Lateral radiographic views of the chest acquired. RADIATION DOSE: NA LIMITATIONS: none FINDINGS: LUNGS AND PLEURA: No opacities, masses or pneumothorax. No pleural effusion. MEDIASTINUM AND HILAR STRUCTURES: No masses or contour abnormalities. HEART AND VASCULAR STRUCTURES: Heart normal size. No evidence for failure. BONES: No acute findings. HARDWARE: None in the chest. OTHER: No other significant finding. IMPRESSION: NO ACUTE RADIOGRAPHIC FINDING IN THE CHEST. TECHNICAL DOCUMENTATION: JOB ID: [id number] [employer]- All Rights Reserved Reading location - IP/workstation name: [email or web address]
[2018-10-06 18:50] LABS: ABSOLUTE BASOPHILS # (AUTO) 0.1 10^3/uL (0.0-0.2); ABSOLUTE LYMPHOCYTES (AUTO) 3.9 10^3/uL (0.5-4.7); ABSOLUTE MONOCYTES (AUTO) 0.7 10^3/uL (0.1-1.4); ABSOLUTE NEUT (AUTO) 5.3 10^3/uL (1.7-8.2); BASOPHILS % (AUTO) 0.8 % (0-2); EOSINOPHILS % (AUTO) 0.4 % (0-6); HEMATOCRIT 35.9 % (36.0-47.0); HEMOGLOBIN 11.9 g/dL (12.0-15.5); LYMPHOCYTES % (AUTO) 38.7 % (13-45); MEAN CORPUSCULAR HEMOGLOBIN 30.3 pg (27.0-33.4); MEAN CORPUSCULAR VOLUME 92 fl (80-97); MONOCYTES % (AUTO) 7.4 % (3-13); PLATELET COUNT 309 10^3/uL (150-450); RED BLOOD COUNT 3.92 10^6/uL (3.72-5.28); RED CELL DISTRIBUTION WIDTH 17.1 % (11.5-14.0); SEGMENTED NEUTROPHILS % (AUTO) 52.7 % (42-78); TOTAL CELLS COUNTED % (AUTO) 100 %; WHITE BLOOD COUNT 10.1 10^3/uL (4.0-10.5)
[2018-10-06 19:24] LABS: ALANINE AMINOTRANSFERASE 48 U/L (9-52); ALBUMIN 4.3 g/dL (3.5-5.0); ALKALINE PHOSPHATASE 87 U/L (38-126); ANION GAP 10 (5-19); ASPARTATE AMINO TRANSFERASE 55 U/L (14-36); BILIRUBIN,DIRECT 0.4 mg/dL (0.0-0.4); BILIRUBIN,TOTAL 0.5 mg/dL (0.2-1.3); BLOOD UREA NITROGEN 15 mg/dL (7-20); CALCIUM 9.7 mg/dL (8.4-10.2); CARBON DIOXIDE 30 mmol/L (22-30); CHLORIDE 101 mmol/L (98-107); GLUCOSE 124 mg/dL (75-110); POTASSIUM 4.3 mmol/L (3.6-5.0); SODIUM 140.9 mmol/L (137-145); TOTAL PROTEIN 7.9 g/dL (6.3-8.2)
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
[2018-10-06 21:14] LABS: VENOUS BLOOD BASE EXCESS 2.4 mmol/L; VENOUS BLOOD HCO3 28.5 mmol/L (20-32); VENOUS BLOOD PCO2 50.5 mmHg (35-63); VENOUS BLOOD PH 7.37 (7.30-7.42)
[2018-10-06] MEDS ORDERED: MAG HYDROX/AL HYDROX/SIMETH SUSP 30 ML UDCUP PO PRN (22:21)
[2018-10-06] MEDS ORDERED: PROMETHAZINE HCL 25 MG TABLET PO PRN (22:21)
[2018-10-06] MEDS ORDERED: PROMETHAZINE HCL INJ 25 MG/1 ML VIAL IV PRN (22:21)
[2018-10-06] MEDS ORDERED: ACETAMINOPHEN 325 MG TABLET PO PRN (22:21)
[2018-10-06] MEDS ORDERED: DEXTROSE 50%-WATER 25 GM/50 ML DISP.SYRIN IV PRN ×2 (22:29)
[2018-10-06] MEDS ORDERED: DEXTROSE 40% GEL 15 GM TUBE PO PRN ×2 (22:29)
[2018-10-06] MEDS ORDERED: GLUCAGON,HUMAN RECOMB 1 MG INJ IM PRN (22:29)
[2018-10-06] MEDS: IPRATROPIUM/ALBUTEROL 0.5-2.5 MG/3 ML AMPUL NEB SCH (22:52)
[2018-10-06] MEDS ORDERED: AZITHROMYCIN 500 MG in DEXTROSE 5%-WATER 250 ML IV SCH (23:00)
[2018-10-06] MEDS ORDERED: AZITHROMYCIN INJ 500 MG VIAL IV ONE (23:21)
[2018-10-07] MEDS: IPRATROPIUM/ALBUTEROL 0.5-2.5 MG/3 ML AMPUL NEB SCH ×4 (02:34→12:13)
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
[2018-10-07 06:34] LABS: HEMATOCRIT 36.5 % (36.0-47.0); HEMOGLOBIN 12.3 g/dL (12.0-15.5); MEAN CORPUSCULAR HEMOGLOBIN 30.8 pg (27.0-33.4); MEAN CORPUSCULAR HGB CONC 33.6 g/dL (32.0-36.0); MEAN CORPUSCULAR VOLUME 92 fl (80-97); PLATELET COUNT 323 10^3/uL (150-450); RED BLOOD COUNT 3.99 10^6/uL (3.72-5.28); RED CELL DISTRIBUTION WIDTH 17.3 % (11.5-14.0); WHITE BLOOD COUNT 10.2 10^3/uL (4.0-10.5)
[2018-10-07] MEDS: CYCLOBENZAPRINE HCL 10 MG TABLET PO SCH ×3 (06:35→21:44)
[2018-10-07] MEDS: METHYLPREDNISOLONE INJ 125 MG/2 ML SDV IV SCH ×3 (06:35→21:43)
[2018-10-07] MEDS: ALPRAZOLAM 0.5 MG TABLET PO SCH ×3 (06:36→21:43)
[2018-10-07] MEDS: TRAMADOL HCL 50 MG TABLET PO SCH ×3 (06:36→21:46)
--- NOTE | 2018-10-07 07:13 | EKG REPORT ---
SEVERITY:- BORDERLINE ECG - SINUS RHYTHM BORDERLINE R WAVE PROGRESSION, ANTERIOR LEADS BORDERLINE PROLONGED QT INTERVAL : Confirmed by: Rodolfo Batista 07-Oct-2018 07:11:46
[2018-10-07 07:19] LABS: ANION GAP 15 (5-19); BLOOD UREA NITROGEN 18 mg/dL (7-20); CALCIUM 9.9 mg/dL (8.4-10.2); CARBON DIOXIDE 25 mmol/L (22-30); CHLORIDE 100 mmol/L (98-107); GLUCOSE 207 mg/dL (75-110); PHOSPHORUS 4.1 mg/dL (2.5-4.5); POTASSIUM 5.2 mmol/L (3.6-5.0); SODIUM 139.9 mmol/L (137-145)
[2018-10-07] MEDS: LANSOPRAZOLE 30 MG TAB.RAP.DR PO SCH (07:46)
[2018-10-07] MEDS: INSULIN LISPRO 100 UNIT/ML 3 ML VIAL SUBCUT PRN ×3 (07:46→17:45)
[2018-10-07] MEDS: ISOSORBIDE MONONITRATE 30 MG TAB.ER.24H PO SCH (09:38)
[2018-10-07] MEDS: ENOXAPARIN SODIUM INJ 40 MG/0.4 ML DISP.SYRIN SUBCUT SCH (09:38)
[2018-10-07] MEDS: FUROSEMIDE 40 MG TABLET PO SCH ×2 (09:38→17:45)
[2018-10-07] MEDS: DULOXETINE HCL 30 MG CAPSULE.DR PO SCH ×2 (09:39→21:46)
[2018-10-07] MEDS: CARVEDILOL 12.5 MG TABLET PO SCH ×2 (09:39→21:45)
[2018-10-07] MEDS: LURASIDONE HCL 40 MG TABLET PO SCH (09:39)
[2018-10-07] MEDS: MELOXICAM 7.5 MG TABLET PO SCH ×2 (09:40→18:05)
[2018-10-07] MEDS: IMIPRAMINE HCL 25 MG TABLET PO SCH ×3 (09:40→18:05)
[2018-10-07 11:29] LABS: ARTERIAL BLOOD BASE EXCESS -0.9 mmol/L; ARTERIAL BLOOD FIO2 3L; ARTERIAL BLOOD H2CO3 1.53 mmol/L (1.05-1.35); ARTERIAL BLOOD HCO3 25.7 mmol/L (20-24); ARTERIAL BLOOD O2 SATURATION 95.4 % (94-98); ARTERIAL BLOOD PCO2 50.8 mmHg (35-45); ARTERIAL BLOOD PH 7.32 (7.35-7.45); ARTERIAL BLOOD PO2 83.7 mmHg (80-100); ARTERIAL BLOOD TOTAL CO2 27.3 mmol/L (21-25)
[2018-10-07] MEDS ORDERED: CEFTRIAXONE 1 GM/D5W RTU 1 GM/50 ML RTUPB IV SCH (13:00)
[2018-10-07] MEDS: CEFTRIAXONE SODIUM 1,000 MG in DEXTROSE 5%-WATER 50 ML IV SCH (14:07)
[2018-10-07] MEDS: LEVALBUTEROL HCL NEB 1.25 MG/3 ML AMPUL NEB PRN (14:20)
--- NOTE | 2018-10-07 20:36 | PROGRESS NOTE E ---
Progress Note NAME: FREDERICK BACH : 1960 AGE: 58Y DATE: 10/07/2018 ROOM: 335 SUBJECTIVE: The patient is currently sitting on the side of the bed. She was eating her lunch. The patient stated that she felt much better than when she came in. Her shortness of breath has improved. She denies any nausea, vomiting, diarrhea. No dizziness, chest pain. No fever or chills. The patient has had a strong cough that has only been producing a significant amount of sputum and the patient did not voice any other concerns at the time of review of systems. REVIEW OF SYSTEMS: The rest of the review of systems was negative. MEDICATIONS: Reviewed. OBJECTIVE: GENERAL: The patient is a 58-year-old -Congolese female who is awake, alert and oriented to person, place, time and situation. She is verbal and conversational. Does not appear to be in acute distress. VITAL SIGNS: Temperature is 98.3, pulse 114, respirations 19, blood pressure 135/99, oxygen saturation 98% currently on room air. SKIN: Warm and dry. No rash, not diaphoretic. HEENT: Pupils equal, round, reactive to light and accommodation. Conjunctivae pink. No evidence of JVP. CVS: Heart is tachycardic, regular. There is no rub. CHEST: Expiratory wheezes are noted throughout both lung alvarez, but she is symmetrical, slightly labored. Does have some conversational dyspnea. ABDOMEN: Soft, nontender, nondistended. BACK: No CVA tenderness or sacral edema. EXTREMITIES: No clubbing, cyanosis or edema. PSYCHIATRIC: Appropriate affect, pleasant mood. DIAGNOSTICS: Lab values are as follows: Hematology obtained on 10/07/2018: WBCs are 10.3, hemoglobin is 10.3, hematocrit is 36.5, platelet count is 323,000. Chemistry obtained on 10/07/2018: Sodium is 139, potassium is 5.2, chloride is 100, carbon dioxide 25, BUN 18, creatinine is 0.79. Glucose 207, calcium is 9.9, phosphorus 4.1. IMPRESSION AND PLAN: 1. CHRONIC OBSTRUCTIVE PULMONARY DISEASE EXACERBATION. Will continue steroids as well as nebulizers. Encourage incentive spirometry and follow. 2. DIASTOLIC DYSFUNCTION. The patient has no evidence of overt heart failure. Will continue current medication. 3. HYPERTENSION. Will continue the patient's home medications. 4. OBSTRUCTIVE SLEEP APNEA. Will continue home CPAP. 5. GASTROESOPHAGEAL REFLUX DISEASE. Will continue home medication. 6. OSTEOARTHRITIS. Will continue the patient's home medication. DISPOSITION: The patient is FULL CODE. Pending patient's symptomatology and diagnostic findings, will reevaluate in the a.m. Time spent on this followup, including assessment, plan, physical examination, patient education and review of records is 25 minutes. DICTATING PHYSICIAN: ED PIERRE NP [id number] PHY#: [id number] ID: [id number] JOB#: [id number] ACCT: [id number] cc: >
[2018-10-07] MEDS: AMLODIPINE BESYLATE 10 MG TABLET PO SCH (21:46)
[2018-10-07] MEDS: DOXEPIN HCL 25 MG CAPSULE PO SCH (22:35)
[2018-10-07] MEDS: AZITHROMYCIN 500 MG in DEXTROSE 5%-WATER 250 ML IV SCH (22:36)
[2018-10-08] MEDS: ALPRAZOLAM 0.5 MG TABLET PO SCH ×4 (05:22→21:29)
[2018-10-08] MEDS: METHYLPREDNISOLONE INJ 125 MG/2 ML SDV IV SCH ×3 (05:22→21:30)
[2018-10-08] MEDS: CYCLOBENZAPRINE HCL 10 MG TABLET PO SCH ×2 (05:23→13:56)
[2018-10-08 05:32] LABS: HEMOGLOBIN 10.9 g/dL (12.0-15.5); MEAN CORPUSCULAR HEMOGLOBIN 29.8 pg (27.0-33.4); MEAN CORPUSCULAR HGB CONC 32.9 g/dL (32.0-36.0); MEAN CORPUSCULAR VOLUME 91 fl (80-97); PLATELET COUNT 303 10^3/uL (150-450); RED BLOOD COUNT 3.65 10^6/uL (3.72-5.28); RED CELL DISTRIBUTION WIDTH 17.8 % (11.5-14.0); WHITE BLOOD COUNT 13.4 10^3/uL (4.0-10.5)
[2018-10-08] MEDS: TRAMADOL HCL 50 MG TABLET PO SCH ×2 (05:35→13:56)
[2018-10-08 05:45] LABS: ANION GAP 15 (5-19); BLOOD UREA NITROGEN 33 mg/dL (7-20); CALCIUM 9.8 mg/dL (8.4-10.2); CARBON DIOXIDE 26 mmol/L (22-30); CHLORIDE 97 mmol/L (98-107); GLUCOSE 214 mg/dL (75-110); SODIUM 137.8 mmol/L (137-145)
[2018-10-08] MEDS: INSULIN LISPRO 100 UNIT/ML 3 ML VIAL SUBCUT PRN ×4 (08:33→22:24)
[2018-10-08] MEDS: LANSOPRAZOLE 30 MG TAB.RAP.DR PO SCH (08:33)
[2018-10-08] MEDS: LEVALBUTEROL HCL NEB 1.25 MG/3 ML AMPUL NEB PRN ×2 (09:12→22:32)
[2018-10-08] MEDS: CEFTRIAXONE SODIUM 1,000 MG in DEXTROSE 5%-WATER 50 ML IV SCH (09:37)
[2018-10-08] MEDS: CARVEDILOL 12.5 MG TABLET PO SCH ×2 (09:39→21:30)
[2018-10-08] MEDS: ASPIRIN 81 MG TABLET, ENT COATED PO SCH (09:39)
[2018-10-08] MEDS: ISOSORBIDE MONONITRATE 30 MG TAB.ER.24H PO SCH (09:40)
[2018-10-08] MEDS: DULOXETINE HCL 30 MG CAPSULE.DR PO SCH ×2 (09:40→21:30)
[2018-10-08] MEDS: FUROSEMIDE 40 MG TABLET PO SCH ×2 (09:40→17:39)
[2018-10-08] MEDS: ENOXAPARIN SODIUM INJ 40 MG/0.4 ML DISP.SYRIN SUBCUT SCH (09:41)
[2018-10-08] MEDS: MELOXICAM 7.5 MG TABLET PO SCH ×2 (09:41→17:39)
[2018-10-08] MEDS: LURASIDONE HCL 40 MG TABLET PO SCH (09:41)
[2018-10-08] MEDS: IMIPRAMINE HCL 25 MG TABLET PO SCH ×3 (09:42→17:42)
[2018-10-08] MEDS ORDERED: PROMETHAZINE HCL INJ 25 MG/1 ML VIAL IV PRN (10:00)
--- NOTE | 2018-10-08 13:34 | Physician Advisory Note ---
Physician Advisor ProgressNote .: Pursuant to the plan for Balwinder Saldaña, I have reviewed the medical record for this patient. Physician Advisor Statement: Labored breathing repeatedly documented. Was in ED on 10/03/18 with labored breathing and O2 sats 95-100% on RA (so that should be her baseline), but this time, O2 sat as low as 94% on 2L O2 (gives P/F ratio of 261, consistent with acute resp failure). Please consider documenting, if you agree: 1. "Acute hypoxemic & hypercapneic Respiratory FAilure, evidenced by O2 sat 94 % on 2L O2 (P/F ratio 261) and persistently labored breathing" 2. "Obesity w/BMI 50.5, w/associated TAMIKA, requiring " [bariatric-rated DME & increased nursing support for moving/turning, ...?] 3. "Chronic diastolic CHF" Thanks! CK
[2018-10-08 14:08] LABS: VENOUS BLOOD PH 7.34 (7.30-7.42)
[2018-10-08 14:09] LABS: VENOUS BLOOD BASE EXCESS 0.1 mmol/L; VENOUS BLOOD HCO3 26.5 mmol/L (20-32); VENOUS BLOOD PCO2 50.8 mmHg (35-63)
[2018-10-08] MEDS ORDERED: CYCLOBENZAPRINE HCL 10 MG TABLET PO PRN (14:19)
[2018-10-08] MEDS ORDERED: TRAMADOL HCL 50 MG TABLET PO PRN (14:20)
[2018-10-08] MEDS ORDERED: GUAIFENESIN 600 MG TABLET.SA PO ONE (16:11)
--- NOTE | 2018-10-08 17:17 | PROGRESS NOTE E ---
Progress Note NAME: FREDERICK BACH : 1960 AGE: 58Y DATE: 10/08/2018 ROOM: 335 SUBJECTIVE: The patient is currently lying in bed. The patient is a little groggy this afternoon. Did do a STAT venous blood gas. The patient's pCO2 was found to be in an acceptable range. The patient herself just describes herself as tired. She denies any nausea, vomiting, diarrhea. No shortness of breath, dizziness, chest pain. No fevers or chills. The patient has been afebrile, blood pressure has been in a good range, and the patient did not voice any other concerns at this times. REVIEW OF SYSTEMS: The rest of the review of systems negative. MEDICATIONS: Have been reviewed. OBJECTIVE: GENERAL: The patient is a 58-year-old -Israeli female who is awake, alert, and oriented to person, time, place, situation. She is verbal, conversational. She does not appear to be in any acute distress. VITAL SIGNS: Temperature is 97.8, pulse 84, respirations 22, blood pressure is 126/66, oxygen saturation is 92% on room air. SKIN: Warm and dry. No rash. She is not diaphoretic. HEENT: Pupils equal, round, and reactive to light and accommodation. Conjunctivae are pink. There is no evidence of JVP. CARDIOVASCULAR: Heart is regular. There is no murmur or rub. CHEST: The patient has expiratory wheezes noted in the upper lung alvarez. ABDOMEN: Soft, nontender, nondistended. BACK: No CVA tenderness, sacral edema. EXTREMITIES: No clubbing, cyanosis, edema. PSYCHIATRIC: Appropriate affect, pleasant mood. DIAGNOSTICS: Lab values are as follows -- Hematology obtained on 10/08/2018; WBC 13.4, hemoglobin is 10.9, hematocrit is 33.0, platelet count is 303,000. Chemistry obtained on 10/08/2018; sodium is 136, potassium 5.0, chloride is 97, carbon dioxide 26, BUN 33, creatinine is 1.05, glucose 214, calcium is 9.8, magnesium is 2.3. IMPRESSION AND PLAN: 1. CHRONIC OBSTRUCTIVE PULMONARY DISEASE EXACERBATION. Will continue steroids, nebulizers. Encourage incentive spirometry and follow. 2. ACUTE ON CHRONIC HYPOXEMIC RESPIRATORY FAILURE. Will continue to titrate O2. 3. DIASTOLIC DYSFUNCTION. The patient has no overt failure. 4. HYPERTENSION. Continue home medications. 5. OBSTRUCTIVE SLEEP APNEA. Will continue CPAP. 6. GASTROESOPHAGEAL REFLUX DISEASE. Will continue home medication. 7. OSTEOARTHRITIS. Will continue the patient's home medication. 8. MORBID OBESITY WITH A BMI OF 50.5. Most likely the patient does have some obesity hypoventilation syndrome. CODE STATUS: The patient is a full code. DISPOSITION: Depending on the patient's symptomatology and diagnostic findings will reevaluate in the a.m. TIME SPENT: On this follow up, including assessment and plan, physical examination, patient education, review of record is 25 minutes. DICTATING PHYSICIAN: ED PIERRE NP [id number] PHY#: [id number] ID: [id number] JOB#: [id number] ACCT: [id number] cc: >
[2018-10-08] MEDS: GUAIFENESIN 600 MG TABLET.SA PO SCH (21:29)
[2018-10-08] MEDS: AMLODIPINE BESYLATE 10 MG TABLET PO SCH (21:29)
[2018-10-08] MEDS: DOXEPIN HCL 25 MG CAPSULE PO SCH (21:31)
[2018-10-08] MEDS: AZITHROMYCIN 500 MG in DEXTROSE 5%-WATER 250 ML IV SCH (21:39)
[2018-10-09] MEDS: ALPRAZOLAM 0.5 MG TABLET PO SCH ×3 (05:22→21:59)
[2018-10-09] MEDS: METHYLPREDNISOLONE INJ 125 MG/2 ML SDV IV SCH ×3 (05:22→21:58)
[2018-10-09 07:06] LABS: ANION GAP 12 (5-19); BLOOD UREA NITROGEN 48 mg/dL (7-20); CALCIUM 9.5 mg/dL (8.4-10.2); CARBON DIOXIDE 28 mmol/L (22-30); CHLORIDE 97 mmol/L (98-107); GLUCOSE 222 mg/dL (75-110); POTASSIUM 4.8 mmol/L (3.6-5.0)
[2018-10-09] MEDS: LANSOPRAZOLE 30 MG TAB.RAP.DR PO SCH (08:46)
--- NOTE | 2018-10-09 09:11 | PROGRESS NOTE E ---
Progress Note NAME: FREDERICK BACH : 1960 AGE: 58Y DATE: 10/09/2018 ROOM: 335 SUBJECTIVE: The patient is sitting on the side of the bed. She states she feels better today than prior; however, she is still dyspneic and wheezing. The patient was noted to have small areas of blood clots in her urine. The patient has had a good appetite. No reported episodes of vomiting nor diarrhea. The patient does not voice any other concerns at this time. REVIEW OF SYSTEMS: The rest of the review of systems is negative. MEDICATIONS: Medications have been reviewed. OBJECTIVE: GENERAL: The patient is a 58-year-old -Burkin[place] female who is awake, alert, and oriented to person, place, time, and situation. She is verbal, conversational, does not appear to be distressed. VITAL SIGNS: As follows: Temperature is 98.2, pulse 88, respirations 18, blood pressure 125/72, oxygen saturation is 96% on 28% FIO2 on CPAP. SKIN: Warm and dry. No rash, not diaphoretic. HEENT: Pupils are reactive. No evidence of JVP. CARDIOVASCULAR: Normal sinus rhythm. CHEST: Patient does have expiratory wheezes noted throughout both lung alvarez, symmetrical, slightly labored. ABDOMEN: Obese. EXTREMITIES: No significant edema. PSYCHIATRIC: Odd affect. DIAGNOSTICS: Lab values are as follows. Hematology obtained on 10/08/2018: WBC is 13.4, hemoglobin is 10.9, hematocrit is 33.0, platelet count is 303,000. Chemistry obtained on 10/09/2018: Sodium is 137, potassium 4.8, chloride 97, carbon dioxide 28, BUN 48, creatinine is 1.10, glucose 222, calcium is 9.5, magnesium is 2.4. IMPRESSION AND PLAN: 1. CHRONIC OBSTRUCTIVE PULMONARY DISEASE EXACERBATION. Will continue steroids and nebulizers. Encourage incentive spirometry, flutter valve, follow. 2. ACUTE ON CHRONIC HYPOXEMIC RESPIRATORY FAILURE. Will continue to titrate O2 as well as steroids. 3. DIASTOLIC DYSFUNCTION. No evidence of acute failure. 4. HYPERTENSION. Will continue home medications. 5. OBSTRUCTIVE SLEEP APNEA. Continue CPAP. 6. MORBID OBESITY WITH A BMI 50.5. Most likely the patient does have obesity hypoventilation syndrome which is contributing to #1 and 2. 7. OSTEOARTHRITIS. Continue home medication. 8. GERD. Will continue home medications. 9. BIPOLAR DISORDER. Will continue the patient's home medications. DISPOSITION: THE PATIENT IS A FULL CODE. Pending the patient's symptomatology and diagnostic findings, will re-evaluate in the a.m. Time spent on this followup, including assessment/plan, physical examination, patient education, and review of records, is 25 minutes. DICTATING PHYSICIAN: ED PIERRE NP [id number] PHY#: [id number] ID: [id number] JOB#: [id number] ACCT: [id number] cc: >
[2018-10-09] MEDS: CEFTRIAXONE SODIUM 1,000 MG in DEXTROSE 5%-WATER 50 ML IV SCH (11:45)
[2018-10-09] MEDS: DULOXETINE HCL 30 MG CAPSULE.DR PO SCH ×2 (11:46→21:58)
[2018-10-09] MEDS: CARVEDILOL 12.5 MG TABLET PO SCH ×2 (11:47→21:58)
[2018-10-09] MEDS: ASPIRIN 81 MG TABLET, ENT COATED PO SCH (11:47)
[2018-10-09] MEDS: ISOSORBIDE MONONITRATE 30 MG TAB.ER.24H PO SCH (11:47)
[2018-10-09] MEDS: IMIPRAMINE HCL 25 MG TABLET PO SCH ×3 (11:51→17:17)
[2018-10-09] MEDS: GUAIFENESIN 600 MG TABLET.SA PO SCH ×2 (11:51→21:58)
[2018-10-09] MEDS: FUROSEMIDE 40 MG TABLET PO SCH ×2 (11:51→17:17)
[2018-10-09] MEDS: LURASIDONE HCL 40 MG TABLET PO SCH (11:52)
[2018-10-09] MEDS: MELOXICAM 7.5 MG TABLET PO SCH ×2 (11:53→17:17)
[2018-10-09] MEDS: ENOXAPARIN SODIUM INJ 40 MG/0.4 ML DISP.SYRIN SUBCUT SCH (11:53)
[2018-10-09 12:25] LABS: APPEARANCE,URINE CLEAR; BILIRUBIN,URINE NEGATIVE (NEGATIVE); COLOR,URINE STRAW; GLUCOSE, URINE NEGATIVE (NEGATIVE); KETONES,URINE NEGATIVE (NEGATIVE); LEUKOCYTE ESTERASE,URINE NEGATIVE (NEGATIVE); NITRITE,URINE NEGATIVE (NEGATIVE); PROTEIN,URINE NEGATIVE (NEGATIVE); URINE SPECIFIC GRAVITY 1.016; UROBILINOGEN,URINE NEGATIVE mg/dL (<2.0)
[2018-10-09] MEDS: INSULIN LISPRO 100 UNIT/ML 3 ML VIAL SUBCUT PRN ×3 (12:36→22:38)
[2018-10-09] MEDS: AMLODIPINE BESYLATE 10 MG TABLET PO SCH (21:58)
[2018-10-09] MEDS: DOXEPIN HCL 25 MG CAPSULE PO SCH (21:59)
[2018-10-09] MEDS ORDERED: AZITHROMYCIN 250 MG TABLET PO SCH (22:00)
[2018-10-10] MEDS: ALPRAZOLAM 0.5 MG TABLET PO SCH ×2 (05:53→14:35)
[2018-10-10] MEDS: METHYLPREDNISOLONE INJ 125 MG/2 ML SDV IV SCH ×2 (05:54→13:24)
[2018-10-10] MEDS: LANSOPRAZOLE 30 MG TAB.RAP.DR PO SCH (07:55)
[2018-10-10] MEDS: INSULIN LISPRO 100 UNIT/ML 3 ML VIAL SUBCUT PRN ×2 (07:55→11:34)
[2018-10-10] MEDS: DULOXETINE HCL 30 MG CAPSULE.DR PO SCH (09:09)
[2018-10-10] MEDS: LURASIDONE HCL 40 MG TABLET PO SCH (09:09)
[2018-10-10] MEDS: CARVEDILOL 12.5 MG TABLET PO SCH (09:09)
[2018-10-10] MEDS: ISOSORBIDE MONONITRATE 30 MG TAB.ER.24H PO SCH (09:10)
[2018-10-10] MEDS: MELOXICAM 7.5 MG TABLET PO SCH (09:10)
[2018-10-10] MEDS: FUROSEMIDE 40 MG TABLET PO SCH (09:10)
[2018-10-10] MEDS: IMIPRAMINE HCL 25 MG TABLET PO SCH ×2 (09:10→15:08)
[2018-10-10] MEDS: GUAIFENESIN 600 MG TABLET.SA PO SCH (09:10)
[2018-10-10] MEDS: ENOXAPARIN SODIUM INJ 40 MG/0.4 ML DISP.SYRIN SUBCUT SCH (09:11)
[2018-10-10] MEDS: CEFTRIAXONE SODIUM 1,000 MG in DEXTROSE 5%-WATER 50 ML IV SCH (09:11)
[2018-10-10] MEDS: ASPIRIN 81 MG TABLET, ENT COATED PO SCH (09:11)
[2018-10-10] MEDS: LEVALBUTEROL HCL NEB 1.25 MG/3 ML AMPUL NEB PRN (10:14)
[2018-10-10 11:39] VITALS: BP 134/72
[2018-10-10] MEDS ORDERED: FLUCONAZOLE 100 MG TABLET PO ONE (12:00)
--- NOTE | 2018-10-11 14:02 | DISCHARGE SUMMARY E ---
Discharge Summary NAME: FREDERICK BACH : 1960 AGE: 58Y ADMITTED: 10/07/2018 DISCHARGED: 10/10/2018 CODE STATUS: Full code. PRIMARY CARE PROVIDER: Des Marquez M.D. DISCHARGE DIAGNOSES: 1. Chronic obstructive pulmonary disease exacerbation. 2. Acute on chronic hypoxemic and hypercapnic respiratory failure secondary to #1, this improved. 3. Diastolic dysfunction without evidence of failure. 4. Hypertension. 5. Obstructive sleep apnea. 6. Morbid obesity with a BMI of 50.5. 7. Osteoarthritis. 8. Gastroesophageal reflux disease. 9. Bipolar disorder. 10. Vaginal Angela. DISCHARGE MEDICATIONS: 1. Coreg 12.5 mg p.o. q.12 hours. 2. Prednisone 60 mg taper. 3. Mucinex 1200 mg p.o. q.12 hours. 4. Ceftin 500 mg p.o. b.i.d., 14 tablets with zero refills. 5. Zithromax TRI-ELI. 6. Ultram 50 mg p.o. q.8 hours. 7. Zantac 150 mg p.o. daily. 8. Inderal 10 mg p.o. t.i.d. 9. Omeprazole 40 mg p.o. b.i.d. 10. Latuda 80 mg p.o. daily. 11. Lisinopril 40 mg daily. 12. Imdur 30 mg p.o. daily. 13. Tofranil 50 mg p.o. t.i.d. 14. Lasix 40 mg p.o. daily. 15. Lunesta 5 mg p.o. at hour of sleep. 16. Cymbalta 60 mg p.o. q.12 hours. 17. Doxepin 50 mg at hour of sleep. 18. Flexeril 5 mg p.o. q.8 hours. 19. Aspirin 81 mg p.o. daily. 20. Xanax 1 mg p.o. q.8 hours. 21. ProAir HFA 2 puffs inhalation q.4 hours p.r.n. ACTIVITY: Recommend 45 minutes of cardiovascular activity most days of the week as tolerated. DIET: Heart healthy, low calorie. CONDITION: Fair. DIAGNOSTICS: Lab values are as follows - Hematology obtained on 10/08/2018; WBC 10.2, hemoglobin is 12.3, hematocrit is 36.5, platelet count is 323,000. Venous blood gas obtained on 10/08/2018; pH of 7.34, pCO2 of 50.8, pO2 is 26.5. Chemistry obtained on 10/10/2018; sodium is 137, potassium 4.8, chloride is 97, carbon dioxide 28, BUN 48, creatinine is 1.17, glucose 222, calcium is 9.5, phosphorus is 4.1, magnesium is 2.4, bilirubin is 0.5, AST 55, ALT 48, alkaline phosphatase 87. Troponin is 0.012. BNP is 132. Total protein 7.9, albumin is 4.3. Urinalysis obtained on 10/09/2018; color straw, appearance clear, pH is 5.0, specific gravity is 1.016, protein negative, glucose negative, ketones negative, occult blood small, nitrite negative, bilirubin negative, urobilinogen is negative, leukocyte esterase is negative, WBC 0, RBC 0. Microbiology; sputum culture obtained on 10/07/2018 has no growth at this time. Chest x-ray obtained on 10/06/2018 reveals no acute radiographic findings of the chest. EKG obtained on 10/06/2018 reveals sinus rhythm. PHYSICAL EXAMINATION: GENERAL: On examination the patient is a well-developed, well-nourished, 58-year-old -[place]ian female who is awake, alert, and oriented to person, place, time, and situation. She is verbal, conversational, ambulatory. She does not appear to be in any acute distress. VITAL SIGNS: Temperature is 97.8, pulse 85, respirations 22, blood pressure is 156/90, oxygen saturation is 92% ambulating on room air. SKIN: Warm and dry. No rash. She is not diaphoretic. HEENT: Pupils equal, round, and reactive to light and accommodation. Conjunctivae pink. No evidence of JVP. CARDIOVASCULAR SYSTEM: Heart is regular. There is no murmur or rub. CHEST: Slight wheezes noted in upper lung alvarez, but overall much improved in comparison to the day before. ABDOMEN: Soft, nontender, nondistended. BACK: No CVA tenderness, sacral edema. EXTREMITIES: No clubbing, cyanosis, or edema. PSYCHIATRIC: Appropriate affect and pleasant mood. HISTORY OF PRESENT ILLNESS: The patient is a 58-year-old -Romanian female with a past medical history of morbid obesity and COPD. The patient presented to the emergency department with a chief complaint of shortness of breath. The patient stated that her symptoms started last Friday after she recommend her flu shot. The patient denied runny nose or sore throat, but having progressive shortness of breath associated with a productive cough as well as audible wheezes. The patient denied any fever but admitted to having chills, but no nausea, vomiting, or chest pain. The patient stated that she presented to the ER 3 days prior and was discharged home with prednisone. The patient's symptoms partially resolved but were getting worse. The patient is not a smoker, but has a history of COPD. The patient did have a CTA which was negative for pulmonary embolism. While in the emergency department the patient's sats were 97% on 2 liters. She was tachypneic and had findings consistent of hypoxia and hypercapnia and was referred to the hospitalist for admission and management. HOSPITAL COURSE: The patient was admitted to [facility]. The patient was placed on steroids as well as antibiotic coverage given her sputum production. The patient's symptoms did improve. The patient was covered with a CPAP at night as she would at home and everyday the patient continued to improve. The patient was able to ambulate on room air without issue with a maximum drop in her oxygen level was 92% while ambulating. The patient has been producing good sputum with flutter valve. The patient has specifically asked for Diflucan as she states that she has gotten numerous times in the past for a candidal yeast related to antibiotic use. I cautioned the patient with this given her list of antipsychotics and antibiotics, however, the patient states that she has taken the medicine in the past with all the above without issue. We will give it now in the hospital so we can monitor the patient prior to discharge. DISCHARGE PLAN: The patient is advised to follow with her primary care provider within 1 to 2 weeks for hospital follow up. TIME SPENT: On this discharge including assessment and plan, physical examination, patient education, review of records is 25 minutes. DICTATING PHYSICIAN: DES PIERRE NP [id number] PHY#: [id number] ID: [id number] JOB#: [id number] ACCT: [id number] cc:Rossana MCDONNELL NP >
== END 2018-10-10 15:05 | disposition home or self-care (01) | DRG 189 ==
LOC: ER 16:55 → INTOOBSV 22:16 → EH 22:16 → OBSVTOIN 22:16 → 3S 23:50 → OBSVTOIN 10-07 15:29
PROVIDERS: ADMIT Internal Medicine; ATTEND Internal Medicine
PROC: 5A09457 Assistance with Respiratory Ventilation, 24-96 Consecutive Hours, Continuous Positive Airway Pressure (ICD-10-PCS; principal; 2018-10-07)
DX: J96.22 Acute and chronic respiratory failure with hypercapnia (principal); J44.1 Chronic obstructive pulmonary disease with (acute) exacerbation; Z68.43 Body mass index [BMI] 50.0-59.9, adult; J96.21 Acute and chronic respiratory failure with hypoxia; B37.3 Candidiasis of vulva and vagina; I51.89 Other ill-defined heart diseases; I10 Essential (primary) hypertension; G47.33 Obstructive sleep apnea (adult) (pediatric); E66.01 Morbid (severe) obesity due to excess calories; F31.9 Bipolar disorder, unspecified; M19.90 Unspecified osteoarthritis, unspecified site; K21.9 Gastro-esophageal reflux disease without esophagitis; Z79.82 Long term (current) use of aspirin; Z79.899 Other long term (current) drug therapy
CPT/HCPCS: 36415; 71046; 80048; 80053; 81001; 82803; 82962; 83735; 83880; 84100; 84484; 85025; 85027; 87070; 87205; 93005; 93010; 94640; 94660; 94667; 94668; 96365; 96366; 96375; 99285; G0378; J0456; J0696; J1650; J1815; J2930; J3475; J3490; J7060; J7620

== ENCOUNTER 2019-03-04 21:22 | Emergency (ER) | payer MEDICARE ==
[2019-03-05] MEDS ORDERED: CETIRIZINE 10 MG TABLET PO ONE (02:04)
--- NOTE | 2019-03-05 02:07 | ER Document Report ---
ED General - General Chief Complaint: Insect Bite Stated Complaint: POSSIBLE SPIDER BITE Time Seen by Provider: 03/05/19 00:20 Primary Care Provider: ED BEASLEY MD [Primary Care Provider] - Follow up as needed Notes: Patient is a 58-year-old female with a past medical history of morbid obesity, hypertension, diabetes, presents complaining of 2-3 days of swelling, pain and itching on her left lateral thigh. States that she could have been bit by an insect and since that time has noted that sometimes there is swelling or even redness to the area although there is none present now by her own report. S tates that the area is intensely pruritic intermittently. Scratching the area seems to temporarily relieve the itching but then only make it worse thereafter. She has not taken anything to try to treat her symptoms. She denies any history of similar symptoms in the past. She denies any difficulty walking, fever or constitutional symptoms. No trauma to the area. She has not seen her primary doctor regarding today's concerns. TRAVEL OUTSIDE OF THE [place] IN LAST 30 DAYS: No - Related Data Allergies/Adverse Reactions: No Known Drug Allergies Allergy (Verified 10/06/18 17:15) tomato [Tomato] Allergy (Verified 10/06/18 17:15) Past Medical History - General Information source: Patient - Social History Smoking Status: Never Smoker Chew tobacco use (# tins/day): No Frequency of alcohol use: Social Drug Abuse: None Lives with: Family Family History: Arthritis, Hypertension, Malignancy, Thyroid Disfunction Patient has suicidal ideation: No Patient has homicidal ideation: No - Past Medical History Cardiac Medical History: Reports: Hx Congestive Heart Failure - Diastolic, Hx Hypertension, Hx Pulmonary Embolism Denies: Hx Atrial Fibrillation, Hx Coronary Artery Disease, Hx DVT, Hx Heart Attack, Hx Hypercholesterolemia Pulmonary Medical History: Reports: Hx COPD, Hx Sleep Apnea - Uncertain CPAP pressure setting. No home oxygen. Denies: Hx Asthma, Hx Tuberculosis Neurological Medical History: Denies: Hx Seizures Endocrine Medical History: Denies: Hx Diabetes Mellitus Type 1, Hx Diabetes Mellitus Type 2, Hx Hyperthyroidism, Hx Hypothyroidism Renal/ Medical History: Denies: Hx Peritoneal Dialysis GI Medical History: Reports: Hx Gastroesophageal Reflux Disease. Denies: Hx Cirrhosis, Hx Hepatitis Musculoskeletal Medical History: Reports Hx Arthritis, Reports Hx Musculoskeletal Deformity, Reports Hx Musculoskeletal Trauma Psychiatric Medical History: Reports: Hx Anxiety, Hx Depression Traumatic Medical History: Reports: Hx Fractures Infectious Medical History: Denies: Hx Hepatitis Past Surgical History: Reports: Hx Cholecystectomy, Hx Mastectomy - L lumpectomy x2 and R lumpectomy x1 (begnin per patient)., Hx Orthopedic Surgery - Left anterior cruciate ligament repair; left knee replacement., Other - Pericardiocentesis 3 years ago in [place] to drain an effusion. - Immunizations Immunizations up to date: Yes Hx Diphtheria, Pertussis, Tetanus Vaccination: Yes - unk Hx Pneumococcal Vaccination: 04/13/14 Review of Systems - Review of Systems Notes: Constitutional: Negative for fever. HENT: Negative for sore throat. Eyes: Negative for visual changes. Cardiovascular: Negative for chest pain. Respiratory: Negative for shortness of breath. Gastrointestinal: Negative for abdominal pain, vomiting or diarrhea. Genitourinary: Negative for dysuria. Musculoskeletal: Negative for back pain. Skin: Positive for report of rash in the left lateral thigh Neurological: Negative for headaches, weakness or numbness. 10 point ROS negative except as marked above and in HPI. Physical Exam - Vital signs Vitals: Temp Pulse Resp BP Pulse Ox 98.5 F 80 24 H 166/97 H 97 03/04/19 22:21 03/04/19 22:21 03/04/19 22:21 03/04/19 22:21 03/04/19 22:21 Interpretation: Hypertensive Notes: PHYSICAL EXAMINATION: GENERAL: Well-appearing, well-nourished and in no acute distress. HEAD: Atraumatic, normocephalic. EYES: Pupils equal round and reactive to light, extraocular movements intact, sclera anicteric, conjunctiva are normal. ENT: nares patent, oropharynx clear without exudates. Moist mucous membranes. NECK: Normal range of motion, supple without lymphadenopathy LUNGS: Breath sounds clear to auscultation bilaterally and equal. No wheezes rales or rhonchi. HEART: Regular rate and rhythm without murmurs ABDOMEN: Soft, nontender, normoactive bowel sounds. No guarding, no rebound. No masses appreciated. EXTREMITIES: Normal range of motion, no pitting or edema. No cyanosis. NEUROLOGICAL: No focal neurological deficits. Moves all extremities spontaneously and on command. PSYCH: Normal mood, normal affect. SKIN: Warm, Dry, normal turgor, no rashes or lesions noted. Course - Re-evaluation Re-evalutation: 03/05/19 02:05 Patient presents with concerns of swelling and itching to the lateral aspect of her left thigh. On exam there is no appreciable erythema, swelling or induration to the area. It is obvious that the patient has been itching the ar ea. The remainder of her exam is unremarkable without any evidence of induration, abscess or cellulitis. Given the agents reported pruritus to the area of recommended cetirizine will provide topical triamcinolone. Vitals otherwise within acceptable limits. I do not believe there is an indication for labs at this time. Advise close outpatient follow-up. At this time will discharge with return precautions and follow-up recommendations. Verbal discharge instructions given a the bedside and opportunity for questions given. Medication warnings reviewed. Patient is in agreement with this plan and has verbalized understanding of return precautions and the need for primary care follow-up in the next 24-72 hours. - Vital Signs Vital signs: Temp Pulse Resp BP Pulse Ox 97.8 F 80 18 143/94 H 99 03/05/19 02:30 03/05/19 02:30 03/05/19 02:30 03/05/19 02:30 03/05/19 02:30 Discharge - Discharge Clinical Impression: Skin irritation, Pruritus Condition: Good Disposition: HOME, SELF-CARE Additional Instructions: You were seen today for an area of skin irritation. This can be either allergic, autoimmune, or environmental in origin. You can continue to take cetirizine 10mg up to 3 times daily as needed for itching. Apply the topical steroid cream that has been prescribed as needed for severe inching. IF YOU DEVELOP DIFFICULTY BREATHING, VOMITING, LIGHTHEADEDNESS, IMMEDIATELY AND CALL 911. Please follow-up with your primary care physician in the next 1-2 days. Prescriptions: Triamcinolone Acetonide 80 gm TP TID 10 Days #80 oint..gm. Referrals: ED BEASLEY MD [Primary Care Provider] - Follow up as needed
[2019-03-05 02:32] VITALS: BP 143/94
== END 2019-03-05 02:33 | disposition home or self-care (01) ==
LOC: ER 21:22
DX: R21 Rash and other nonspecific skin eruption (principal); L29.9 Pruritus, unspecified; S70.362A Insect bite (nonvenomous), left thigh, initial encounter; W57.XXXA Bitten or stung by nonvenomous insect and other nonvenomous arthropods, initial encounter; I50.9 Heart failure, unspecified; I11.0 Hypertensive heart disease with heart failure; J44.9 Chronic obstructive pulmonary disease, unspecified
CPT/HCPCS: 99281; A9270

== ENCOUNTER → 2019-05-14 | Outpatient (CLI) | payer MEDICAID, MEDICARE ==
--- NOTE | 2019-05-14 13:11 | WOMENS IMAGING REPORT ---
EXAM DESCRIPTION: 3D SCREENING MAMMO BILAT COMPLETED DATE/TIME: 05/14/2019 11:38 am REASON FOR STUDY: Z12.31 ENCOUNTER FOR SCREENING MAMMOGRAM FOR MALIGNANT NEOPLASM OF BREAST Z12.31 ENCNTR SCREEN MAMMOGRAM FOR MALIGNANT NEOPLASM OF TANIA COMPARISON: Multiple since 2013 EXAM PARAMETERS: Views: Standard craniocaudal and mediolateral oblique views of each breast recorded using digital acquisition and breast tomosynthesis. Read with the assistance of CAD. .[facility] - [place] Licensed Retail Supervisor Version 9.2 LIMITATIONS: None. FINDINGS: No suspicious masses, suspicious calcifications or architectural distortion. No areas of c oncern. IMPRESSION: NEGATIVE MAMMOGRAM. BIRADS 1. BREAST DENSITY: a. The breasts are almost entirely fatty. BIRAD: ASSESSMENT: 1 NEGATIVE RECOMMENDATION: ROUTINE SCREENING COMMENT: The patient has been notified of the results by letter per MQSA requirements. Additional no tification policies are in place for contacting patient with suspicious or incomplete findings. Quality ID #225: The [employer] recommends an annual screening mammogram for women aged 40 years or over. This facility utilizes a reminder system to ensure that all patients receive reminder letters, and/or direct phone calls for appointments. This includes reminders for routine scr eening mammograms, diagnostic mammograms, or other Breast Imaging Interventions when appropriate. Th is patient will be placed in the appropriate reminder system. TECHNICAL DOCUMENTATION: FINDING NUMBER: (1) ASSESSMENT: (1) JOB ID: [id number] [employer]- All Rights Reserved Reading location - IP/workstation name: [email or web address]
== END ==
LOC: WI 11:04
PROVIDERS: ATTEND Internal Medicine
DX: Z12.31 Encounter for screening mammogram for malignant neoplasm of breast (principal)
CPT/HCPCS: 77063; 77067

== ENCOUNTER → 2020-05-11 | Outpatient (CLI) | payer MEDICAID, MEDICARE ==
--- NOTE | 2020-05-11 12:42 | WOMENS IMAGING REPORT ---
EXAM DESCRIPTION: 3D SCREENING MAMMO BILAT IMAGES COMPLETED DATE/TIME: 05/11/2020 11:59 am REASON FOR STUDY: Z12.31 SCREENING MAMMO Z12.31 ENCNTR SCREEN MAMMOGRAM FOR MALIGNANT NEOPLASM OF B RE COMPARISON: 05/14/2019 and 01/13/2018. EXAM PARAMETERS: Views: Standard craniocaudal and mediolateral oblique views of each breast recorded using digital acquisition and breast tomosynthesis. Read with the assistance of CAD. .[facility] - [employer] Operator Version 9.2 LIMITATIONS: None. FINDINGS: No suspicious masses, suspicious calcifications or architectural distortion. No areas of c oncern. IMPRESSION: NEGATIVE MAMMOGRAM. BIRADS 1. BREAST DENSITY: a. The breasts are almost entirely fatty. BIRAD: ASSESSMENT: 1 NEGATIVE RECOMMENDATION: ROUTINE SCREENING COMMENT: The patient has been notified of the results by letter per MQSA requirements. Additional no tification policies are in place for contacting patient with suspicious or incomplete findings. Quality ID #225: The [employer] recommends an annual screening mammogram for women aged 40 years or over. This facility utilizes a reminder system to ensure that all patients receive reminder letters, and/or direct phone calls for appointments. This includes reminders for routine scr eening mammograms, diagnostic mammograms, or other Breast Imaging Interventions when appropriate. Th is patient will be placed in the appropriate reminder system. TECHNICAL DOCUMENTATION: FINDING NUMBER: (1) ASSESSMENT: (1) JOB ID: [id number] 2010 [employer]- All Rights Reserved Reading location - IP/workstation name: [email or web address]
== END ==
LOC: WI 11:15
PROVIDERS: ATTEND Obstetrics & Gynecology Gynecology
DX: Z12.31 Encounter for screening mammogram for malignant neoplasm of breast (principal)
CPT/HCPCS: 77063; 77067

== ENCOUNTER 2020-07-14 12:08 | Emergency (ER) | payer MEDICARE, MEDICAID ==
[2020-07-14] MEDS ORDERED: ACETAMINOPHEN 325 MG TABLET PO ONE (12:48)
--- NOTE | 2020-07-14 12:48 | ER Document Report ---
ED Medical Screen (RME) - General Chief Complaint: Abscess Stated Complaint: ABSCESS/RIGHT ARMPIT Time Seen by Provider: 07/14/20 12:43 Primary Care Provider: ED BEASLEY MD [Primary Care Provider] - Follow up as needed Information source: Patient Notes: HPI; 59-year-old female past medical history significant for hypertension, diabetes, hyperlipidemia, coronary artery disease presents to the emergency room complaining of pain and swelling to her right axillary region for the past 4 days. No history of previous abscesses. Tried putting topical salve on it without relief. PE: Alert and oriented x3. Lungs: Clear to auscultation without rales, rhonchi, wheezes. Heart: Regular rate rhythm without murmurs, rubs, gallops. There is a large fluctuant abscess to the right axillary region. It is warm and tender to palpation. There is no active discharge or draining noted at this time. I have greeted and performed a rapid initial assessment of this patient. A comprehensive ED assessment and evaluation of the patient, analysis of test results and completion of the medical decision making process will be conducted by additional ED providers. I have specifically instructed the patient or family members with the patient to immediately return to any nursing staff should anything change in the patient's condition or with their chief complaint. TRAVEL OUTSIDE OF THE [place] IN LAST 30 DAYS: No - Related Data Allergies/Adverse Reactions: No Known Drug Allergies Allergy (Verified 10/06/18 17:15) tomato [Tomato] Allergy (Verified 10/06/18 17:15) Past Medical History - Past Medical History Cardiac Medical History: Reports: Hx Congestive Heart Failure - Diastolic, Hx Hypertension, Hx Pulmonary Embolism Denies: Hx Atrial Fibrillation, Hx Coronary Artery Disease, Hx DVT, Hx Heart Attack, Hx Hypercholesterolemia Pulmonary Medical History: Reports: Hx COPD, Hx Sleep Apnea - Uncertain CPAP pressure setting. No home oxygen. Denies: Hx Asthma, Hx Tuberculosis Neurological Medical History: Denies: Hx Seizures Endocrine Medical History: Denies: Hx Diabetes Mellitus Type 1, Hx Diabetes Mellitus Type 2, Hx Hyperthyroidism, Hx Hypothyroidism Renal/ Medical History: Denies: Hx Peritoneal Dialysis GI Medical History: Reports: Hx Gastroesophageal Reflux Disease. Denies: Hx Cirrhosis, Hx Hepatitis Musculoskeltal Medical History: Reports Hx Arthritis, Reports Hx Musculoskeletal Deformity, Reports Hx Musculoskeletal Trauma Psychiatric Medical History: Reports: Hx Anxiety, Hx Depression Traumatic Medical History: Reports: Hx Fractures Infectious Medical History: Denies: Hx Hepatitis Past Surgical History: Reports: Hx Cholecystectomy, Hx Mastectomy - L lumpectomy x2 and R lumpectomy x1 (begnin per patient)., Hx Orthopedic Surgery - Left anterior cruciate ligament repair; left knee replacement., Other - Pericardiocentesis 3 years ago in [place] to drain an effusion. - Immunizations Immunizations up to date: Yes Hx Diphtheria, Pertussis, Tetanus Vaccination: Yes - unk Physical Exam - Vital signs Vitals: Temp Pulse Resp BP Pulse Ox 98.5 F 92 20 166/97 H 97 07/14/20 12:16 07/14/20 12:16 07/14/20 12:16 07/14/20 12:16 07/14/20 12:16 Course - Vital Signs Vital signs: Temp Pulse Resp BP Pulse Ox 98.5 F 92 20 166/97 H 97 07/14/20 12:16 07/14/20 12:16 07/14/20 12:16 07/14/20 12:16 07/14/20 12:16 Doctor's Discharge - Discharge Referrals: ED BEASLEY MD [Primary Care Provider] - Follow up as needed
[2020-07-14] MEDS ORDERED: LIDOCAINE 1%/EPINEPHRINE INJ 20 ML VIAL INJ ONE (20:54)
--- NOTE | 2020-07-14 20:56 | ER Document Report ---
ED Skin Rash/Insect Bite/Abscs - General Chief Complaint: Abscess Stated Complaint: ABSCESS/RIGHT ARMPIT Time Seen by Provider: 07/14/20 12:43 Primary Care Provider: ED BEASLEY MD [Primary Care Provider] - Follow up in 3-5 days Notes: Patient is a 59-year-old female that comes emergency department for chief complaint of a painful, red, swollen area in her right axillary region. This is been present for about 3 to 4 days. She has been placing a topical salve on it without any significant change. The area has not been draining. She denies fever. She denies history of abscesses. She is a type II diabetic but states her blood sugars are very well controlled. Past medical history includes CAD, CHF, hypertension. TRAVEL OUTSIDE OF THE [place] IN LAST 30 DAYS: No - Related Data Allergies/Adverse Reactions: No Known Drug Allergies Allergy (Verified 10/06/18 17:15) tomato [Tomato] Allergy (Verified 10/06/18 17:15) Past Medical History - General Information source: Patient - Social History Smoking Status: Never Smoker Family History: Arthritis, Hypertension, Malignancy, Thyroid Disfunction Patient has homicidal ideation: No - Past Medical History Cardiac Medical History: Reports: Hx Congestive Heart Failure - Diastolic, Hx Hypertension, Hx Pulmonary Embolism Denies: Hx Atrial Fibrillation, Hx Coronary Artery Disease, Hx DVT, Hx Heart Attack, Hx Hypercholesterolemia Pulmonary Medical History: Reports: Hx COPD, Hx Sleep Apnea - Uncertain CPAP pressure setting. No home oxygen. Denies: Hx Asthma, Hx Tuberculosis Neurological Medical History: Denies: Hx Seizures Endocrine Medical History: Denies: Hx Diabetes Mellitus Type 1, Hx Diabetes Mellitus Type 2, Hx Hyperthyroidism, Hx Hypothyroidism Renal/ Medical History: Denies: Hx Peritoneal Dialysis GI Medical History: Reports: Hx Gastroesophageal Reflux Disease. Denies: Hx Cirrhosis, Hx Hepatitis Musculoskeletal Medical History: Reports Hx Arthritis, Reports Hx Musculoskeletal Deformity, Reports Hx Musculoskeletal Trauma Psychiatric Medical History: Reports: Hx Anxiety, Hx Depression Traumatic Medical History: Reports: Hx Fractures Infectious Medical History: Denies: Hx Hepatitis Past Surgical History: Reports: Hx Cholecystectomy, Hx Mastectomy - L lumpectomy x2 and R lumpectomy x1 (begnin per patient)., Hx Orthopedic Surgery - Left anterior cruciate ligament repair; left knee replacement., Other - Pericardiocentesis 3 years ago in [place] to drain an effusion. - Immunizations Immunizations up to date: Yes Hx Diphtheria, Pertussis, Tetanus Vaccination: Yes - unk Hx Pneumococcal Vaccination: 04/13/14 Review of Systems - Review of Systems Constitutional: No symptoms reported EENT: No symptoms reported Cardiovascular: No symptoms reported Respiratory: No symptoms reported Gastrointestinal: No symptoms reported Genitourinary: No symptoms reported Female Genitourinary: No symptoms reported Musculoskeletal: See HPI Skin: See HPI Hematologic/Lymphatic: No symptoms reported Neurological/Psychological: No symptoms reported Physical Exam - Vital signs Vitals: Temp Pulse Resp BP Pulse Ox 98.5 F 92 20 166/97 H 97 07/14/20 12:16 07/14/20 12:16 07/14/20 12:16 07/14/20 12:16 07/14/20 12:16 - Notes Notes: GENERAL: Alert, interacts well. No acute distress. HEAD: Normocephalic, atraumatic. EYES: Pupils equal, round, and reactive to light. Extraocular movements intact. ENT: Oral mucosa moist, tongue midline. Oropharynx unremarkable. Airway patent. NECK: Full range of motion. Supple. Trachea midline. No lymphadenopathy. LUNGS: Clear to auscultation bilaterally, no wheezes, rales, or rhonchi. No respiratory distress. Non-tender chest wall. HEART: Regular rate and rhythm. No murmur ABDOMEN: Soft, non-tender. Non-distended. EXTREMITIES: Moves all 4 extremities spontaneously. No edema, normal radial and dorsalis pedis pulses bilaterally. No cyanosis. BACK: no cervical, thoracic, lumbar midline tenderness. No saddle anesthesia, normal distal neurovascular exam. Moves all extremities in full range of motion. NEUROLOGICAL: Alert and oriented x3. Normal speech. Cranial nerves II through XII grossly intact. Strength 5/5 in all extremities. PSYCH: Normal affect, normal mood. SKIN: There is a fluctuant area in the right mid axillary area with surrounding induration but no overt surrounding cellulitis. No nearby lymphadenopathy noted. Otherwise unremarkable. Course - Re-evaluation Re-evalutation: Patient with an obvious abscess in the right axillary space, no other concerning findings. No fever. Abscess was drained with copious drainage, this was irrigated, dressed, and patient was placed on Bactrim. Discussed care, follow- up, return precautions. Patient states understanding and agreement. - Vital Signs Vital signs: Temp Pulse Resp BP Pulse Ox 98.8 F 89 20 146/96 H 98 07/14/20 21:50 07/14/20 21:50 07/14/20 21:50 07/14/20 21:50 07/14/20 21:50 Procedures - Incision and Drainage Right axilla Type: Single Anesthetic type: 1% Lidocaine w/epi mL's of anesthetic: 8 I&D procedure: Shurclens applied, Sterile dressing applied Incision Method: Incision made by scalpel Amount/type of drainage: about 10-15 cc purulent drainage Discharge - Discharge Clinical Impression: Abscess Condition: Stable Disposition: HOME, SELF-CARE Instructions: Oral Narcotic Medication ([facility]) Additional Instructions: The abscess has been drained. Keep the area clean with soap and water, apply absorbent dressing over the area, take your antibiotic as prescribed to completion. Follow-up with primary care for additional management. Come back if you are worse including severe worsening pain, swelling, spreading redness, fever, or any other concerning or worsening symptoms. Prescriptions: Sulfamethoxazole/Trimethoprim [Bactrim Ds Tablet] 1 each PO BID #14 tablet Referrals: ED BEASLEY MD [Primary Care Provider] - Follow up in 3-5 days
[2020-07-14] MEDS ORDERED: SULFAMETHOXAZOLE/TRIMETHOPRIM 800-160 MG TABLET PO ONE (21:46)
[2020-07-14] MEDS ORDERED: HYDROCODONE/ACETAMINOPHEN 5-325 MG (6 TAB/ER DISP) PO PRN (21:46)
[2020-07-14 21:51] VITALS: BP 146/96
== END 2020-07-14 22:12 | disposition home or self-care (01) ==
LOC: ER 12:08
DX: L02.411 Cutaneous abscess of right axilla (principal); E11.9 Type 2 diabetes mellitus without complications; I25.10 Atherosclerotic heart disease of native coronary artery without angina pectoris; I11.0 Hypertensive heart disease with heart failure; I50.30 Unspecified diastolic (congestive) heart failure; Z91.018 Allergy to other foods
CPT/HCPCS: 99283; 10060; J3490; A9270 ×2